=== PATIENT | male | born 1955 | race Hispanic/Latino ===

== ENCOUNTER 2018-06-15 20:01 | Inpatient (IN) | payer MEDICAID, OTHER ==
--- NOTE | 2018-06-15 20:46 | ED PDOC ---
Arrival/HPI - General Chief Complaint: Shortness Of Breath Time Seen by Provider: 06/15/18 20:05 Historian: Family - History of Present Illness Narrative History of Present Illness (Text): 06/15/18 20:20 Mike Mariee is a 62 year old male, whose past medical history includes CVA, tracheostomy, PEG-tube placement, hypertension, and Parkinson's disease, who presents to the ED brought in by family complaining of shortness of breath. Family report patient came to the ED after arriving on a flight from the [place] and began experiencing shortness of breath/difficulty breathing after landing. Family states patient was recently discharged from a hospital in the [place] last week following treatment for a recent CVA last month, during which he had a tracheostomy tube and PEG tube placed. Family also note patient recently had a fever 2 days ago. Patient is alert on arrival, family note patient is aphasic and bed-ridden following the CVA. Patient denies any chest pain, abdominal pain, back pain, neck pain, dizziness, or any other complaints. PMD: Dr. Kasandra Vasquez Symptom Onset: Gradual Symptom Course: Unchanged Activities at Onset: Light Context: Home Past Medical History - Provider Review Nursing Documentation Reviewed: Yes Primary Care Provider: Eitan Vasquez - Infectious Disease Hx of Infectious Diseases: None - Cardiac Hx Cardiac Disorders: Yes Hx Hypertension: Yes - Pulmonary Hx Respiratory Disorders: No - Neurological Hx Neurological Disorder: Yes HX Cerebrovascular Accident: Yes Hx Parkinson's Disease: Yes - HEENT Hx HEENT Disorder: No - Renal Hx Renal Disorder: No - Endocrine/Metabolic Hx Endocrine Disorders: No - Hematological/Oncological Hx Blood Disorders: No - Integumentary Hx Dermatological Disorder: No - Musculoskeletal/Rheumatological Hx Musculoskeletal Disorders: No - Gastrointestinal Other/Comment: + gtube - Genitourinary/Gynecological Hx Genitourinary Disorders: Yes Other/Comment: HX: PHIMOSIS. +suprapubic catheter - Psychiatric Hx Psychophysiologic Disorder: No Hx Substance Use: No - Surgical History Other/Comment: tracheostomy. gt tube. suprapubic catheter - Anesthesia Hx Anesthesia: Yes Hx Anesthesia Reactions: No Hx Malignant Hyperthermia: No Family/Social History - Physician Review Nursing Documentation Reviewed: Yes Family/Social History: Unknown Family HX Smoking Status: Never Smoked Hx Alcohol Use: Yes Hx Substance Use: No Allergies/Home Meds Allergies/Adverse Reactions: Allergies milk Allergy (Intermediate, Verified 06/15/18 20:19) NAUSEA Home Medications: Home Meds Medication Instructions Recorded Confirmed Atorvastatin [Lipitor] 20 mg PO HS 06/17/15 06/17/15 Lisinopril/Hydrochlorothiazide 1 each PO DAILY 12/03/17 12/04/17 [Lisinopril-Hctz 10-12.5 mg Tab] Carbidopa [Lodosyn] 25 mg PO TID 12/04/17 12/04/17 Review of Systems - Physician Review All systems were reviewed & negative as marked: Yes - Review of Systems Constitutional: Fevers Eyes: Normal ENT: Normal Respiratory: SOB Cardiovascular: Normal. absent: Chest Pain Gastrointestinal: Normal. absent: Abdominal Pain, Diarrhea, Nausea, Vomiting Genitourinary Male: Normal. absent: Dysuria, Frequency, Hematuria, Urinary Output Changes Musculoskeletal: Normal. absent: Back Pain, Neck Pain Skin: Normal. absent: Rash Neurological: Normal. absent: Headache, Dizziness Endocrine: Normal Hemo/Lymphatic: Normal Psychiatric: Normal Physical Exam Vital Signs Reviewed: Yes Vital Signs Temp Pulse Resp BP Pulse Ox 06/15/18 20:23 98.8 F 87 20 101/61 100 Temperature: Afebrile Blood Pressure: Normal Pulse: Regular Respiratory Rate: Normal Appearance: Positive for: Well-Appearing, Non-Toxic, Comfortable Pain Distress: None Mental Status: Positive for: Alert and Oriented X 3 - Systems Exam Head: Present: Atraumatic, Normocephalic Pupils: Present: PERRL Extroacular Muscles: Present: EOMI Conjunctiva: Present: Normal Mouth: Present: Moist Mucous Membranes Neck: Present: Normal Range of Motion, Other (Tracheostomy) Respiratory/Chest: Present: Clear to Auscultation, Good Air Exchange. No: Respiratory Distress, Accessory Muscle Use Cardiovascular: Present: Regular Rate and Rhythm, Normal S1, S2. No: Murmurs Abdomen: Present: Feeding Tubes (PEG tube). No: Tenderness, Distention, Peritoneal Signs Genitourinary Male: Present: Other (Suprapubic catheter) Back: Present: Normal Inspection. No: CVA Tenderness, Midline Tenderness, Paraspinal Tenderness Upper Extremity: Present: Normal Inspection. No: Cyanosis, Edema Lower Extremity: Present: Normal Inspection. No: Edema Neurological: Present: GCS=15, CN II-XII Intact. No: Speech Normal (Aphasic (old)) Skin: Present: Warm, Dry, Normal Color. No: Rashes Psychiatric: Present: Alert, Oriented x 3, Normal Insight, Normal Concentration Medical Decision Making ED Course and Treatment: 06/15/18 20:20 Impression: 62 year old male brought in by family for difficulty breath today. Plan: -- EKG -- Chest X-ray -- Labs -- Reassess and disposition Prior Visits: Notes and results from previous visits were reviewed. Progress Notes: Tracheostomy tube suctioned by nurse in Emergency department. Pt notes some relief after suctioning. Yellowish sputum noted. Reviewed EKG, NSR at 81 bpm. Prolonged QT. Non-specific ST/T wave changes. 06/15/18 22:15 Chest X-ray: LUNGS: There is evidence for pulmonary venous congestion compatible with mild CHF. PLEURAL SPACES: No pleural effusion or pneumothorax. MEDIASTINUM: The cardiac silhouette is mildly enlarged. BONES: No aggressive appearing osseous lesion seen. IMPRESSION: 1. The cardiac silhouette is mildly enlarged. 2. Mild CHF Electronically signed on Jun 15, 2018 10:13:41 PM EDT by: Beka Segura M.D., M.B.A., Certified By [employer] Trained MRI and CT Specialist 06/15/18 22:36 Case discussed with medical case manager longwall foreman, who is aware and agrees with plan. 06/15/18 22:[address] Al, who is aware and agrees with plan. Accepts pt in to hospitalist service. Pt will go to [facility] observation for pneumonia. - Lab Interpretations I have reviewed the lab results: Yes - RAD Interpretation Radiology Orders: 06/15/18 20:22 CHEST PORTABLE [RAD] Stat Copper Miner: ED Physician - EKG Interpretation Interpreted by ED Physician: Yes Type: 12 lead EKG - Scribe Statement The provider has reviewed the documentation as recorded by the Gillian Harrell Provider Scribe Attestation: All medical record entries made by the Scribe were at my direction and personally dictated by me. I have reviewed the chart and agree that the record accurately reflects my personal performance of the history, physical exam, medical decision making, and the department course for this patient. I have also personally directed, reviewed, and agree with the discharge instructions and disposition. Disposition/Present on Arrival - Present on Arrival Any Indicators Present on Arrival: No History of DVT/PE: No History of Uncontrolled Diabetes: No Urinary Catheter: Yes History of Decub. Ulcer: No History Surgical Site Infection Following: None - Disposition Have Diagnosis and Disposition been Completed?: Yes Diagnosis: Pneumonia Disposition: HOSPITALIZED Disposition Time: 22:33 Patient Problems: Current Active Problems Problem Status Onset Pneumonia Acute Condition: STABLE Forms: Mobile [employer] (Slovak)
[2018-06-15 20:50] LABS: HEMOGLOBIN 12.9 g/dL (14.0-18.0); MEAN CELL VOLUME 89.2 fl (80.0-105.0); MEAN CORPUSCULAR HEMOGLOBIN 29.7 pg (25.0-35.0); MEAN CORPUSCULAR HGB CONC 33.2 g/dl (31.0-37.0); MEAN PLATELET VOLUME 10.5 fl (7.0-11.0); RBC 4.35 10^6/uL (3.5-6.1); RED CELL DISTRIBUTION WIDTH 13.5 % (11.5-14.5); WHITE BLOOD COUNT 12.4 10^3/uL (4.5-11.0)
[2018-06-15 21:00] LABS: ALB/GLOB RATIO 0.9 (1.1-1.8); ALBUMIN 3.7 g/dL (3.0-4.8); ALT/SGPT 24 U/L (7-56); AST/SGOT 28 U/L (17-59); BLOOD UREA NITROGEN 23 mg/dL (7-21); GFR NON-AFRICAN AMERICAN > 60
[2018-06-15] MEDS ORDERED: Azithromycin 500MG/NS 250ml 500 MG/250 ML BAG IV STA (22:32)
[2018-06-15] MEDS ORDERED: cefTRIAXone 1 gm 1 GM/100 ML BAG IV STA (22:32)
--- NOTE | 2018-06-16 00:24 | CP.PCM.HP ---
<Abhijeet Lucas - Last Filed: 06/16/18 05:10> History of Present Illness - History of Present Illness History of Present Illness: PGY-1 Medicine H&P for Dr. Al CC: Shortness of breath HPI: Patient is a 62 year old male with a past medical history of CVA (1 month ago), tracheostomy, PEG-tube placement, suprapubic catheter placement, hypertension, and Parkinson's disease, who presents to the ED brought in by family complaining of shortness of breath. and daughter was at bedside. History was provided by the daughter as patient is unable to speak due to his tracheostomy. Daughter states that patient is having complaints of shortness of breath that started today. Patient arrived from a flight from [facility] today. Patient's daughter states that patient flew to [facility] 7 weeks ago for vacation. Patient had a stroke on 05/11/2018 and was hospitalized in the [facility]. During his hospital stay, he had a tracheostomy tube, PEG tube, and suprapubic catheter placed. Patient was discharged 3 days ago from the hospital without discharge instructions as per daughter. Patient has been bed- ridden ever since the stroke. Daughter states that the patient had a fever at home today but was unsure of the temperature. She also states that her father had lost weight due to his hospitalization and unsure how much weight he lost. She stae he has no complaints of chills, night sweats, headaches, changes in vision, abdominal pain, nausea, vomiting, diarrhea, or urinary symptoms. 12-point ROS reviewed and negative, except mentioned in HPI. PMHx: CVA, tracheostomy, hypertension, and Parkinson's disease PSHx: Surgery to correct phimosis, tracheostomy, PEG-tube placement, suprapubic catheter placement Allergies: NKDA Social Hx: Denies tobacco, alcohol, or drug use. 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 Family Hx: Mother had diabetes. Brother of a heart attack at age 63. Medications: see MAR PMD: Dr. Kasandra Vasquez Pharmacy: [facility] on in [place]- will call pharmacy in the morning Present on Admission - Present on Admission Any Indicators Present on Admission: Yes History of DVT/PE: No History of Uncontrolled Diabetes: No Urinary Catheter: Yes (Suprapubic catheter) Decubitus Ulcer Present: Yes Decubitus Ulcer Stage: II Past Patient History - Infectious Disease Hx of Infectious Diseases: None - Past Medical History & Family History Past Medical History?: Yes - Past Social History Smoking Status: Never Smoked - CARDIAC Hx Cardiac Disorders: Yes Hx Hypertension: Yes - PULMONARY Hx Respiratory Disorders: No - NEUROLOGICAL Hx Neurological Disorder: Yes HX Cerebrovascular Accident: Yes Hx Parkinson's Disease: Yes - HEENT Hx HEENT Problems: No - RENAL Hx Chronic Kidney Disease: No - ENDOCRINE/METABOLIC Hx Endocrine Disorders: No - HEMATOLOGICAL/ONCOLOGICAL Hx Blood Disorders: No - INTEGUMENTARY Hx Dermatological Problems: No - MUSCULOSKELETAL/RHEUMATOLOGICAL Hx Musculoskeletal Disorders: No - GASTROINTESTINAL Other/Comment: + gtube - GENITOURINARY/GYNECOLOGICAL Hx Genitourinary Disorders: Yes Other/Comment: HX: PHIMOSIS. +suprapubic catheter - PSYCHIATRIC Hx Psychophysiologic Disorder: No Hx Substance Use: No - SURGICAL HISTORY Other/Comment: tracheostomy. gt tube. suprapubic catheter - ANESTHESIA Hx Anesthesia: Yes Hx Anesthesia Reactions: No Hx Malignant Hyperthermia: No Meds Allergies/Adverse Reactions: Allergies Allergy/AdvReac Type Severity Reaction Status Date / Time milk Allergy Intermediate NAUSEA Verified 06/15/18 20:19 Physical Exam - Constitutional Appears: No Acute Distress, Chronically Ill - Head Exam Head Exam: ATRAUMATIC, NORMAL INSPECTION - Eye Exam Eye Exam: EOMI, Normal appearance - ENT Exam ENT Exam: Mucous Membranes Moist - Neck Exam Additional comments: Tracheostomy tube and collar in place. - Respiratory Exam Respiratory Exam: Rhonchi (course rhonchi heard on right lung). absent: Accessory Muscle Use, Rales, Wheezes, Respiratory Distress - Cardiovascular Exam Cardiovascular Exam: REGULAR RHYTHM, +S1, +S2. absent: Bradycardia, Tachycardia, Gallop, Rubs, Systolic Murmur - GI/Abdominal Exam GI & Abdominal Exam: Normal Bowel Sounds, Soft. absent: Distended, Firm, Guarding, Tenderness Additional comments: G-tube in place - Exam Exam: NORMAL INSPECTION Additional comments: No phimosis noted. Suprapubic catheter in place draining clear, yellow urine. - Extremities Exam Extremities exam: Negative for: calf tenderness, pedal edema - Back Exam Back exam: absent: CVA tenderness (L), CVA tenderness (R), paraspinal tenderness, vertebral tenderness - Neurological Exam Neurological exam: Alert, CN II-XII Intact, Oriented x3 - Psychiatric Exam Psychiatric exam: Normal Affect, Normal Mood - Skin Skin Exam: Dry, Normal Color, Warm Additional comments: Stage I decubitus ulcers noted present on sacrum and adjoining area of buttocks. Single 4 x 4cm unstageable ulcer on distal lateral left leg Results - Vital Signs Recent Vital Signs: Last Vital Signs Temp 98.8 F 06/15/18 20:23 Pulse 87 06/15/18 20:23 Resp 20 06/15/18 20:23 BP 101/61 06/15/18 20:23 Pulse Ox 97 06/15/18 20:30 - Labs Result Diagrams: 06/15/18 20:40 06/15/18 20:40 Labs: Laboratory Results - last 24 hr 06/15/18 06/15/18 06/15/18 20:40 20:40 20:45 WBC 12.4 H RBC 4.35 Hgb 12.9 L Hct 38.8 L MCV 89.2 MCH 29.7 MCHC 33.2 RDW 13.5 Plt Count 347 MPV 10.5 Sodium 140 Potassium 3.8 Chloride 99 Carbon Dioxide 26 Anion Gap 18 BUN 23 H Creatinine 0.8 Est GFR ( Amer) > 60 Est GFR (Non-Af Amer) > 60 Random Glucose 105 Calcium 9.0 Phosphorus Total Bilirubin 0.6 AST 28 ALT 24 Alkaline Phosphatase 108 NT-Pro-B Natriuret Pep 78.1 Total Protein 7.8 Albumin 3.7 Globulin 4.1 Albumin/Globulin Ratio 0.9 L 06/15/18 20:45 WBC RBC Hgb Hct MCV MCH MCHC RDW Plt Count MPV Sodium Potassium Chloride Carbon Dioxide Anion Gap BUN Creatinine Est GFR ( Amer) Est GFR (Non-Af Amer) Random Glucose Calcium Phosphorus 4.3 Total Bilirubin AST ALT Alkaline Phosphatase NT-Pro-B Natriuret Pep Total Protein Albumin Globulin Albumin/Globulin Ratio Assessment & Plan - Assessment and Plan (Free Text) Assessment: Patient is a 62 year old male with a past medical history of CVA (1 month ago), tracheostomy, PEG-tube placement, hypertension, and Parkinson's disease, who presents to the ED brought in by family complaining of shortness of breath. Plan: Pneumonia - CXR: pending official read - Start Rocephin 1g PO QD (Started on 06/16) - Start Azithromax 500mg PO QD (Started on 06/16) - CURB-65 score: 1 - ID consulted, Dr. Busby - Follow up Procalcitonin level, blood cultures - Joyoebs PRN for SOB History of stroke, unknown cause - Patient had a CVA while vacationing in [facility], medical records limited - EKG: NSR @ 81 bpm, no ST changes - Start Lipitor 20mg HS, ASA daily - Neurology consulted, Joey Camejo - Follow up HbA1C, Lipid panel, TSH - Follow up Echocardiogram, carotid ultrasound - PT/OT/Speech therapy Hypertension - Continue Lisinopril 10mg PEG QD and HTZ 12.5mg PEG QD with parameters - Continue to monitor Decubitus ulcer - Local wound care, wound care nurse consulted - Turn and reposition Q2H - Air mattress PEG - Patient has a G-tube placed after his CVA and tracheostomy placement - Patient is allergic to milk, consulted sap pi architect for recommendations for tube feeding - Flush Q4 hours after feeds Suprapubic catheter - Placed during hospital stay in [facility] - Patient and family unsure why it was placed - Patient is draining clear, yellow urine Tracheostomy - Placed during hospital stay in [facility] - Suction PRN - Patient was initially intubated Parkinson's disease - Continue home Sinemet Prophylaxis: - DVT: Lovenox 40mg SC Q8 - GI: Protonix 40mg IVF QD Patient seen and case discussed with attending, Dr. Al. Abhijeet Lucas, PGY-1 <Jyoti Al - Last Filed: 06/16/18 05:52> Results - Vital Signs Recent Vital Signs: Last Vital Signs Temp 98.8 F 06/15/18 20:23 Pulse 76 06/15/18 23:41 Resp 18 06/16/18 01:32 BP 108/56 L 06/15/18 23:41 Pulse Ox 95 06/15/18 23:41 - Labs Result Diagrams: 06/15/18 20:40 06/15/18 20:40 Labs: Laboratory Results - last 24 hr 06/15/18 06/15/18 06/15/18 20:40 20:40 20:45 WBC 12.4 H RBC 4.35 Hgb 12.9 L Hct 38.8 L MCV 89.2 MCH 29.7 MCHC 33.2 RDW 13.5 Plt Count 347 MPV 10.5 Sodium 140 Potassium 3.8 Chloride 99 Carbon Dioxide 26 Anion Gap 18 BUN 23 H Creatinine 0.8 Est GFR ( Amer) > 60 Est GFR (Non-Af Amer) > 60 Random Glucose 105 Calcium 9.0 Phosphorus Total Bilirubin 0.6 AST 28 ALT 24 Alkaline Phosphatase 108 NT-Pro-B Natriuret Pep 78.1 Total Protein 7.8 Albumin 3.7 Globulin 4.1 Albumin/Globulin Ratio 0.9 L 06/15/18 20:45 WBC RBC Hgb Hct MCV MCH MCHC RDW Plt Count MPV Sodium Potassium Chloride Carbon Dioxide Anion Gap BUN Creatinine Est GFR ( Amer) Est GFR (Non-Af Amer) Random Glucose Calcium Phosphorus 4.3 Total Bilirubin AST ALT Alkaline Phosphatase NT-Pro-B Natriuret Pep Total Protein Albumin Globulin Albumin/Globulin Ratio Attending/Attestation - Attestation I have personally seen and examined this patient.: Yes I have fully participated in the care of the patient.: Yes I have reviewed all pertinent clinical information: Yes Notes (Text): 06/16/18 05:47 Pt seen with the resident by the bedside. Case discussed in detail. In addition to findings noted on physical exam,pt has a residual weakness of his R side. Agree with rest of documentation,assessment and plan of treatment.
[2018-06-16 08:08] LABS: BASO # 0.03 K/mm3 (0.0-2.0); BASO % 0.3 % (0.0-3.0); EOS # 0.1 (0.0-0.7); HEMOGLOBIN 11.7 g/dL (14.0-18.0); LYMPH # 1.4 (1.2-3.4); LYMPH % 15.8 % (22.0-35.0); MEAN CELL VOLUME 90.5 fl (80.0-105.0); MEAN CORPUSCULAR HEMOGLOBIN 29.3 pg (25.0-35.0); MEAN CORPUSCULAR HGB CONC 32.3 g/dl (31.0-37.0); MEAN PLATELET VOLUME 10.8 fl (7.0-11.0); MONO # 0.4 (0.1-0.6); MONO % 4.5 % (1.0-6.0); RED CELL DISTRIBUTION WIDTH 13.7 % (11.5-14.5); WHITE BLOOD COUNT 9.1 10^3/uL (4.5-11.0)
[2018-06-16 08:17] LABS: ALB/GLOB RATIO 0.9 (1.1-1.8); ALBUMIN 3.3 g/dL (3.0-4.8); ALT/SGPT 20 U/L (7-56); AST/SGOT 27 U/L (17-59); BLOOD UREA NITROGEN 23 mg/dL (7-21); CALCIUM 8.7 mg/dL (8.4-10.5); GFR NON-AFRICAN AMERICAN > 60; HDL CHOLESTEROL 23 mg/dL (29-60)
[2018-06-16 08:24] LABS: LDL CHOLESTEROL 77 mg/dL (0-129)
[2018-06-16] MEDS ORDERED: Azithromycin 500MG/NS 250ml 500 MG/250 ML BAG IVPB SCH (10:00)
[2018-06-16] MEDS ORDERED: Azithromycin 250 MG in Sodium Chloride 0.9% 250 ML IVPB SCH (10:00)
[2018-06-16] MEDS ORDERED: cefTRIAXone 1 gm 1 GM/100 ML BAG IVPB SCH (10:00)
--- NOTE | 2018-06-16 10:14 | RAD ---
Date of service: 06/15/2018 HISTORY: sob COMPARISON: 09/18/2017 TECHNIQUE: 1 view obtained. FINDINGS: LUNGS: No active pulmonary disease. PLEURA: No significant pleural effusion identified, no pneumothorax apparent. CARDIOVASCULAR: No aortic atherosclerotic calcification present. Normal cardiac size. No pulmonary vascular congestion. OSSEOUS STRUCTURES: No significant abnormalities. VISUALIZED UPPER ABDOMEN: Normal. OTHER FINDINGS: None. IMPRESSION: No active disease.
[2018-06-16] MEDS: Enoxaparin 40 mg Syringe SC SCH (10:43)
--- NOTE | 2018-06-16 10:51 | CARD ---
APPROVED REPORT Date of service: 06/15/2018 EKG Measurement Heart [id number] <Conclusion> Normal sinus rhythm Prolonged QT Abnormal ECG
--- NOTE | 2018-06-16 12:18 | US ---
PROCEDURE: Bilateral carotid artery duplex ultrasound HISTORY: Carotid stenosis CVA PHYSICIAN(S): Enrique Ellsworth MD. TECHNIQUE: Duplex sonography and color-flow Doppler were used to evaluate the carotid bifurcations and limited segments of the vertebral arteries bilaterally. FINDINGS: There is mild smooth heterogeneous plaque noted at the carotid bifurcations bilaterally. The peak systolic velocity in the proximal right internal carotid artery is 76 cm/sec. This corresponds to a 20 to 39% proximal right ICA stenosis. Normal systolic velocities are noted in the proximal right external carotid artery. There is antegrade flow in the right vertebral artery. The peak systolic velocity in the proximal left internal carotid artery is 80 cm/sec. This corresponds to a 20 to 39% proximal left ICA stenosis. Normal systolic velocities are noted in the proximal left external carotid artery. There is antegrade flow in the left vertebral artery. IMPRESSION: 1. Bilateral 20-39% proximal ICA stenoses. 2. Antegrade flow in both vertebral arteries.
[2018-06-16] MEDS ORDERED: Iohexol 350 MG/100 ML VIAL ONE (13:32)
[2018-06-16 16:29] LABS: ARTERIAL BLOOD GAS HCO3 24.9 mmol/L (21-28); ARTERIAL BLOOD GAS PCO2 35 mm/Hg (35-45); ARTERIAL BLOOD GAS PH 7.46 (7.35-7.45)
--- NOTE | 2018-06-16 16:36 | CARD ---
APPROVED REPORT Date of service: 06/16/2018 EXAM: Two-dimensional and M-mode echocardiogram with Doppler and color Doppler. INDICATION CVA/TIA 2D DIMENSIONS Left Atrium (2D)3.5 (1.6-4.0cm)IVSd1.4 (0.7-1.1cm) LVDd4.2 (3.9-5.9cm)PWd1.1 (0.7-1.1cm) LVDs2.8 (2.5-4.0cm)FS (%) 32.9 % LVEF (%)61.8 (>50%) M-Mode DIMENSIONS Aortic Root3.10 (2.2-3.7cm)Aortic Cusp Exc.1.50 (1.5-2.0cm) Aortic Valve AoV Peak Pcyjfusl513.0cm/Lisandra Peak GR.12mmHg Mitral Valve MV E Xxbcezci58.1cm/sMV A Buwaugtg02.7cm/sE/A ratio0.8 TDI E/Lateral E'0.0E/Medial E'0.0 LEFT VENTRICLE The left ventricle is normal size. There is mild concentric left ventricular hypertrophy. The left ventricular function is normal. The left ventricular ejection fraction is within the normal range. There is normal LV segmental wall motion. Transmitral Doppler flow pattern is Grade I-abnormal relaxation pattern. RIGHT VENTRICLE The right ventricle is normal size. There is normal right ventricular wall thickness. The right ventricular systolic function is normal. ATRIA The left atrium size is normal. The right atrium size is normal. AORTIC VALVE The aortic valve is bicuspid. There is moderate to severe aortic regurgitation. MITRAL VALVE The mitral valve is normal in structure. There is no mitral valve regurgitation noted. There is no mitral valve stenosis. TRICUSPID VALVE The tricuspid valve is normal in structure. There is trace tricuspid regurgitation. GREAT VESSELS The aortic root is normal in size. The IVC is normal in size and collapses >50% with inspiration. <Conclusion> There is mild concentric left ventricular hypertrophy. The left ventricular function is normal. The left ventricular ejection fraction is within the normal range. There is normal LV segmental wall motion. Transmitral Doppler flow pattern is Grade I-abnormal relaxation pattern. The aortic valve is bicuspid. There is moderate to severe aortic regurgitation.
--- NOTE | 2018-06-16 20:51 | CON ---
DATE: 06/16/2018 The patient is seen earlier today in room 571, bed 1. CHIEF COMPLAINT: Shortness of breath intermittently times one day. HISTORY OF PRESENT ILLNESS: A 62-year-old male, who was visiting [facility] and had a cerebrovascular accident and was hospitalized for over a month, also with hypertension and Parkinson's disease. In the [place], the patient had a tracheostomy and PEG tube placement and suprapubic catheter and was discharged from the hospital. The patient's family flew him back to [facility] and yesterday after arriving in [place], he was brought into [facility]. There has been no fevers, no chills. There is mild shortness of breath. No chest pain. No abdominal pain, diarrhea, or constipation. PAST MEDICAL HISTORY: Significant for Parkinson's and recent cerebrovascular accident with one-sided weakness and hypertension. PAST SURGICAL HISTORY: Significant for circumcision on 12/07/2017. The patient with also recent trach and PEG and suprapubic catheter. ALLERGIES: THE PATIENT IS ALLERGIC TO MILK. MEDICATIONS AT HOME: Include the carbidopa, atorvastatin, lisinopril, hydrochlorothiazide. PHYSICAL EXAMINATION: GENERAL: He is in bed, appearing chronically ill, cachectic, restrained. VITAL SIGNS: Temperature of 98, pulse of 76 and up to 87, respiratory rate of 18, blood pressure is 105/60. HEENT: Unremarkable. NECK: Supple. LUNGS: Have decreased breath sounds. HEART: Normal S1, S2. ABDOMEN: Soft, nontender. LABORATORY EXAMINATION: Reveals a white count of 12,400, hemoglobin of 12, platelets of 347 with the BUN of 23, creatinine of 0.8 and LFTs are noted. The patient had a chest x-ray, official report is not available. ASSESSMENT AND PLAN: A 62-year-old male with: 1. Recent cerebrovascular accident with weakness with leukocytosis, must rule out healthcare-associated pneumonia versus urine as a source and trach, PEG or a suprapubic catheter. We will start the patient on vancomycin and Maxipime pending panculture results of procalcitonin, blood, urine, sputum, and MRSA screen. We will discontinue the azithromycin and ceftriaxone, and use vancomycin and Maxipime Aren Webb MD [facility] # [id number]
[2018-06-16] MEDS: Sodium Chloride 0.9% 1,000 ML IV SCH (21:00)
--- NOTE | 2018-06-16 23:39 | CP.PCM.CON ---
<MeloMoy - Last Filed: 06/17/18 06:50> History of Present Illness - History of Present Illness History of Present Illness: Neuro consult (Dr. Cook): Melo PGY - 2 Consult requested by: Dr. Al Reason for consult: CVA in [facility] 62 M with pertinent medical history of recent CVA and Parkinson's Disease presents s/p recent CVA. Per patient's daughter, he had a stroke on 06/11/2018 and was hospitalized in the [facility]. During his hospital stay, he had a tracheostomy tube, PEG tube, and suprapubic catheter placed. Patient was discharged 3 days ago from the hospital, with discharge instructions in [place]. Patient is currently unable to speak 2/2 his tracheostomy tube, but is able to follow commands and comprehends what we are saying during interview. Review of Systems: 12-point ROS reviewed and negative, except mentioned in HPI. PMHx: CVA, tracheostomy, hypertension, and Parkinson's disease PSHx: Surgery to correct phimosis, tracheostomy, PEG-tube placement, suprapubic catheter placement Allergies: NKDA Social Hx: Denies tobacco, alcohol, or drug use. 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 Family Hx: Mother had diabetes. Brother of a heart attack at age 63. Medications: see MAR Past Patient History - Infectious Disease Hx of Infectious Diseases: None - Past Medical History & Family History Past Medical History?: Yes - Past Social History Smoking Status: Never Smoked - CARDIAC Hx Cardiac Disorders: Yes Hx Hypertension: Yes - PULMONARY Hx Respiratory Disorders: No - NEUROLOGICAL HX Cerebrovascular Accident: Yes (1 month ago) - HEENT Hx HEENT Problems: No - RENAL Hx Chronic Kidney Disease: No - ENDOCRINE/METABOLIC Hx Endocrine Disorders: No - HEMATOLOGICAL/ONCOLOGICAL Hx Blood Disorders: No - INTEGUMENTARY Hx Dermatological Problems: No - MUSCULOSKELETAL/RHEUMATOLOGICAL Hx Musculoskeletal Disorders: No - GASTROINTESTINAL Other/Comment: + gtube - GENITOURINARY/GYNECOLOGICAL Hx Genitourinary Disorders: Yes Other/Comment: HX: PHIMOSIS. +suprapubic catheter - PSYCHIATRIC Hx Psychophysiologic Disorder: No Hx Substance Use: No - SURGICAL HISTORY Other/Comment: tracheostomy. gt tube. suprapubic catheter - ANESTHESIA Hx Anesthesia: Yes Hx Anesthesia Reactions: No Hx Malignant Hyperthermia: No Meds Allergies/Adverse Reactions: Allergies Allergy/AdvReac Type Severity Reaction Status Date / Time milk Allergy Intermediate NAUSEA Verified 06/15/18 20:19 - Medications Medications: Current Medications Albuterol/Ipratropium (Duoneb 3 Mg/0.5 Mg (3 Ml) Ud) 3 ml IH Q2H PRN PRN Reason: Shortness of Breath Aspirin (Aspirin Chewable) 81 mg PEG [facility]ILY [facility] Last Admin: 06/16/18 10:43 Dose: 81 mg Atorvastatin Calcium (Lipitor) 80 mg PEG DIN [facility] Last Admin: 06/16/18 18:00 Dose: 80 mg Carbidopa/Levodopa (Sinemet) 1 tab PEG Q8 [facility] Last Admin: 06/16/18 21:35 Dose: 1 tab Enoxaparin Sodium (Lovenox) 40 mg SC [facility]ILY [facility]; Protocol Last Admin: 06/16/18 10:43 Dose: 40 mg Hydrochlorothiazide (Hydrodiuril) 12.5 mg PEG DAILY [facility] Last Admin: 06/16/18 10:42 Dose: 12.5 mg Sodium Chloride (Sodium Chloride 0.9%) 1,000 mls @ 100 mls/hr IV .Q10H [facility] Lisinopril (Zestril) 10 mg PEG [facility]ILY [facility] Last Admin: 06/16/18 10:46 Dose: 10 mg Pantoprazole Sodium (Protonix Inj) 40 mg IVP [facility]ILY [facility] Last Admin: 06/16/18 10:43 Dose: 40 mg Physical Exam - Constitutional Appears: Non-toxic - Head Exam Head Exam: ATRAUMATIC, NORMAL INSPECTION, NORMOCEPHALIC Additional comments: Tracheostomy tube in place - Eye Exam Eye Exam: EOMI, Normal appearance, PERRL Pupil Exam: NORMAL ACCOMODATION, PERRL - ENT Exam ENT Exam: Mucous Membranes Moist, Normal Exam - Neck Exam Neck exam: Positive for: Normal Inspection - Respiratory Exam Respiratory Exam: Clear to Auscultation Bilateral, NORMAL BREATHING PATTERN - Cardiovascular Exam Cardiovascular Exam: REGULAR RHYTHM - GI/Abdominal Exam GI & Abdominal Exam: Normal Bowel Sounds, Soft. absent: Tenderness - Extremities Exam Extremities exam: Positive for: normal inspection - Back Exam Back exam: NORMAL INSPECTION - Neurological Exam Neurological exam: Alert, CN II-XII Intact, Normal Gait, Oriented x3, Reflexes Normal - Psychiatric Exam Psychiatric exam: Normal Affect, Normal Mood - Skin Skin Exam: Dry, Intact, Normal Color, Warm - Additional Findings Additional findings: Patient is able to move all extremities; no loss of sensation; no cerebellar signs; follows commands; no CN deficits. Cogwheel rigidity, resting tremor, mask facies noted Results - Vital Signs Recent Vital Signs: Last Vital Signs Temp 98.9 F 06/16/18 21:51 Pulse 61 06/16/18 21:51 Resp 18 06/16/18 21:51 BP 101/62 06/16/18 21:51 Pulse Ox 96 06/16/18 21:51 - Labs Result Diagrams: 06/16/18 07:30 06/16/18 07:30 Labs: Laboratory Results - last 24 hr 06/16/18 06/16/18 06/16/18 07:30 07:30 07:30 WBC 9.1 D RBC 4.00 Hgb 11.7 L Hct 36.2 L MCV 90.5 MCH 29.3 MCHC 32.3 RDW 13.7 Plt Count 322 MPV 10.8 Neut % (Auto) 78.4 H Lymph % (Auto) 15.8 L Russell % (Auto) 4.5 Eos % (Auto) 1.0 L Baso % (Auto) 0.3 Lymph # (Auto) 1.4 Russell # (Auto) 0.4 Eos # (Auto) 0.1 Baso # (Auto) 0.03 Absolute Neuts (auto) 7.15 H pCO2 pO2 HCO3 ABG pH ABG Total CO2 ABG O2 Saturation ABG Base Excess ABG Potassium Glucose Lactate FiO2 Sodium 140 Potassium 3.3 L Chloride 103 Carbon Dioxide 28 Anion Gap 13 BUN 23 H Creatinine 0.6 L Est GFR ( Amer) > 60 Est GFR (Non-Af Amer) > 60 Random Glucose 77 Hemoglobin A1c 5.0 Calcium 8.7 Phosphorus 3.4 Magnesium 2.1 Total Bilirubin 0.6 AST 27 ALT 20 Alkaline Phosphatase 97 Total Protein 7.0 Albumin 3.3 Globulin 3.7 Albumin/Globulin Ratio 0.9 L Triglycerides 104 Cholesterol 122 L LDL Cholesterol Direct 77 HDL Cholesterol 23 L Procalcitonin TSH 3rd Generation Arterial Blood Potassium 06/16/18 06/16/18 06/16/18 07:30 07:30 16:19 WBC RBC Hgb Hct MCV MCH MCHC RDW Plt Count MPV Neut % (Auto) Lymph % (Auto) Russell % (Auto) Eos % (Auto) Baso % (Auto) Lymph # (Auto) Russell # (Auto) Eos # (Auto) Baso # (Auto) Absolute Neuts (auto) pCO2 35 pO2 69.0 L HCO3 24.9 ABG pH 7.46 H ABG Total CO2 26.0 ABG O2 Saturation 97.0 ABG Base Excess 1.4 ABG Potassium 3.5 L Glucose 74 L Lactate 0.7 FiO2 28.0 Sodium 140.0 Potassium Chloride 107.0 Carbon Dioxide Anion Gap BUN Creatinine Est GFR ( Amer) Est GFR (Non-Af Amer) Random Glucose Hemoglobin A1c Calcium Phosphorus Magnesium Total Bilirubin AST ALT Alkaline Phosphatase Total Protein Albumin Globulin Albumin/Globulin Ratio Triglycerides Cholesterol LDL Cholesterol Direct HDL Cholesterol Procalcitonin 0.13 L TSH 3rd Generation 1.23 Arterial Blood Potassium 3.5 L Assessment & Plan - Assessment and Plan (Free Text) Assessment: 62 M with pertinent history of alleged CVA presents s/p trach, peg tube placement after being hospitalized in the . Given patient's current physical exam, imaging findings, it is unclear that patient actually had a stroke; he is without sensory, motor, speech, or visual deficits. Many of the symptoms that likely led to his hospitalization in are due to his Parkinson's disease. Plan Generalized Weakness, rule out acute or chronic CVA - MRA, CTA, and CT Head - PT/OT/LUNCH COOK - Nutrition consult to get patient's strength up - Start patient on Amantadine to help with symptoms <Naseem Cook - Last Filed: 06/18/18 12:02> Meds - Medications Medications: Current Medications Albuterol/Ipratropium (Duoneb 3 Mg/0.5 Mg (3 Ml) Ud) 3 ml IH Q2H PRN PRN Reason: Shortness of Breath Albuterol/Ipratropium (Duoneb 3 Mg/0.5 Mg (3 Ml) Ud) 3 ml [facility]H [id number] Last Admin: 06/18/18 07:47 Dose: 3 ml Amantadine HCl (Amantadine 100 Mg Cap) 100 mg PO DAILY [facility] Last Admin: 06/18/18 10:11 Dose: 100 mg Aspirin (Aspirin Chewable) 81 mg PEG [facility]ILY [facility] Last Admin: 06/18/18 10:11 Dose: 81 mg Atorvastatin Calcium (Lipitor) 80 mg PEG [facility]IN [facility] Last Admin: 06/17/18 19:06 Dose: 80 mg Carbidopa/Levodopa (Sinemet) 1 tab PEG 1100,1600 [facility] Last Admin: 06/18/18 10:11 Dose: 1 tab Carbidopa/Levodopa (Sinemet 10/100) 2 tab PO 0700 [facility] Last Admin: 06/18/18 07:30 Dose: Not Given Enoxaparin Sodium (Lovenox) 40 mg SC [facility]ILY [facility]; Protocol Last Admin: 06/18/18 10:10 Dose: 40 mg Hydrochlorothiazide (Hydrodiuril) 12.5 mg PEG [facility]ILY [facility] Last Admin: 06/18/18 10:10 Dose: 12.5 mg Cefepime HCl (Maxipime 2gm) 2 gm in 100 mls @ 100 mls/hr IVPB Q8H [facility]; Protocol Stop: 06/22/18 07:46 Last Admin: 06/18/18 07:00 Dose: 100 mls/hr Lisinopril (Zestril) 10 mg PEG [facility] Last Admin: 06/18/18 10:11 Dose: 10 mg Pantoprazole Sodium (Protonix Inj) 40 mg IVP [facility]ILY [facility] Last Admin: 06/18/18 10:11 Dose: 40 mg Results - Vital Signs Recent Vital Signs: Last Vital Signs Temp 99 F 06/18/18 06:00 Pulse 65 06/18/18 06:00 Resp 18 06/18/18 06:00 BP 120/69 06/18/18 06:00 Pulse Ox 95 06/18/18 06:00 - Labs Result Diagrams: 06/18/18 07:00 06/18/18 07:00 Labs: Laboratory Results - last 24 hr 06/18/18 06/18/18 06/18/18 07:00 07:00 11:47 WBC 5.9 RBC 3.87 Hgb 11.2 L Hct 34.7 L MCV 89.7 MCH 28.9 MCHC 32.3 RDW 13.4 Plt Count 293 MPV 10.6 Neut % (Auto) 74.5 H Lymph % (Auto) 18.4 L Russell % (Auto) 5.9 Eos % (Auto) 1.2 L Baso % (Auto) 0.0 Lymph # (Auto) 1.1 L Russell # (Auto) 0.4 Eos # (Auto) 0.1 Baso # (Auto) 0.00 Absolute Neuts (auto) 4.42 Sodium 141 Potassium 3.7 Chloride 107 Carbon Dioxide 29 Anion Gap 10 BUN 22 H Creatinine 0.6 L Est GFR ( Amer) > 60 Est GFR (Non-Af Amer) > 60 POC Glucose (mg/dL) 158 H Random Glucose 130 H Calcium 8.2 L Total Bilirubin 0.4 AST 24 ALT 19 Alkaline Phosphatase 99 Total Protein 6.6 Albumin 3.0 Globulin 3.6 Albumin/Globulin Ratio 0.8 L Attending/Attestation - Attestation I have personally seen and examined this patient.: Yes I have fully participated in the care of the patient.: Yes I have reviewed all pertinent clinical information: Yes Notes (Text): I agree with the assessment and plan. Will evaluate for and treat Parkinsons and recent ischemic stroke as outlined above.
[2018-06-17 00:42] LABS: URINE BILIRUBIN NEGATIVE (NEGATIVE); URINE BLOOD SMALL (NEGATIVE); URINE GLUCOSE (UA) NEGATIVE (NEGATIVE); URINE LEUKOCYTE ESTERASE MODERATE Leu/uL (NEGATIVE); URINE PROTEIN TRACE mg/dL (<30 mg/dL); URINE UROBILINOGEN 0.2 E.U./dL (<1 E.U./dL)
[2018-06-17 00:45] LABS: URINE APPEARANCE CLOUDY (CLEAR); URINE COLOR YELLOW (YELLOW)
[2018-06-17 01:05] LABS: URINE WBC 20 - 25 /hpf (0-6)
[2018-06-17 01:06] LABS: URINE BACTERIA SMALL /hpf; URINE EPITHELIAL CELLS 0 - 2 /hpf (0-5)
[2018-06-17 07:19] LABS: BASO # 0.03 K/mm3 (0.0-2.0); BASO % 0.4 % (0.0-3.0); EOS # 0.1 (0.0-0.7); HEMOGLOBIN 10.9 g/dL (14.0-18.0); LYMPH # 1.3 (1.2-3.4); LYMPH % 19.1 % (22.0-35.0); MEAN CELL VOLUME 91.1 fl (80.0-105.0); MEAN CORPUSCULAR HEMOGLOBIN 28.6 pg (25.0-35.0); MEAN CORPUSCULAR HGB CONC 31.4 g/dl (31.0-37.0); MEAN PLATELET VOLUME 10.5 fl (7.0-11.0); MONO # 0.4 (0.1-0.6); MONO % 5.5 % (1.0-6.0); RBC 3.81 10^6/uL (3.5-6.1); RED CELL DISTRIBUTION WIDTH 13.5 % (11.5-14.5); WHITE BLOOD COUNT 6.9 10^3/uL (4.5-11.0)
[2018-06-17 07:44] LABS: ALB/GLOB RATIO 0.9 (1.1-1.8); ALT/SGPT 8 U/L (7-56); AST/SGOT 25 U/L (17-59); BLOOD UREA NITROGEN 21 mg/dL (7-21); CALCIUM 8.5 mg/dL (8.4-10.5); GFR NON-AFRICAN AMERICAN > 60
--- NOTE | 2018-06-17 08:47 | CT ---
Date of service: 06/17/2018 PROCEDURE: CT HEAD WITHOUT CONTRAST. HISTORY: stroke COMPARISON: None available. TECHNIQUE: Axial computed tomography images were obtained through the head/brain without intravenous contrast. Radiation dose: Total exam DLP = 968.78 mGy-cm. This CT exam was performed using one or more of the following dose reduction techniques: Automated exposure control, adjustment of the mA and/or kV according to patient size, and/or use of iterative reconstruction technique. FINDINGS: HEMORRHAGE: No intracranial hemorrhage. BRAIN: There are chronic lacunar infarctions in bilateral basal ganglia. There is a chronic infarction in the occipital lobe.. There is no mass, mass effect or abnormal extra-axial fluid collection. There is no territorial infarction. The midline sagittal structures are normal. VENTRICLES: There is mild age-related global parenchymal volume loss and proportionate enlargement of the ventricles and cortical sulci. CALVARIUM: There is no calvarial fracture or extracranial soft tissue swelling. PARANASAL SINUSES: Predominantly clear. MASTOID AIR CELLS: Predominantly clear. OTHER FINDINGS: None. IMPRESSION: No acute intracranial abnormality. Chronic lacunar infarctions in bilateral basal ganglia and chronic infarction in the left occipital.
--- NOTE | 2018-06-17 09:57 | CP.PCM.PN ---
<Jeremy Mackenzie - Last Filed: 06/17/18 15:15> Subjective - Date & Time of Evaluation Date of Evaluation: 06/17/18 Time of Evaluation: 09:30 - Subjective Subjective: Jeremy Mackenzie DO, PGY-2: Neurology Progress Note for Dr. Cook Patient was seen and examined at bedside. Daughter was utilized as vein access technician. Patient reports sleeping well throughout the night and denies any visual hallucinations. Family reported patient was diagnosed with Parkinson's less than a year ago. He denies any further weakness or any neurologic deficits. Objective - Vital Signs/Intake and Output Vital Signs (last 24 hours): Temp Pulse Resp BP Pulse Ox 98.5 F 61 18 113/53 L 96 06/17/18 06:00 06/17/18 06:00 06/17/18 06:00 06/17/18 06:00 06/17/18 06:00 Intake and Output: 06/17/18 06/17/18 06:59 18:59 Intake Total 0 Output Total 300 Balance -300 - Medications Medications: Current Medications Albuterol/Ipratropium (Duoneb 3 Mg/0.5 Mg (3 Ml) Ud) 3 ml IH Q2H PRN PRN Reason: Shortness of Breath Albuterol/Ipratropium (Duoneb 3 Mg/0.5 Mg (3 Ml) Ud) 3 ml IH [id number] Amantadine HCl (Amantadine 100 Mg Cap) 100 mg PO DAILY [facility] Aspirin (Aspirin Chewable) 81 mg PEG DAILY [facility] Last Admin: 06/16/18 10:43 Dose: 81 mg Atorvastatin Calcium (Lipitor) 80 mg PEG [facility]IN [facility] Last Admin: 06/16/18 18:00 Dose: 80 mg Carbidopa/Levodopa (Sinemet) 1 tab PEG Q8 [facility] Last Admin: 06/16/18 21:35 Dose: 1 tab Enoxaparin Sodium (Lovenox) 40 mg SC DAILY [facility]; Protocol Last Admin: 06/16/18 10:43 Dose: 40 mg Hydrochlorothiazide (Hydrodiuril) 12.5 mg PEG DAILY [facility] Last Admin: 06/16/18 10:42 Dose: 12.5 mg Sodium Chloride (Sodium Chloride 0.9%) 1,000 mls @ 100 mls/hr IV .Q10H [facility] Last Admin: 06/16/18 21:00 Dose: 100 mls/hr Cefepime HCl (Maxipime 2gm) 2 gm in 100 mls @ 100 mls/hr IVPB Q8H [facility]; Protocol Stop: 06/22/18 07:46 Vancomycin HCl (Vancomycin 1gm) 1 gm in 250 mls @ 167 mls/hr IVPB DAILY [facility]; Protocol Lisinopril (Zestril) 10 mg PEG DAILY [facility] Last Admin: 06/16/18 10:46 Dose: 10 mg Pantoprazole Sodium (Protonix Inj) 40 mg IVP [facility]ILY [facility] Last Admin: 06/16/18 10:43 Dose: 40 mg - Labs Labs: 06/17/18 07:00 06/17/18 07:00 - Constitutional Appears: Non-toxic, Cachectic - Head Exam Head Exam: ATRAUMATIC, NORMOCEPHALIC - Eye Exam Eye Exam: EOMI, Normal appearance - ENT Exam ENT Exam: Mucous Membranes Moist - Neck Exam Additional comments: trach-collar - Respiratory Exam Respiratory Exam: NORMAL BREATHING PATTERN. absent: Accessory Muscle Use - Cardiovascular Exam Cardiovascular Exam: RRR, +S1, +S2 - GI/Abdominal Exam GI & Abdominal Exam: Soft, Normal Bowel Sounds. absent: Organomegaly - Extremities Exam Extremities Exam: Normal Inspection - Neurological Exam Neurological Exam: Alert, Awake, Oriented x3 Neuro motor strength exam: Left Upper Extremity: 5, Right Upper Extremity: 5, Left Lower Extremity: 5, Right Lower Extremity: 5 Additional comments: right pronator drift evident - Psychiatric Exam Psychiatric exam: Normal Affect, Normal Mood - Skin Skin Exam: Dry, Intact, Normal Color, Warm Assessment and Plan - Assessment and Plan (Free Text) Assessment: 62 M with pertinent history of alleged CVA on May 12-2018 who presents s/p trach, peg tube placement after being hospitalized in the [place] (). 1) Parkinson's disease - Sinemet 25/100 IR 07:00, 11:00, 16:00 - Sinemet Controlled release 25/100 07:00 - Amantadine 100 mg daily 2) Stroke - CT of head reports chronic lacunar infarctions in bilateral basal ganglia and chronic infarction in the left occipital. - MRA of head and MRI of brain to rule out any new infarctions - PT/OT/CORN DETASSELER - Nutrition consulted given patient is cachetic and exhibiting some features of failure to thrive Case was reviewed and discussed with attending physician, Dr. Cook <Naseem Cook - Last Filed: 06/18/18 12:04> Objective - Vital Signs/Intake and Output Vital Signs (last 24 hours): Temp Pulse Resp BP Pulse Ox 99 F 65 18 120/69 95 06/18/18 06:00 06/18/18 06:00 06/18/18 06:00 06/18/18 06:00 06/18/18 06:00 Intake and Output: 06/18/18 06/18/18 06:59 18:59 Intake Total 440 Output Total 750 Balance -310 - Medications Medications: Current Medications Albuterol/Ipratropium (Duoneb 3 Mg/0.5 Mg (3 Ml) Ud) 3 ml IH Q2H PRN PRN Reason: Shortness of Breath Albuterol/Ipratropium (Duoneb 3 Mg/0.5 Mg (3 Ml) Ud) 3 ml IH [id number] Last Admin: 06/18/18 07:47 Dose: 3 ml Amantadine HCl (Amantadine 100 Mg Cap) 100 mg PO DAILY [facility] Last Admin: 06/18/18 10:11 Dose: 100 mg Aspirin (Aspirin Chewable) 81 mg PEG [facility]ILY [facility] Last Admin: 06/18/18 10:11 Dose: 81 mg Atorvastatin Calcium (Lipitor) 80 mg PEG [facility]IN [facility] Last Admin: 06/17/18 19:06 Dose: 80 mg Carbidopa/Levodopa (Sinemet) 1 tab PEG 1100,1600 [facility] Last Admin: 06/18/18 10:11 Dose: 1 tab Carbidopa/Levodopa (Sinemet 10/100) 2 tab PO 0700 [facility] Last Admin: 06/18/18 07:30 Dose: Not Given Enoxaparin Sodium (Lovenox) 40 mg SC DAILY [facility]; Protocol Last Admin: 06/18/18 10:10 Dose: 40 mg Hydrochlorothiazide (Hydrodiuril) 12.5 mg PEG DAILY [facility] Last Admin: 06/18/18 10:10 Dose: 12.5 mg Cefepime HCl (Maxipime 2gm) 2 gm in 100 mls @ 100 mls/hr IVPB Q8H [facility]; Protocol Stop: 06/22/18 07:46 Last Admin: 06/18/18 07:00 Dose: 100 mls/hr Lisinopril (Zestril) 10 mg PEG [facility]ILY [facility] Last Admin: 06/18/18 10:11 Dose: 10 mg Pantoprazole Sodium (Protonix Inj) 40 mg IVP [facility]ILY [facility] Last Admin: 06/18/18 10:11 Dose: 40 mg - Labs Labs: 06/18/18 07:00 06/18/18 07:00 Attending/Attestation - Attestation I have personally seen and examined this patient.: Yes I have fully participated in the care of the patient.: Yes I have reviewed all pertinent clinical information, including history, physical exam and plan: Yes Notes (Text): I agree with the assessment and plan. Will continue current management as outlined above.
[2018-06-17] MEDS ORDERED: Vancomycin 1gm in NS 250ml 1 GM/250 ML BAG IVPB SCH (10:00)
--- NOTE | 2018-06-17 10:04 | CT ---
Date of service: 06/17/2018 PROCEDURE: CT Angiography of the neck with contrast HISTORY: stroke COMPARISON: None. TECHNIQUE: Contiguous axial images of the neck were obtained from the level of the skull-base to the superior mediastinum in the arteriographic phase of enhancement. Coronal and sagittal reformats or also generated. IV contrast dose: 100 cc of Omni 350 Radiation dose: Total exam DLP = 409.82 mGy-cm. This CT exam was performed using one or more of the following dose reduction techniques: Automated exposure control, adjustment of the mA and/or kV according to patient size, and/or use of iterative reconstruction technique. FINDINGS: RIGHT CAROTID ARTERIES: Common Carotid Artery: Normal. Carotid Bifurcation: Normal. Internal Carotid Artery:Normal. External Carotid Artery (proximal branches): Normal. LEFT CAROTID ARTERIES: Common Carotid Artery: Normal. Carotid Bifurcation: Calcified plaque with no significant stenosis. Internal Carotid Artery:Normal. External Carotid Artery (proximal branches): Normal. VERTEBRAL ARTERIES: Right Vertebral Artery: Normal. Left Vertebral Artery: Normal. OTHER FINDINGS: Minimal aortic calcification IMPRESSION: No significant stenosis CT Angiography of the Brain. HISTORY: stroke COMPARISON: None available. TECHNIQUE: CT angiography of the intracranial arteries was performed. Coronal and sagittal maximum intensity projection reformated images were generated. Radiation dose: Total exam DLP = 409.82 mGy-cm. This CT exam was performed using one or more of the following dose reduction techniques: Automated exposure control, adjustment of the mA and/or kV according to patient size, and/or use of iterative reconstruction technique. FINDINGS: INTERNAL CEREBRAL ARTERIES: Unremarkable. The skull base, petrous, cavernous and supraclinoid segments are bilaterally widely patent. ANTERIOR CEREBRAL ARTERIES: Unremarkable. A1 and A2 segments are widely patent. Smaller distal branches unremarkable, as visualized. MIDDLE CEREBRAL ARTERIES: Unremarkable. M1 and M2 segments are widely patent. Perisylvian branches grossly symmetric. POSTERIOR CIRCULATION: Basilar Artery: Unremarkable. Distal Vertebral Arteries: Unremarkable. Posterior Cerebral Arteries: Unremarkable. Posterior Inferior Cerebellar Arteries: Unremarkable. ANEURYSM/ VASCULAR MALFORMATIONS: None. OTHER FINDINGS: None. IMPRESSION: Unremarkable CT Angiography of the Brain.
[2018-06-17] MEDS: Enoxaparin 40 mg Syringe SC SCH (10:40)
[2018-06-17] MEDS: Cefepime IV 2 gm in NS 2 GM/100 ML BAG IVPB SCH ×3 (10:40→22:57)
--- NOTE | 2018-06-17 12:02 | CP.PCM.CON ---
History of Present Illness - History of Present Illness History of Present Illness: Pulmonary Consult: 62 M with recent trach/peg admitted with SOB. Mr Mariee suffered from a CVA on 06/11/2018 (as per EMR) in [place] resulting in tracheostomy, PEG-tube placement, suprapubic catheter placement. Patient has a cuffed shyley #8. He was discharged 3 days prior to admission here and the reason for this admission was SOB, subjective fevers and secretions from trach. Denies chills, night sweats, headaches, changes in vision, abdominal pain, nausea, vomiting, diarrhea, or urinary symptoms. Review of Systems: 12-point ROS reviewed and negative, except mentioned in HPI. PMHx: CVA, tracheostomy, hypertension, and Parkinson's disease PSHx: Surgery to correct phimosis, tracheostomy, PEG-tube placement, s uprapubic catheter placement Allergies: NKDA Social Hx: Denies tobacco, alcohol, or drug use. 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 Family Hx: Mother had diabetes. Brother of a heart attack at age 63. Past Patient History - Infectious Disease Hx of Infectious Diseases: None - Past Medical History & Family History Past Medical History?: Yes - Past Social History Smoking Status: Never Smoked - CARDIAC Hx Cardiac Disorders: Yes Hx Hypertension: Yes - PULMONARY Hx Respiratory Disorders: No - NEUROLOGICAL HX Cerebrovascular Accident: Yes (1 month ago) - HEENT Hx HEENT Problems: No - RENAL Hx Chronic Kidney Disease: No - ENDOCRINE/METABOLIC Hx Endocrine Disorders: No - HEMATOLOGICAL/ONCOLOGICAL Hx Blood Disorders: No - INTEGUMENTARY Hx Dermatological Problems: No - MUSCULOSKELETAL/RHEUMATOLOGICAL Hx Musculoskeletal Disorders: No - GASTROINTESTINAL Other/Comment: + gtube - GENITOURINARY/GYNECOLOGICAL Hx Genitourinary Disorders: Yes Other/Comment: HX: PHIMOSIS. +suprapubic catheter - PSYCHIATRIC Hx Psychophysiologic Disorder: No Hx Substance Use: No - SURGICAL HISTORY Other/Comment: tracheostomy. gt tube. suprapubic catheter - ANESTHESIA Hx Anesthesia: Yes Hx Anesthesia Reactions: No Hx Malignant Hyperthermia: No Meds Allergies/Adverse Reactions: Allergies Allergy/AdvReac Type Severity Reaction Status Date / Time milk Allergy Intermediate NAUSEA Verified 06/15/18 20:19 - Medications Medications: Current Medications Albuterol/Ipratropium (Duoneb 3 Mg/0.5 Mg (3 Ml) Ud) 3 ml IH Q2H PRN PRN Reason: Shortness of Breath Albuterol/Ipratropium (Duoneb 3 Mg/0.5 Mg (3 Ml) Ud) 3 ml IH [id number] [facility] Amantadine HCl (Amantadine 100 Mg Cap) 100 mg PO DAILY [facility] Last Admin: 06/17/18 10:40 Dose: 100 mg Aspirin (Aspirin Chewable) 81 mg PEG DAILY [facility] Last Admin: 06/17/18 10:41 Dose: 81 mg Atorvastatin Calcium (Lipitor) 80 mg PEG DIN [facility] Last Admin: 06/16/18 18:00 Dose: 80 mg Carbidopa/Levodopa (Sinemet) 1 tab PEG Q8 [facility] Last Admin: 06/16/18 21:35 Dose: 1 tab Enoxaparin Sodium (Lovenox) 40 mg SC DAILY [facility]; Protocol Last Admin: 06/17/18 10:40 Dose: 40 mg Hydrochlorothiazide (Hydrodiuril) 12.5 mg PEG DAILY [facility] Last Admin: 06/17/18 10:41 Dose: 12.5 mg Sodium Chloride (Sodium Chloride 0.9%) 1,000 mls @ 100 mls/hr IV .Q10H [facility] Last Admin: 06/16/18 21:00 Dose: 100 mls/hr Cefepime HCl (Maxipime 2gm) 2 gm in 100 mls @ 100 mls/hr IVPB Q8H [facility]; Protocol Stop: 06/22/18 07:46 Last Admin: 06/17/18 10:40 Dose: 100 mls/hr Vancomycin HCl (Vancomycin 1gm) 1 gm in 250 mls @ 167 mls/hr IVPB DAILY [facility]; Protocol Last Admin: 06/17/18 10:40 Dose: 167 mls/hr Lisinopril (Zestril) 10 mg PEG DAILY [facility] Last Admin: 06/17/18 10:41 Dose: 10 mg Pantoprazole Sodium (Protonix Inj) 40 mg IVP DAILY [facility] Last Admin: 06/17/18 10:40 Dose: 40 mg Physical Exam - Constitutional Appears: Well, Non-toxic, No Acute Distress - Head Exam Head Exam: ATRAUMATIC, NORMAL INSPECTION, NORMOCEPHALIC - Respiratory Exam Respiratory Exam: Clear to Auscultation Bilateral, NORMAL BREATHING PATTERN. absent: Accessory Muscle Use, Chest Wall Tenderness, Respiratory Distress - Cardiovascular Exam Cardiovascular Exam: REGULAR RHYTHM - GI/Abdominal Exam GI & Abdominal Exam: Normal Bowel Sounds, Soft. absent: Tenderness Results - Vital Signs Recent Vital Signs: Last Vital Signs Temp 98.5 F 06/17/18 06:00 Pulse 61 06/17/18 06:00 Resp 18 06/17/18 06:00 BP 113/53 L 06/17/18 06:00 Pulse Ox 96 06/17/18 06:00 - Labs Result Diagrams: 06/17/18 07:00 06/17/18 07:00 Labs: Laboratory Results - last 24 hr 06/16/18 06/16/18 06/16/18 07:30 07:30 08:56 WBC RBC Hgb Hct MCV MCH MCHC RDW Plt Count MPV Neut % (Auto) Lymph % (Auto) Smyth % (Auto) Eos % (Auto) Baso % (Auto) Lymph # (Auto) Smyth # (Auto) Eos # (Auto) Baso # (Auto) Absolute Neuts (auto) pCO2 pO2 HCO3 ABG pH ABG Total CO2 ABG O2 Saturation ABG Base Excess ABG Potassium Sodium Chloride Glucose Lactate FiO2 Potassium Carbon Dioxide Anion Gap BUN Creatinine Est GFR ( Amer) Est GFR (Non-Af Amer) Random Glucose Hemoglobin A1c 5.0 Calcium Total Bilirubin AST ALT Alkaline Phosphatase Total Protein Albumin Globulin Albumin/Globulin Ratio Procalcitonin 0.13 L Arterial Blood Potassium Urine Color Urine Appearance Urine pH Ur Specific [place] Urine Protein Urine Glucose (UA) Urine Ketones Urine Blood Urine Nitrate Urine Bilirubin Urine Urobilinogen Ur Leukocyte Esterase Urine RBC Urine WBC Ur Epithelial Cells Urine Bacteria HIV 1&2 Ag/Ab, 4th Gen Nonreactive 06/16/18 06/17/18 06/17/18 16:19 00:18 07:00 WBC 6.9 D RBC 3.81 Hgb 10.9 L Hct 34.7 L MCV 91.1 MCH 28.6 MCHC 31.4 RDW 13.5 Plt Count 273 MPV 10.5 Neut % (Auto) 74.0 H Lymph % (Auto) 19.1 L Smyth % (Auto) 5.5 Eos % (Auto) 1.0 L Baso % (Auto) 0.4 Lymph # (Auto) 1.3 Smyth # (Auto) 0.4 Eos # (Auto) 0.1 Baso # (Auto) 0.03 Absolute Neuts (auto) 5.08 pCO2 35 pO2 69.0 L HCO3 24.9 ABG pH 7.46 H ABG Total CO2 26.0 ABG O2 Saturation 97.0 ABG Base Excess 1.4 ABG Potassium 3.5 L Sodium 140.0 Chloride 107.0 Glucose 74 L Lactate 0.7 FiO2 28.0 Potassium Carbon Dioxide Anion Gap BUN Creatinine Est GFR ( Amer) Est GFR (Non-Af Amer) Random Glucose Hemoglobin A1c Calcium Total Bilirubin AST ALT Alkaline Phosphatase Total Protein Albumin Globulin Albumin/Globulin Ratio Procalcitonin Arterial Blood Potassium 3.5 L Urine Color Yellow Urine Appearance Cloudy Urine pH 6.0 Ur Specific [place] 1.025 Urine Protein Trace H Urine Glucose (UA) Negative Urine Ketones >=80 Urine Blood Small H Urine Nitrate Positive H Urine Bilirubin Negative Urine Urobilinogen 0.2 Ur Leukocyte Esterase Moderate H Urine RBC 1 - 3 H Urine WBC 20 - 25 H Ur Epithelial Cells 0 - 2 Urine Bacteria Small HIV 1&2 Ag/Ab, 4th Gen 06/17/18 07:00 WBC RBC Hgb Hct MCV MCH MCHC RDW Plt Count MPV Neut % (Auto) Lymph % (Auto) Smyth % (Auto) Eos % (Auto) Baso % (Auto) Lymph # (Auto) Smyth # (Auto) Eos # (Auto) Baso # (Auto) Absolute Neuts (auto) pCO2 pO2 HCO3 ABG pH ABG Total CO2 ABG O2 Saturation ABG Base Excess ABG Potassium Sodium 142 Chloride 106 Glucose Lactate FiO2 Potassium 3.6 Carbon Dioxide 26 Anion Gap 13 BUN 21 Creatinine 0.6 L Est GFR ( Amer) > 60 Est GFR (Non-Af Amer) > 60 Random Glucose 63 L Hemoglobin A1c Calcium 8.5 Total Bilirubin 0.5 AST 25 ALT 8 Alkaline Phosphatase 89 Total Protein 6.5 Albumin 3.0 Globulin 3.5 Albumin/Globulin Ratio 0.9 L Procalcitonin Arterial Blood Potassium Urine Color Urine Appearance Urine pH Ur Specific [place] Urine Protein Urine Glucose (UA) Urine Ketones Urine Blood Urine Nitrate Urine Bilirubin Urine Urobilinogen Ur Leukocyte Esterase Urine RBC Urine WBC Ur Epithelial Cells Urine Bacteria HIV 1&2 Ag/Ab, 4th Gen Assessment & Plan - Assessment and Plan (Free Text) Assessment: 62M who suffered from CVA (CT of head reports chronic lacunar infarctions in bilateral basal ganglia and chronic infarction in the left occipital) resulting in trach/peg admitted with sob and secretions. Neurology on board putting together neurovascular history and future care. In regards to his SOB, likely seconday to his new trach. I do not see a PNA on CXR. He has been afebrile, WBC only 12 accompanied by a low procal. If anyt lucio, he could have a tracheitis. Sputum cultures are pending and if negative, would de-escalate abx to complete a 5 day course of levaquin. If positive, treat accordingly. ABG was reviewed, slight hypoxia with PaO2 of 69% on fio2 28%. Cont to wean oxygen as tolerated. No indication for routine serial ABG or CXR Trach care with suctioning and albuterol as needed Eventually, as an outpatient, patient will need follow up for trach and eventually downsizing the trach as well as changing to a cuffless trach. Thank you for the consultation Noel Mora MD Pulmonary Critical Care and Sleep Medicine
[2018-06-17] MEDS: Albuterol-Ipratrop 3 mg / 0.5 (3 ml) UD IH SCH ×2 (13:01→19:59)
--- NOTE | 2018-06-17 14:29 | CP.PCM.PN ---
<Yared Combs - Last Filed: 06/17/18 14:25> Subjective - Date & Time of Evaluation Date of Evaluation: 06/17/18 Time of Evaluation: 08:00 - Subjective Subjective: Yared Combs PGY1 Medicine Progress Note for Dr. Prado Patient seen at bedside this morning. Vital signs are stable. Patient has trach, PEG tube, and suprapubic catheter in place. Family member at bedside. He follows commands very well. He does not endorse any sob, cp, n/v/d at this time. No adverse overnight events. A full 12 point ROS was conducted and unremarkable except as stated above. Objective - Vital Signs/Intake and Output Vital Signs (last 24 hours): Temp Pulse Resp BP Pulse Ox 98.5 F 63 18 113/53 L 96 06/17/18 06:00 06/17/18 13:02 06/17/18 06:00 06/17/18 06:00 06/17/18 06:00 Intake and Output: 06/17/18 06/17/18 06:59 18:59 Intake Total 0 Output Total 300 Balance -300 - Medications Medications: Current Medications Albuterol/Ipratropium (Duoneb 3 Mg/0.5 Mg (3 Ml) Ud) 3 ml IH Q2H PRN PRN Reason: Shortness of Breath Albuterol/Ipratropium (Duoneb 3 Mg/0.5 Mg (3 Ml) Ud) 3 ml IH [id number] [facility] Last Admin: 06/17/18 13:01 Dose: 3 ml Amantadine HCl (Amantadine 100 Mg Cap) 100 mg PO DAILY [facility] Last Admin: 06/17/18 10:40 Dose: 100 mg Aspirin (Aspirin Chewable) 81 mg PEG DAILY [facility] Last Admin: 06/17/18 10:41 Dose: 81 mg Atorvastatin Calcium (Lipitor) 80 mg PEG DIN [facility] Last Admin: 06/16/18 18:00 Dose: 80 mg Carbidopa/Levodopa (Sinemet) 1 tab PEG Q8 [facility] Last Admin: 06/17/18 14:10 Dose: 1 tab Enoxaparin Sodium (Lovenox) 40 mg SC DAILY [facility]; Protocol Last Admin: 06/17/18 10:40 Dose: 40 mg Hydrochlorothiazide (Hydrodiuril) 12.5 mg PEG DAILY [facility] Last Admin: 06/17/18 10:41 Dose: 12.5 mg Cefepime HCl (Maxipime 2gm) 2 gm in 100 mls @ 100 mls/hr IVPB Q8H [facility]; Protocol Stop: 06/22/18 07:46 Last Admin: 06/17/18 10:40 Dose: 100 mls/hr Lisinopril (Zestril) 10 mg PEG DAILY [facility] Last Admin: 06/17/18 10:41 Dose: 10 mg Pantoprazole Sodium (Protonix Inj) 40 mg IVP DAILY [facility] Last Admin: 06/17/18 10:40 Dose: 40 mg - Labs Labs: 06/17/18 07:00 06/17/18 07:00 - Constitutional Appears: Non-toxic - Head Exam Head Exam: ATRAUMATIC, NORMAL INSPECTION, NORMOCEPHALIC Additional comments: Tracheostomy tube in place - Eye Exam Eye Exam: EOMI, Normal appearance, PERRL Pupil Exam: NORMAL ACCOMODATION, PERRL - ENT Exam ENT Exam: Mucous Membranes Moist, Normal Exam - Neck Exam Neck exam: Positive for: Normal Inspection - Respiratory Exam Respiratory Exam: Clear to Auscultation Bilateral, NORMAL BREATHING PATTERN - Cardiovascular Exam Cardiovascular Exam: REGULAR RHYTHM - GI/Abdominal Exam GI & Abdominal Exam: Normal Bowel Sounds, Soft. PEG Tube in place. Supra-pubic catheter in place. absent: Tenderness - Extremities Exam Extremities exam: Positive for: normal inspection. 5/5 motor strength in all extremities. - Back Exam Back exam: NORMAL INSPECTION - Neurological Exam Neurological exam: Awake, Alert, CN II-XII Intact, Reflexes Normal. Moves all extremities without difficulty. Follows commands. No neurological deficits. Resting tremor with masked facies. - Psychiatric Exam Psychiatric exam: Normal Affect, Normal Mood - Skin Skin Exam: Dry, Intact, Normal Color, Warm Assessment and Plan - Assessment and Plan (Free Text) Assessment: 62 M with PMHx HTN, Parkinson's Disease, Recent CVA complicated by tracheostomy tube, PEG tube, Suprapubic catheter (Hospitalized 1 month ago in [facility] [place]) who presented to [facility] for shortness of breath with increased secretions. Patient has no focal neurological deficits. Neurology, Pulmonology, and ID is on consult. Plan: SOB and Secretions likely 2/2 Recent Tracheostomy Tube Placement - c/w empiric coverage with cefepime as per ID recs - f/u pancx - ABG shows very mild hypoxia - c/w tracheostomy care with suctioning and albuterol as needed - CXR: no evidence of PNA - afebrile and no leukocytosis - elevate head of bed - ID on consult. Recs appreciated. - Pulmonology on consult for tracheostomy care. Recs appreciated. Chronic CVA - r/o new infarcts - f/u MRA of head and MRI of brain to rule out any new infarctions - CT of head: chronic lacunar infarctions in bilateral basal ganglia and chronic infarction in the left occipital. - CT Head/Neck: unremarkable - Carotid US: negative - Echo: EF 61%. Mod-severe aortic regurgitation. Bicuspid aortic valve. 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 Pending pancx results. Continue with trach care. PT recs acute rehab. Case was discussed and reviewed with Attending Physician, Dr. Prado <Maryam Prado - Last Filed: 06/19/18 11:48> Objective - Vital Signs/Intake and Output Vital Signs (last 24 hours): Temp Pulse Resp BP Pulse Ox 98.2 F 65 18 104/66 99 06/19/18 06:00 06/19/18 09:09 06/19/18 06:00 06/19/18 09:09 06/19/18 06:00 Intake and Output: 06/19/18 06/19/18 06:59 18:59 Intake Total 0 Output Total 500 Balance -500 - Medications Medications: Current Medications Acetylcysteine (Acetylcysteine 20%) 4 ml IH ONCE ONE Stop: 06/19/18 20:48 Albuterol/Ipratropium (Duoneb 3 Mg/0.5 Mg (3 Ml) Ud) 3 ml IH Q2H PRN PRN Reason: Shortness of Breath Albuterol/Ipratropium (Duoneb 3 Mg/0.5 Mg (3 Ml) Ud) 3 ml IH [id number] [facility] Last Admin: 06/19/18 07:39 Dose: 3 ml Amantadine HCl (Amantadine 100 Mg Cap) 100 mg PO DAILY [facility] Last Admin: 06/19/18 09:09 Dose: 100 mg Aspirin (Aspirin Chewable) 81 mg PEG DAILY [facility] Last Admin: 06/19/18 09:10 Dose: 81 mg Atorvastatin Calcium (Lipitor) 80 mg PEG DIN [facility] Last Admin: 06/18/18 17:52 Dose: 80 mg Carbidopa/Levodopa (Sinemet) 1 tab PEG 1100,1600 [facility] Last Admin: 06/18/18 17:52 Dose: 1 tab Carbidopa/Levodopa (Sinemet 10/100) 2 tab PO 0700 [facility] Last Admin: 06/19/18 09:08 Dose: 2 tab Clopidogrel Bisulfate (Plavix) 75 mg PO DAILY [facility] Last Admin: 06/19/18 09:09 Dose: 75 mg Enoxaparin Sodium (Lovenox) 40 mg SC DAILY [facility]; Protocol Last Admin: 06/19/18 09:10 Dose: 40 mg Hydrochlorothiazide (Hydrodiuril) 12.5 mg PEG DAILY [facility] Last Admin: 06/19/18 09:08 Dose: 12.5 mg Cefepime HCl (Maxipime 2gm) 2 gm in 100 mls @ 100 mls/hr IVPB Q8H [facility]; Protocol Stop: 06/22/18 07:46 Last Admin: 06/19/18 09:10 Dose: 100 mls/hr Lisinopril (Zestril) 10 mg PEG DAILY [facility] Last Admin: 06/19/18 09:09 Dose: 10 mg Pantoprazole Sodium (Protonix Inj) 40 mg IVP DAILY [facility] Last Admin: 06/19/18 09:07 Dose: 40 mg - Labs Labs: 06/19/18 08:30 06/19/18 08:30 Attending/Attestation - Attestation I have personally seen and examined this patient.: Yes I have fully participated in the care of the patient.: Yes I have reviewed all pertinent clinical information, including history, physical exam and plan: Yes Notes (Text): 06/19/18 11:48 Medical record note made by the resident after discussion with my direction and input after the patient was personally seen and examined by me. I have reviewed the chart and agree that the record accurately reflects by personal performance of the history, physical exam, data review, and medical decision-making, in the course for the patient. I have also personally directed the plan of care.
--- NOTE | 2018-06-17 15:05 | PN ---
DATE: 06/17/2018 LOCATION: The patient is seen in room 571, bed 2 today. SUBJECTIVE: No change in his traits and he is comfortable here. No fevers. No chills. PHYSICAL EXAMINATION VITAL SIGNS: Temperature is 98, blood pressure 113/53, respiratory rate of 18, and heart rate of 63. HEENT: Unremarkable. NECK: Supple. LUNGS: Decreased breath sounds. HEART: Normal S1 and S2. ABDOMEN: Soft and nontender. LABORATORY DATA: Reveals the patient's white count is down to 6.9 and hemoglobin of 10. Chemistries are noted. Urine analysis is noted. Urology is reviewed and the patient had a CAT scan of the head and neck, CT angio which was unremarkable and CAT scan of the head, chronic lacunar infracts and blood cultures are negative. ASSESSMENT AND PLAN: This is a 62-year-old male, in [facility] [place] had a cerebrovascular accident there and he has a history of Parkinson and hypertension. He was in the hospital in [facility] for a month. He was trached and percutaneous endoscopic gastrostomy and has a suprapubic catheter, currently on Maxipime waiting huizar culture results. Thus far, the blood cultures are negative after 24 hours. Urine cultures are pending. We will most likely discontinue the antibiotics. We will discontinue Vancomycin today and continue cefepime pending the urine culture results and final blood culture results. The patient's chest x-ray is reported to be negative. Aren Webb MD
[2018-06-17] MEDS: Sodium Chloride 0.9% 1,000 ML IV SCH (22:25)
[2018-06-18] MEDS: Albuterol-Ipratrop 3 mg / 0.5 (3 ml) UD IH SCH ×4 (01:46→20:46)
[2018-06-18] MEDS ORDERED: Carbidopa/Levodopa 25/100 CR PO SCH (07:00)
[2018-06-18] MEDS: Cefepime IV 2 gm in NS 2 GM/100 ML BAG IVPB SCH ×3 (07:00→22:32)
[2018-06-18 07:24] LABS: EOS # 0.1 (0.0-0.7); EOS % 1.2 % (1.5-5.0); HEMOGLOBIN 11.2 g/dL (14.0-18.0); LYMPH # 1.1 (1.2-3.4); LYMPH % 18.4 % (22.0-35.0); MEAN CELL VOLUME 89.7 fl (80.0-105.0); MEAN CORPUSCULAR HEMOGLOBIN 28.9 pg (25.0-35.0); MEAN CORPUSCULAR HGB CONC 32.3 g/dl (31.0-37.0); MEAN PLATELET VOLUME 10.6 fl (7.0-11.0); MONO # 0.4 (0.1-0.6); MONO % 5.9 % (1.0-6.0); RBC 3.87 10^6/uL (3.5-6.1); RED CELL DISTRIBUTION WIDTH 13.4 % (11.5-14.5); WHITE BLOOD COUNT 5.9 10^3/uL (4.5-11.0)
[2018-06-18 07:34] LABS: ALB/GLOB RATIO 0.8 (1.1-1.8); ALT/SGPT 19 U/L (7-56); AST/SGOT 24 U/L (17-59); BLOOD UREA NITROGEN 22 mg/dL (7-21); CALCIUM 8.2 mg/dL (8.4-10.5); GFR NON-AFRICAN AMERICAN > 60
--- NOTE | 2018-06-18 09:07 | CP.PCM.PN ---
<Jeremy Mackenzie - Last Filed: 06/18/18 15:18> Subjective - Date & Time of Evaluation Date of Evaluation: 06/18/18 Time of Evaluation: 08:00 - Subjective Subjective: Jeremy Mackenzie DO, PGY-2: Neurology Progress Note for Dr. Cook Patient was seen and examined at bedside. Daughter at bedside patient was coughing throughout the night and he required multiple suctions. He did not sleep well either. Otherwise, no other complaints elicited. Objective - Vital Signs/Intake and Output Vital Signs (last 24 hours): Temp Pulse Resp BP Pulse Ox 99 F 65 18 120/69 95 06/18/18 06:00 06/18/18 06:00 06/18/18 06:00 06/18/18 06:00 06/18/18 06:00 Intake and Output: 06/18/18 06/18/18 06:59 18:59 Intake Total 440 Output Total 750 Balance -310 - Medications Medications: Current Medications Albuterol/Ipratropium (Duoneb 3 Mg/0.5 Mg (3 Ml) Ud) 3 ml IH Q2H PRN PRN Reason: Shortness of Breath Albuterol/Ipratropium (Duoneb 3 Mg/0.5 Mg (3 Ml) Ud) 3 ml IH [id number] [facility] Last Admin: 06/18/18 07:47 Dose: 3 ml Amantadine HCl (Amantadine 100 Mg Cap) 100 mg PO DAILY [facility] Last Admin: 06/17/18 10:40 Dose: 100 mg Aspirin (Aspirin Chewable) 81 mg PEG DAILY [facility] Last Admin: 06/17/18 10:41 Dose: 81 mg Atorvastatin Calcium (Lipitor) 80 mg PEG DIN [facility] Last Admin: 06/17/18 19:06 Dose: 80 mg Carbidopa/Levodopa (Sinemet) 1 tab PEG 1100,1600 [facility] Last Admin: 06/17/18 22:25 Dose: Not Given Carbidopa/Levodopa (Sinemet 10/100) 2 tab PO 0700 [facility] Enoxaparin Sodium (Lovenox) 40 mg SC DAILY [facility]; Protocol Last Admin: 06/17/18 10:40 Dose: 40 mg Hydrochlorothiazide (Hydrodiuril) 12.5 mg PEG DAILY [facility] Last Admin: 06/17/18 10:41 Dose: 12.5 mg Cefepime HCl (Maxipime 2gm) 2 gm in 100 mls @ 100 mls/hr IVPB Q8H [facility]; Protocol Stop: 06/22/18 07:46 Last Admin: 06/18/18 07:00 Dose: 100 mls/hr Lisinopril (Zestril) 10 mg PEG DAILY [facility] Last Admin: 06/17/18 10:41 Dose: 10 mg Pantoprazole Sodium (Protonix Inj) 40 mg IVP DAILY [facility] Last Admin: 06/17/18 10:40 Dose: 40 mg - Labs Labs: 06/18/18 07:00 06/18/18 07:00 - Constitutional Appears: Non-toxic, Cachectic - Head Exam Head Exam: ATRAUMATIC, NORMOCEPHALIC - Eye Exam Eye Exam: EOMI, Normal appearance, PERRL - ENT Exam ENT Exam: Mucous Membranes Moist - Neck Exam Neck Exam: Normal Inspection - Respiratory Exam Respiratory Exam: NORMAL BREATHING PATTERN. absent: Accessory Muscle Use - Cardiovascular Exam Cardiovascular Exam: RRR, +S1, +S2 - Neurological Exam Additional comments: right pronator drift, no visual field deficits - Psychiatric Exam Psychiatric exam: Normal Affect, Normal Mood - Skin Skin Exam: Dry, Intact, Normal Color, Warm Assessment and Plan - Assessment and Plan (Free Text) Assessment: 62 M with pertinent history of CVA on May 12-2018 who presents s/p trach, peg tube, and suprapubic catheter placement after being hospitalized in the [place] (). 1) Parkinson's disease - Sinemet 25/100 IR at 11:00 and 16:00 - Sinemet IR 10/100 x 2 at 07:00 - Amantadine 100 mg daily 2) Acute Stroke - CT of head reports chronic lacunar infarctions in bilateral basal ganglia and chronic infarction in the left occipital. 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 - MRA of neck ordered stat - loading dose of Plavix given and 81 mg of aspirin - Continue aspirin 81 mg daily - Continue plavix 75 mg daily - MRI of brain reports there is a small 7 mm acute infarct along the anterior surface of the right cerebellar hemisphere.Chronic infarcts are seen in the joya and right side of the medulla. There is also a chronic infarct in the left occipital lobe. 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 Cook <Naseem Cook - Last Filed: 06/28/18 10:28> Objective - Vital Signs/Intake and Output Vital Signs (last 24 hours): Temp Pulse Resp BP Pulse Ox 98.5 F 81 20 115/49 L 95 06/27/18 22:00 06/27/18 22:00 06/27/18 22:00 06/27/18 22:00 06/27/18 22:00 Intake and Output: 06/28/18 06/28/18 06:59 18:59 Intake Total 600 Output Total 300 Balance 300 - Medications Medications: Current Medications Albuterol/Ipratropium (Duoneb 3 Mg/0.5 Mg (3 Ml) Ud) 3 ml IH Q2H PRN PRN Reason: Shortness of Breath Last Admin: 06/28/18 07:57 Dose: 3 ml Albuterol/Ipratropium (Duoneb 3 Mg/0.5 Mg (3 Ml) Ud) 3 ml IH [id number] [facility] Last Admin: 06/28/18 02:10 Dose: 3 ml Aspirin (Aspirin Chewable) 81 mg PEG DAILY [facility] Last Admin: 06/27/18 09:02 Dose: 81 mg Atorvastatin Calcium (Lipitor) 80 mg PEG DIN [facility] Last Admin: 06/27/18 18:16 Dose: 80 mg Carbidopa/Levodopa (Sinemet) 1 tab PEG 1100,1600 [facility] Last Admin: 06/27/18 18:17 Dose: 1 tab Carbidopa/Levodopa (Sinemet 10/100) 2 tab PEG 0700 [facility] Last Admin: 06/28/18 06:42 Dose: 2 tab Clopidogrel Bisulfate (Plavix) 75 mg PEG DAILY [facility] Last Admin: 06/27/18 09:02 Dose: 75 mg Hydrochlorothiazide (Hydrodiuril) 12.5 mg PEG DAILY [facility] Last Admin: 06/23/18 10:15 Dose: 12.5 mg Lisinopril (Zestril) 10 mg PEG DAILY [facility] Last Admin: 06/27/18 09:02 Dose: 10 mg Pantoprazole Sodium (Protonix Inj) 40 mg IVP DAILY [facility] Last Admin: 06/27/18 09:01 Dose: 40 mg - Labs Labs: 06/28/18 07:00 06/28/18 07:00 PT 14.2 SECONDS (9.4-12.5) H 06/26/18 12:20 INR 1.26 06/26/18 12:20 APTT 33.8 Seconds (26.9-38.3) 06/26/18 12:20 Attending/Attestation - Attestation I have personally seen and examined this patient.: Yes I have fully participated in the care of the patient.: Yes I have reviewed all pertinent clinical information, including history, physical exam and plan: Yes Notes (Text): I agree with the assessment and plan. Will continue work-up and management as outlined above.
--- NOTE | 2018-06-18 09:48 | MRI ---
Date of service: 06/18/2018 PROCEDURE: MRI BRAIN WITHOUT CONTRAST HISTORY: r/o acute acute stroke COMPARISON: None available. TECHNIQUE: Multiplanar, multisequence MR images of the brain were obtained without intravenous contrast enhancement. FINDINGS: HEMORRHAGE: None DWI: There is a small 7 mm acute infarct along the anterior surface of the right cerebellar hemisphere. BRAIN PARENCHYMA: No mass effect or edema. Chronic infarcts are seen in the joya and right side of the medulla. There is also a chronic infarct in the left occipital lobe. VENTRICLES: Unremarkable. No hydrocephalus. CRANIUM: Unremarkable. ORBITS: Grossly unremarkable. PARANASAL SINUSES/MASTOIDS: Clear VASCULAR SYSTEM: Skull base flow voids intact. OTHER FINDINGS: None. IMPRESSION: There is a small 7 mm acute infarct along the anterior surface of the right cerebellar hemisphere. Chronic infarcts are seen in the joya and right side of the medulla. There is also a chronic infarct in the left occipital lobe.
--- NOTE | 2018-06-18 10:01 | MRI ---
Date of service: 06/18/2018 PROCEDURE: Magnetic Resonance Angiography Brain HISTORY: evaluate COMPARISON: None available. TECHNIQUE: 3D time of flight MR angiography of the intracranial arteries was performed. Rotating maximum intensity projection images were generated. FINDINGS: INTERNAL CAROTID ARTERIES: Unremarkable. The skull base, petrous, cavernous and supraclinoid segments are bilaterally widely patient. ANTERIOR CEREBRAL ARTERIES: Unremarkable. A1 and A2 segments are widely patent. Smaller distal branches unremarkable, as visualized. MIDDLE CEREBRAL ARTERIES: Unremarkable. M1 and M2 segments are widely patent. Perisylvian branches grossly symmetric. 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 Distal Vertebral Arteries: Unremarkable. Posterior Cerebral Arteries: Unremarkable. Posterior Inferior Cerebellar Arteries: Unremarkable. ANEURYSM/ VASCULAR MALFORMATIONS: None. OTHER FINDINGS: None. 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
[2018-06-18] MEDS: Enoxaparin 40 mg Syringe SC SCH (10:10)
--- NOTE | 2018-06-18 13:49 | CP.PCM.PN ---
<Yared Combs - Last Filed: 06/18/18 13:51> Subjective - Date & Time of Evaluation Date of Evaluation: 06/18/18 Time of Evaluation: 08:00 - Subjective Subjective: Yared Combs PGY1 Medicine Progress Note for Dr. Prado Patient seen at bedside this morning. Vital signs are stable. Patient has trach, PEG tube, and suprapubic catheter in place. Family members at bedside. He follows commands very well. He does not endorse any sob, cp, n/v/d at this time. No adverse overnight events. Patient went for MRA Head/Brain after time of inte rview. A full 12 point ROS was conducted and unremarkable except as stated above. Objective - Vital Signs/Intake and Output Vital Signs (last 24 hours): Temp Pulse Resp BP Pulse Ox 99 F 65 18 120/69 95 06/18/18 06:00 06/18/18 06:00 06/18/18 06:00 06/18/18 06:00 06/18/18 06:00 Intake and Output: 06/18/18 06/18/18 06:59 18:59 Intake Total 440 Output Total 750 300 Balance -310 -300 - Medications Medications: Current Medications Albuterol/Ipratropium (Duoneb 3 Mg/0.5 Mg (3 Ml) Ud) 3 ml IH Q2H PRN PRN Reason: Shortness of Breath Albuterol/Ipratropium (Duoneb 3 Mg/0.5 Mg (3 Ml) Ud) 3 ml IH [id number] [facility] Last Admin: 06/18/18 13:06 Dose: 3 ml Amantadine HCl (Amantadine 100 Mg Cap) 100 mg PO DAILY [facility] Last Admin: 06/18/18 10:11 Dose: 100 mg Aspirin (Aspirin Chewable) 81 mg PEG DAILY [facility] Last Admin: 06/18/18 10:11 Dose: 81 mg Atorvastatin Calcium (Lipitor) 80 mg PEG DIN [facility] Last Admin: 06/17/18 19:06 Dose: 80 mg Carbidopa/Levodopa (Sinemet) 1 tab PEG 1100,1600 [facility] Last Admin: 06/18/18 10:11 Dose: 1 tab Carbidopa/Levodopa (Sinemet 10/100) 2 tab PO 0700 [facility] Last Admin: 06/18/18 07:30 Dose: Not Given Enoxaparin Sodium (Lovenox) 40 mg SC DAILY [facility]; Protocol Last Admin: 06/18/18 10:10 Dose: 40 mg Hydrochlorothiazide (Hydrodiuril) 12.5 mg PEG DAILY [facility] Last Admin: 06/18/18 10:10 Dose: 12.5 mg Cefepime HCl (Maxipime 2gm) 2 gm in 100 mls @ 100 mls/hr IVPB Q8H [facility]; Protocol Stop: 06/22/18 07:46 Last Admin: 06/18/18 07:00 Dose: 100 mls/hr Lisinopril (Zestril) 10 mg PEG DAILY [facility] Last Admin: 06/18/18 10:11 Dose: 10 mg Pantoprazole Sodium (Protonix Inj) 40 mg IVP DAILY [facility] Last Admin: 06/18/18 10:11 Dose: 40 mg - Labs Labs: 06/18/18 07:00 06/18/18 07:00 - Constitutional Appears: Non-toxic - Head Exam Head Exam: ATRAUMATIC, NORMAL INSPECTION, NORMOCEPHALIC Additional comments: Tracheostomy tube in place - Eye Exam Eye Exam: EOMI, Normal appearance, PERRL Pupil Exam: NORMAL ACCOMODATION, PERRL - ENT Exam ENT Exam: Mucous Membranes Moist, Normal Exam - Neck Exam Neck exam: Positive for: Normal Inspection - Respiratory Exam Respiratory Exam: Clear to Auscultation Bilateral, NORMAL BREATHING PATTERN - Cardiovascular Exam Cardiovascular Exam: REGULAR RHYTHM - GI/Abdominal Exam GI & Abdominal Exam: Normal Bowel Sounds, Soft. PEG Tube in place. Suprapubic catheter in place. absent: Tenderness - Extremities Exam Extremities exam: Positive for: normal inspection. 5/5 motor strength in all extremities. - Back Exam Back exam: NORMAL INSPECTION - Neurological Exam Neurological exam: Awake, Alert, CN II-XII Intact, Reflexes Normal. Moves all extremities without difficulty. Follows commands. No neurological deficits. Resting tremor with masked facies. - Psychiatric Exam Psychiatric exam: Normal Affect, Normal Mood - Skin Skin Exam: Dry, Intact, Normal Color, Warm Assessment and Plan - Assessment and Plan (Free Text) Assessment: 62 M with PMHx HTN, Parkinson's Disease, Recent CVA complicated by tracheostomy tube, PEG tube, Suprapubic catheter (Hospitalized 1 month ago in [facility] [place]) who presented to [facility] for mild shortness of breath with increased secretions due to recent tracheostomy tube placement. Patient has no focal neurological deficits. Neurology, Pulmonology, and ID are on consult. Plan: Mild SOB and Secretions 2/2 Recent Tracheostomy Tube Placement - c/w cefepime for empiric coverage as per ID recs - Trach/sputum cultures pending - MRSA negative - BCx: negative x2 (prelim) after 48 hours - UCx contaminated - c/w tracheostomy care with suctioning and albuterol as needed - CXR: no evidence of PNA - afebrile and no leukocytosis - elevate head of bed - ID on consult. Recs appreciated. - Pulmonology on consult for tracheostomy care. Recs appreciated. Chronic CVA with Small Acute Infarct - MRI Brain: small 7mm acute infarct at R-cerebellar hemisphere. Chronic infarcts in joya and R-medulla. Chronic infarct in L-occipital lobe. - MRA Head: chronic occlusions - CT of head: chronic lacunar infarctions in bilateral basal ganglia and chronic infarction in the left occipital. - CT Head/Neck: unremarkable - c/w ASA and statin - Carotid US: negative - Echo: EF 61%. Mod-severe aortic regurgitation. Bicuspid aortic valve. - PT recommends acute rehab. However, patient has no insurance at this time. 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 Further recs from neuro in regards to findings on imaging. Continue with trach care. PT recs acute rehab however patient has no insurance at this time. Family will also need significant education in regards to trach/PEG care for the patient upon discharge. Case was discussed and reviewed with Attending Physician, Dr. Prado <Maryam Prado - Last Filed: 06/19/18 11:47> Objective - Vital Signs/Intake and Output Vital Signs (last 24 hours): Temp Pulse Resp BP Pulse Ox 98.2 F 65 18 104/66 99 06/19/18 06:00 06/19/18 09:09 06/19/18 06:00 06/19/18 09:09 06/19/18 06:00 Intake and Output: 06/19/18 06/19/18 06:59 18:59 Intake Total 0 Output Total 500 Balance -500 - Medications Medications: Current Medications Acetylcysteine (Acetylcysteine 20%) 4 ml IH ONCE ONE Stop: 06/19/18 20:48 Albuterol/Ipratropium (Duoneb 3 Mg/0.5 Mg (3 Ml) Ud) 3 ml IH Q2H PRN PRN Reason: Shortness of Breath Albuterol/Ipratropium (Duoneb 3 Mg/0.5 Mg (3 Ml) Ud) 3 ml IH [id number] [facility] Last Admin: 06/19/18 07:39 Dose: 3 ml Amantadine HCl (Amantadine 100 Mg Cap) 100 mg PO DAILY [facility] Last Admin: 06/19/18 09:09 Dose: 100 mg Aspirin (Aspirin Chewable) 81 mg PEG DAILY [facility] Last Admin: 06/19/18 09:10 Dose: 81 mg Atorvastatin Calcium (Lipitor) 80 mg PEG DIN [facility] Last Admin: 06/18/18 17:52 Dose: 80 mg Carbidopa/Levodopa (Sinemet) 1 tab PEG 1100,1600 [facility] Last Admin: 06/18/18 17:52 Dose: 1 tab Carbidopa/Levodopa (Sinemet 10/100) 2 tab PO 0700 [facility] Last Admin: 06/19/18 09:08 Dose: 2 tab Clopidogrel Bisulfate (Plavix) 75 mg PO DAILY [facility] Last Admin: 06/19/18 09:09 Dose: 75 mg Enoxaparin Sodium (Lovenox) 40 mg SC DAILY [facility]; Protocol Last Admin: 06/19/18 09:10 Dose: 40 mg Hydrochlorothiazide (Hydrodiuril) 12.5 mg PEG DAILY [facility] Last Admin: 06/19/18 09:08 Dose: 12.5 mg Cefepime HCl (Maxipime 2gm) 2 gm in 100 mls @ 100 mls/hr IVPB Q8H [facility]; Protocol Stop: 06/22/18 07:46 Last Admin: 06/19/18 09:10 Dose: 100 mls/hr Lisinopril (Zestril) 10 mg PEG DAILY [facility] Last Admin: 06/19/18 09:09 Dose: 10 mg Pantoprazole Sodium (Protonix Inj) 40 mg IVP DAILY [facility] Last Admin: 06/19/18 09:07 Dose: 40 mg - Labs Labs: 06/19/18 08:30 06/19/18 08:30 Attending/Attestation - Attestation I have personally seen and examined this patient.: Yes I have fully participated in the care of the patient.: Yes I have reviewed all pertinent clinical information, including history, physical exam and plan: Yes Notes (Text): 06/19/18 11:46 Medical record note made by the resident after discussion with my direction and input after the patient was personally seen and examined by me. I have reviewed the chart and agree that the record accurately reflects by personal performance of the history, physical exam, data review, and medical decision-making, in the course for the patient. I have also personally directed the plan of care. 62 M with pertinent medical history of recent CVA and Parkinson's disease presents s/p recent CVA. Per patient's daughter, he had a stroke on 06/11/2018 and was hospitalized in the [facility] [place]. During his hospital stay, he had a tracheostomy tube, PEG tube, and suprapubic catheter placed. Patient was discharged 3 days ago from the hospital, and was admitted here in hospital due to increase secretion. Sputum cultures are growing .Chest X ray is negative for Pneumonia.Sputum cultures are growing K.Pneumonia and serratia Marcescens. CT of head: chronic lacunar infarctions in bilateral basal ganglia and chronic infarction in the left occipital. MRI Brain: small 7mm acute infarct at R-cerebellar hemisphere. Chronic infarcts in joya and R-medulla. Chronic infarct in L-occipital lobe. MRA Head: chronic occlusions CT Head/Neck: unremarkable . Echo: EF 61%. Mod-severe aortic regurgitation. Bicuspid aortic valve. Patient is currently unable to speak 2/2 his tracheostomy tube, but is able to follow commands and comprehends what we are saying during interview. - PT recommends acute rehab. Awaiting placement. Management plan was discussed in detail with patient. And familyEducation was provided.
--- NOTE | 2018-06-18 16:13 | MRI ---
Date of service: 06/18/2018 PROCEDURE: MR Angiography of the neck without contrast HISTORY: acute stroking out COMPARISON: None available. TECHNIQUE: 3D [id number] angiography of the neck was performed. Rotating maximum intensity projection images of the cervical carotid and vertebral arteries were generated. The origins of the common carotid arteries were not visualized, which is a limitation inherent to the non-contrast time of flight technique. FINDINGS: RIGHT CAROTID ARTERIES: Common Carotid Artery: Normal. Carotid Bifurcation: Normal. Internal Carotid Artery:Normal. External Carotid Artery (proximal branches): Normal. LEFT CAROTID ARTERIES: Common Carotid Artery: Normal. Carotid Bifurcation: Normal. Internal Carotid Artery:Normal. External Carotid Artery (proximal branches): Normal. VERTEBRAL ARTERIES: Right Vertebral Artery: Normal. Left Vertebral Artery: Normal. OTHER FINDINGS: None. IMPRESSION: No significant stenosis
--- NOTE | 2018-06-18 23:46 | PN ---
DATE: 06/18/2018 SUBJECTIVE: The patient is in bed in no acute distress, nontoxic. Seen earlier today. PHYSICAL EXAMINATION: VITAL SIGNS: Temperature 99, blood pressure 160/70, and respiratory rate of 18. HEENT: Unremarkable. NECK: Supple. LUNGS: Decreased breath sounds. HEART: Normal S1 and S2. ABDOMEN: Soft and nontender. LABORATORY DATA: Reveals white count of 5.9, hemoglobin 12. Chemistries are noted. Creatinine is 0.6, procalcitonin 0.13. Urinalysis is noted. HIV test is negative. Microbiology is noted with trach ulcer. Nares MRSA screen is negative. Suprapubic catheter, multiple organisms and blood cultures are no growth. The patient had MRI of the head are seen. The patient also had an MRA consistent with chronic occlusion. MEDICATIONS: Review of orders reveals the patient to be on cefepime started by . ASSESSMENT AND PLAN: A 62-year-old male who is in [place], history of Parkinson's Disease, hypertension, the patient had cerebrovascular accident in [place] who is in the hospital for a month and has a suprapubic catheter and now gram-negative cony in the trach on cefepime. He will complete a short course of antibiotics. Aren Webb MD
[2018-06-19] MEDS: Albuterol-Ipratrop 3 mg / 0.5 (3 ml) UD IH SCH ×4 (01:47→20:39)
[2018-06-19 08:47] LABS: MEAN CELL VOLUME 90.5 fl (80.0-105.0); MEAN CORPUSCULAR HEMOGLOBIN 28.4 pg (25.0-35.0); MEAN CORPUSCULAR HGB CONC 31.3 g/dl (31.0-37.0); MEAN PLATELET VOLUME 10.3 fl (7.0-11.0); RBC 3.88 10^6/uL (3.5-6.1); RED CELL DISTRIBUTION WIDTH 13.5 % (11.5-14.5); WHITE BLOOD COUNT 4.7 10^3/uL (4.5-11.0)
[2018-06-19] MEDS: Enoxaparin 40 mg Syringe SC SCH (09:10)
[2018-06-19] MEDS: Cefepime IV 2 gm in NS 2 GM/100 ML BAG IVPB SCH ×3 (09:10→22:55)
[2018-06-19 09:14] LABS: ALB/GLOB RATIO 0.9 (1.1-1.8); ALT/SGPT 16 U/L (7-56); AST/SGOT 29 U/L (17-59); BLOOD UREA NITROGEN 16 mg/dL (7-21); CALCIUM 8.3 mg/dL (8.4-10.5); GFR NON-AFRICAN AMERICAN > 60
--- NOTE | 2018-06-19 13:30 | CP.PCM.PN ---
<Yared Combs - Last Filed: 06/19/18 13:27> Subjective - Date & Time of Evaluation Date of Evaluation: 06/19/18 Time of Evaluation: 08:00 - Subjective Subjective: Yared Combs PGY1 Medicine Progress Note for Dr. Prado Patient seen at bedside this morning. Vital signs are stable. Patient has trach, PEG tube, and suprapubic catheter in place. Family members at bedside. He follows commands very well. He does not endorse any sob, cp, n/v/d at this time. Overnight, patient's family was concerned that his tube feeds were causing his secretions and asked that it be discontinued. Family was educated this morning that patient needs to continue with tube feeds given his condition. Family and patient verbalized understanding. A full 12 point ROS was conducted and unremarkable except as stated above. Objective - Vital Signs/Intake and Output Vital Signs (last 24 hours): Temp Pulse Resp BP Pulse Ox 98.2 F 65 18 104/66 99 06/19/18 06:00 06/19/18 09:09 06/19/18 06:00 06/19/18 09:09 06/19/18 06:00 Intake and Output: 06/19/18 06/19/18 06:59 18:59 Intake Total 0 Output Total 500 Balance -500 - Medications Medications: Current Medications Acetylcysteine (Acetylcysteine 20%) 4 ml IH ONCE ONE Stop: 06/19/18 20:48 Albuterol/Ipratropium (Duoneb 3 Mg/0.5 Mg (3 Ml) Ud) 3 ml IH Q2H PRN PRN Reason: Shortness of Breath Albuterol/Ipratropium (Duoneb 3 Mg/0.5 Mg (3 Ml) Ud) 3 ml IH [id number] [facility] Last Admin: 06/19/18 07:39 Dose: 3 ml Amantadine HCl (Amantadine 100 Mg Cap) 100 mg PO DAILY [facility] Last Admin: 06/19/18 09:09 Dose: 100 mg Aspirin (Aspirin Chewable) 81 mg PEG DAILY [facility] Last Admin: 06/19/18 09:10 Dose: 81 mg Atorvastatin Calcium (Lipitor) 80 mg PEG DIN [facility] Last Admin: 06/18/18 17:52 Dose: 80 mg Carbidopa/Levodopa (Sinemet) 1 tab PEG 1100,1600 [facility] Last Admin: 06/19/18 12:25 Dose: 1 tab Carbidopa/Levodopa (Sinemet 10/100) 2 tab PO 0700 [facility] Last Admin: 06/19/18 09:08 Dose: 2 tab Clopidogrel Bisulfate (Plavix) 75 mg PO DAILY [facility] Last Admin: 06/19/18 09:09 Dose: 75 mg Enoxaparin Sodium (Lovenox) 40 mg SC DAILY [facility]; Protocol Last Admin: 06/19/18 09:10 Dose: 40 mg Hydrochlorothiazide (Hydrodiuril) 12.5 mg PEG DAILY [facility] Last Admin: 06/19/18 09:08 Dose: 12.5 mg Cefepime HCl (Maxipime 2gm) 2 gm in 100 mls @ 100 mls/hr IVPB Q8H [facility]; Protocol Stop: 06/22/18 07:46 Last Admin: 06/19/18 09:10 Dose: 100 mls/hr Lisinopril (Zestril) 10 mg PEG DAILY [facility] Last Admin: 06/19/18 09:09 Dose: 10 mg Pantoprazole Sodium (Protonix Inj) 40 mg IVP DAILY [facility] Last Admin: 06/19/18 09:07 Dose: 40 mg - Labs Labs: 06/19/18 08:30 06/19/18 08:30 - Constitutional Appears: Non-toxic - Head Exam Head Exam: ATRAUMATIC, NORMAL INSPECTION, NORMOCEPHALIC Additional comments: Tracheostomy tube in place - Eye Exam Eye Exam: EOMI, Normal appearance, PERRL Pupil Exam: NORMAL ACCOMODATION, PERRL - ENT Exam ENT Exam: Mucous Membranes Moist, Normal Exam - Neck Exam Neck exam: Positive for: Normal Inspection - Respiratory Exam Respiratory Exam: Clear to Auscultation Bilateral, NORMAL BREATHING PATTERN - Cardiovascular Exam Cardiovascular Exam: REGULAR RHYTHM - GI/Abdominal Exam GI & Abdominal Exam: Normal Bowel Sounds, Soft. PEG Tube in place. Suprapubic catheter in place. absent: Tenderness - Extremities Exam Extremities exam: Positive for: normal inspection. 5/5 motor strength in all extremities. - Back Exam Back exam: NORMAL INSPECTION - Neurological Exam Neurological exam: Awake, Alert, CN II-XII Intact, Reflexes Normal. Moves all extremities without difficulty. Follows commands. No neurological deficits. R esting tremor with masked facies. - Psychiatric Exam Psychiatric exam: Normal Affect, Normal Mood - Skin Skin Exam: Dry, Intact, Normal Color, Warm Assessment and Plan - Assessment and Plan (Free Text) Assessment: 62 M with PMHx HTN, Parkinson's Disease, Recent CVA complicated by tracheostomy tube, PEG tube, Suprapubic catheter (Hospitalized 1 month ago in [facility]) who presented to [facility] for mild shortness of breath with increased secretions due to recent tracheostomy tube placement. Patient has no focal neurological deficits. Neurology, Pulmonology, and ID are on consult. Patient's insurance recently terminated, he is pending placement to acute rehab facility. Plan: Mild SOB and Secretions 2/2 Recent Tracheostomy Tube Placement - c/w cefepime for empiric coverage as per ID recs - Trach/sputum Cx: +Klebsiella, +Serratia Marcescens - MRSA negative - BCx: negative x2 (prelim) after 3 days - UCx contaminated - Chest PT, frequent suctioning, and tracheostomy care - c/w albuterol as needed - CXR: no evidence of PNA - afebrile and no leukocytosis - elevate head of bed - ID on consult. Recs appreciated. - Pulmonology on consult for tracheostomy care. Recs appreciated. Chronic CVA with Small Acute Infarct - MRI Brain: small 7mm acute infarct at R-cerebellar hemisphere. Chronic infarcts in joya and R-medulla. Chronic infarct in L-occipital lobe. - MRA Head: chronic occlusions - CT of head: chronic lacunar infarctions in bilateral basal ganglia and chronic infarction in the left occipital. - CT Head/Neck: unremarkable - c/w ASA and statin - Carotid US: negative - Echo: EF 61%. Mod-severe aortic regurgitation. Bicuspid aortic valve. - PT recommends acute rehab. However, patient has no insurance at this time. 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 Continue educating family in regards to trach care. Recent insurance termination, pending new insurance. Case was discussed and reviewed with Attending Physician, Dr. Prado <Maryam Prado - Last Filed: 06/20/18 12:46> Objective - Vital Signs/Intake and Output Vital Signs (last 24 hours): Temp Pulse Resp BP Pulse Ox 98.5 F 67 24 102/62 93 L 06/20/18 08:36 06/20/18 08:36 06/20/18 08:36 06/20/18 08:36 06/20/18 08:36 - Medications Medications: Current Medications Albuterol/Ipratropium (Duoneb 3 Mg/0.5 Mg (3 Ml) Ud) 3 ml IH Q2H PRN PRN Reason: Shortness of Breath Albuterol/Ipratropium (Duoneb 3 Mg/0.5 Mg (3 Ml) Ud) 3 ml IH [id number] [facility] Last Admin: 06/20/18 08:35 Dose: 3 ml Amantadine HCl (Amantadine 100 Mg Cap) 100 mg PO DAILY [facility] Last Admin: 06/20/18 09:55 Dose: 100 mg Aspirin (Aspirin Chewable) 81 mg PEG DAILY [facility] Last Admin: 06/20/18 09:56 Dose: 81 mg Atorvastatin Calcium (Lipitor) 80 mg PEG DIN [facility] Last Admin: 06/19/18 17:33 Dose: 80 mg Carbidopa/Levodopa (Sinemet) 1 tab PEG 1100,1600 [facility] Last Admin: 06/19/18 16:23 Dose: 1 tab Carbidopa/Levodopa (Sinemet 10/100) 2 tab PO 0700 [facility] Last Admin: 06/20/18 08:24 Dose: 2 tab Clopidogrel Bisulfate (Plavix) 75 mg PO DAILY [facility] Last Admin: 06/20/18 09:56 Dose: 75 mg Enoxaparin Sodium (Lovenox) 40 mg SC DAILY [facility]; Protocol Last Admin: 06/20/18 09:55 Dose: 40 mg Hydrochlorothiazide (Hydrodiuril) 12.5 mg PEG DAILY [facility] Last Admin: 06/20/18 09:56 Dose: 12.5 mg Cefepime HCl (Maxipime 2gm) 2 gm in 100 mls @ 100 mls/hr IVPB Q8 [facility]; Protocol Stop: 06/25/18 14:01 Lisinopril (Zestril) 10 mg PEG DAILY [facility] Last Admin: 06/20/18 09:55 Dose: 10 mg Pantoprazole Sodium (Protonix Inj) 40 mg IVP DAILY [facility] Last Admin: 06/20/18 09:54 Dose: 40 mg - Labs Labs: 06/20/18 06:30 06/20/18 06:30 Attending/Attestation - Attestation I have personally seen and examined this patient.: Yes I have fully participated in the care of the patient.: Yes I have reviewed all pertinent clinical information, including history, physical exam and plan: Yes Notes (Text): 06/20/18 12:43 Patient was seen and examined with medical assistant secretary. 62 years old Male with pertinent medical history ofHTN,Hyperlipidemia recent CVA and Parkinson's disease presents s/p recent CVA. Per patient's daughter, he had a stroke on 06/11/2018 and was hospitalized in the [facility]. During his hospital stay, he had a tracheostomy tube, PEG tube, and suprapubic catheter placed. Patient was brought back to [facility] and was admitted here in hospital due to increase secretion. Sputum cultures are growing .Chest X ray is negative for Pneumonia.Sputum cultures are growing K.Pneumonia and serratia Marcescens. CT of head: chronic lacunar infarctions in bilateral basal ganglia and chronic infarction in the left occipital. MRI Brain: small 7mm acute infarct at R-cerebellar hemisphere. Chronic infarcts in joya and R-medulla. Chronic infarct in L-occipital lobe. MRA Head: chronic occlusions. CT Head/Neck: unremarkable .Echo: EF 61%. Mod-severe aortic regurgitation. Bicuspid aortic valve. - PT recommends acute rehab. Awaiting placement.
[2018-06-19] MEDS ORDERED: Acetylcysteine 20% Inhal Soln (4ml) IH ONE (20:47)
--- NOTE | 2018-06-20 00:06 | PN ---
DATE: 06/19/2018 SUBJECTIVE: The patient is in bed, in no acute distress, nontoxic. PHYSICAL EXAMINATION: VITAL SIGNS: Temperature 98, blood pressure 104/60, and respiratory rate of 18. HEENT: Unremarkable. NECK: Supple. LUNGS: Decreased breath sounds. HEART: Normal S1 and S2. ABDOMEN: Soft. LABORATORY DATA: Reveals white count of 4.7, hemoglobin of 11. BUN of 16, creatinine of 0.5. Urinalysis noted. Serology is noted. Microbiology reveals trace cultures of Klebsiella and Serratia, pansensitive organism both sensitive to cefepime and ceftriaxone. The patient had a neck MRA, no significant stenosis. ASSESSMENT AND PLAN: A 62-year-old male who was visiting [facility], history of Parkinson disease, hypertension, had a cerebrovascular accident in [facility] and was in the hospital there for a month, has a trach, suprapubic catheter, and now with Klebsiella and Serratia, tracheitis. The patient did have chest x-ray which was no active lung disease currently on cefepime day #3 with complete 4 to 7 days may be stable to switch to p.o. as feasible. Aren Webb MD
[2018-06-20] MEDS: Albuterol-Ipratrop 3 mg / 0.5 (3 ml) UD IH SCH ×4 (01:29→19:33)
[2018-06-20] MEDS ORDERED: Acetaminophen 650mg/20.3ml solution UD PO STA (02:29)
[2018-06-20 07:50] LABS: HEMOGLOBIN 11.8 g/dL (14.0-18.0); MEAN CELL VOLUME 90.7 fl (80.0-105.0); MEAN CORPUSCULAR HEMOGLOBIN 28.8 pg (25.0-35.0); MEAN CORPUSCULAR HGB CONC 31.7 g/dl (31.0-37.0); MEAN PLATELET VOLUME 10.7 fl (7.0-11.0); RBC 4.1 10^6/uL (3.5-6.1); RED CELL DISTRIBUTION WIDTH 13.6 % (11.5-14.5)
[2018-06-20 08:20] LABS: ALB/GLOB RATIO 0.9 (1.1-1.8); ALBUMIN 3.3 g/dL (3.0-4.8); ALT/SGPT 20 U/L (7-56); AST/SGOT 42 U/L (17-59); BLOOD UREA NITROGEN 19 mg/dL (7-21); CALCIUM 8.6 mg/dL (8.4-10.5); GFR NON-AFRICAN AMERICAN > 60
[2018-06-20] MEDS: Enoxaparin 40 mg Syringe SC SCH (09:55)
--- NOTE | 2018-06-20 11:57 | RAD ---
Date of service: 06/20/2018 HISTORY: r/o PNA COMPARISON: 06/15/2018. FINDINGS: LUNGS: No focal infiltrates identified. PLEURA: No significant pleural effusion identified, no pneumothorax apparent. CARDIOVASCULAR: No atherosclerotic calcification present Normal. OSSEOUS STRUCTURES: No significant abnormalities. VISUALIZED UPPER ABDOMEN: Normal. OTHER FINDINGS: Stable, satisfactory position of tracheostomy device. IMPRESSION: No active disease. No significant interval change compared to the prior examination(s).
--- NOTE | 2018-06-20 13:18 | CP.PCM.PN ---
<Yared Combs - Last Filed: 06/20/18 13:12> Subjective - Date & Time of Evaluation Date of Evaluation: 06/20/18 Time of Evaluation: 08:00 - Subjective Subjective: Yared Combs PGY1 Medicine Progress Note for Dr. Prado Patient seen at bedside this morning. Patient was febrile overnight with a Tmax 101.4 (rectal). Again, family member was concerned overnight that PEG tube feeding was causing patient to have worsening of secretions. However, family was at bedside this morning and was explained that this is not the case. Patient has trach, PEG tube, and suprapubic catheter in place. He follows commands very well. He does not endorse any sob, cp, n/v/d at this time. A full 12 point ROS was conducted and unremarkable except as stated above. Objective - Vital Signs/Intake and Output Vital Signs (last 24 hours): Temp Pulse Resp BP Pulse Ox 98.5 F 67 24 102/62 93 L 06/20/18 08:36 06/20/18 08:36 06/20/18 08:36 06/20/18 08:36 06/20/18 08:36 - Medications Medications: Current Medications Albuterol/Ipratropium (Duoneb 3 Mg/0.5 Mg (3 Ml) Ud) 3 ml IH Q2H PRN PRN Reason: Shortness of Breath Albuterol/Ipratropium (Duoneb 3 Mg/0.5 Mg (3 Ml) Ud) 3 ml IH [id number] [facility] Last Admin: 06/20/18 08:35 Dose: 3 ml Amantadine HCl (Amantadine 100 Mg Cap) 100 mg PO DAILY [facility] Last Admin: 06/20/18 09:55 Dose: 100 mg Aspirin (Aspirin Chewable) 81 mg PEG DAILY [facility] Last Admin: 06/20/18 09:56 Dose: 81 mg Atorvastatin Calcium (Lipitor) 80 mg PEG DIN [facility] Last Admin: 06/19/18 17:33 Dose: 80 mg Carbidopa/Levodopa (Sinemet) 1 tab PEG 1100,1600 [facility] Last Admin: 06/19/18 16:23 Dose: 1 tab Carbidopa/Levodopa (Sinemet 10/100) 2 tab PO 0700 [facility] Last Admin: 06/20/18 08:24 Dose: 2 tab Clopidogrel Bisulfate (Plavix) 75 mg PO DAILY [facility] Last Admin: 06/20/18 09:56 Dose: 75 mg Enoxaparin Sodium (Lovenox) 40 mg SC DAILY [facility]; Protocol Last Admin: 06/20/18 09:55 Dose: 40 mg Hydrochlorothiazide (Hydrodiuril) 12.5 mg PEG DAILY [facility] Last Admin: 06/20/18 09:56 Dose: 12.5 mg Cefepime HCl (Maxipime 2gm) 2 gm in 100 mls @ 100 mls/hr IVPB Q8 [facility]; Protocol Stop: 06/25/18 14:01 Lisinopril (Zestril) 10 mg PEG DAILY [facility] Last Admin: 06/20/18 09:55 Dose: 10 mg Pantoprazole Sodium (Protonix Inj) 40 mg IVP DAILY [facility] Last Admin: 06/20/18 09:54 Dose: 40 mg - Labs Labs: 06/20/18 06:30 06/20/18 06:30 - Constitutional Appears: Non-toxic - Head Exam Head Exam: ATRAUMATIC, NORMAL INSPECTION, NORMOCEPHALIC Additional comments: Tracheostomy tube in place - Eye Exam Eye Exam: EOMI, Normal appearance, PERRL Pupil Exam: NORMAL ACCOMODATION, PERRL - ENT Exam ENT Exam: Mucous Membranes Moist, Normal Exam - Neck Exam Neck exam: Positive for: Normal Inspection - Respiratory Exam Respiratory Exam: Clear to Auscultation Bilateral, NORMAL BREATHING PATTERN - Cardiovascular Exam Cardiovascular Exam: REGULAR RHYTHM - GI/Abdominal Exam GI & Abdominal Exam: Normal Bowel Sounds, Soft. PEG Tube in place. Suprapubic catheter in place. absent: Tenderness - Extremities Exam Extremities exam: Positive for: normal inspection. 5/5 motor strength in all extremities. - Back Exam Back exam: NORMAL INSPECTION - Neurological Exam Neurological exam: Awake, Alert, CN II-XII Intact, Reflexes Normal. Moves all extremities without difficulty. Follows commands. No neurological deficits. Resting tremor with masked facies. - Psychiatric Exam Psychiatric exam: Normal Affect, Normal Mood - Skin Skin Exam: Dry, Intact, Normal Color, Warm Assessment and Plan - Assessment and Plan (Free Text) Assessment: 62 M with PMHx HTN, Parkinson's Disease, Recent CVA complicated by tracheostomy tube, PEG tube, Suprapubic catheter (Hospitalized 1 month ago in [facility]) who presented to [facility] for mild shortness of breath with increased respiratory secretions due to recent tracheostomy tube placement and +Sputum Cultures. Patient has no focal neurological deficits. Neurology, Pulmonology, and ID are on consult. Patient's insurance recently terminated, he is pending placement to acute rehab facility. Plan: Respiratory Secretions 2/2 Recent Tracheostomy Tube Placement with +Sputum Cultures - Febrile overnight; monitor for fevers - c/w Chest PT, frequent suctioning, and tracheostomy care - c/w albuterol as needed and scheduled - c/w cefepime as per ID recs (Day 4). As per ID, complete 4-7 days total. - Trach/sputum Cx: +Klebsiella, +Serratia Marcescens - BCx: negative x2 (prelim) after 4 days - UCx contaminated - CXR: no evidence of PNA - elevate head of bed - aspiration precautions - ID on consult. Recs appreciated. - Pulmonology on consult for tracheostomy care. Recs appreciated. Chronic CVA with Small Acute Infarct - MRI Brain: small 7mm acute infarct at R-cerebellar hemisphere. Chronic infarcts in joya and R-medulla. Chronic infarct in L-occipital lobe. - MRA Head: chronic occlusions - CT of head: chronic lacunar infarctions in bilateral basal ganglia and chronic infarction in the left occipital. - CT Head/Neck: unremarkable - c/w ASA and statin - Carotid US: negative - Echo: EF 61%. Mod-severe aortic regurgitation. Bicuspid aortic valve. - PT recommends acute rehab. However, patient has no insurance at this time. - c/w PT/OT/[employer] Parkinson's disease - c/w Carbidopa-Levodopa - c/w Amantadine HTN - c/w HCTZ 12.5mg daily - c/w Lisinopril 10mg daily HLD - c/w Lipitor 80mg daily Hx PEG Tube - c/w bolus feeds via PEG - Family explained the importance of maintaining nutrition. Also explained that feeding is not the cause of his secretions. Hx Suprapubic Cath - maintain for now ppx: - Lovenox 40 SC daily - PTX IVP daily Dispo: continue to monitor patient on med/surg at this time. Continue educating family in regards to trach care. Recent insurance termination, pending new insurance. Case was discussed and reviewed with Attending Physician, Dr. Prado <Maryam Prado - Last Filed: 06/20/18 15:01> Objective - Vital Signs/Intake and Output Vital Signs (last 24 hours): Temp Pulse Resp BP Pulse Ox 98.7 F 76 22 113/64 95 06/20/18 14:00 06/20/18 14:00 06/20/18 14:00 06/20/18 14:00 06/20/18 14:00 Intake and Output: 06/20/18 06/20/18 06:59 18:59 Intake Total 0 Output Total 200 Balance -200 - Medications Medications: Current Medications Albuterol/Ipratropium (Duoneb 3 Mg/0.5 Mg (3 Ml) Ud) 3 ml IH Q2H PRN PRN Reason: Shortness of Breath Albuterol/Ipratropium (Duoneb 3 Mg/0.5 Mg (3 Ml) Ud) 3 ml IH [id number] [facility] Last Admin: 06/20/18 13:47 Dose: 3 ml Amantadine HCl (Amantadine 100 Mg Cap) 100 mg PO DAILY [facility] Last Admin: 06/20/18 09:55 Dose: 100 mg Aspirin (Aspirin Chewable) 81 mg PEG DAILY [facility] Last Admin: 06/20/18 09:56 Dose: 81 mg Atorvastatin Calcium (Lipitor) 80 mg PEG DIN [facility] Last Admin: 06/19/18 17:33 Dose: 80 mg Carbidopa/Levodopa (Sinemet) 1 tab PEG 1100,1600 [facility] Last Admin: 06/20/18 13:34 Dose: 1 tab Carbidopa/Levodopa (Sinemet 10/100) 2 tab PO 0700 [facility] Last Admin: 06/20/18 08:24 Dose: 2 tab Clopidogrel Bisulfate (Plavix) 75 mg PO DAILY [facility] Last Admin: 06/20/18 09:56 Dose: 75 mg Enoxaparin Sodium (Lovenox) 40 mg SC DAILY [facility]; Protocol Last Admin: 06/20/18 09:55 Dose: 40 mg Hydrochlorothiazide (Hydrodiuril) 12.5 mg PEG DAILY [facility] Last Admin: 06/20/18 09:56 Dose: 12.5 mg Cefepime HCl (Maxipime 2gm) 2 gm in 100 mls @ 100 mls/hr IVPB Q8 [facility]; Protocol Stop: 06/25/18 14:01 Last Admin: 06/20/18 13:53 Dose: 100 mls/hr Lisinopril (Zestril) 10 mg PEG DAILY [facility] Last Admin: 06/20/18 09:55 Dose: 10 mg Pantoprazole Sodium (Protonix Inj) 40 mg IVP DAILY [facility] Last Admin: 06/20/18 09:54 Dose: 40 mg - Labs Labs: 06/20/18 06:30 06/20/18 06:30 Attending/Attestation - Attestation I have personally seen and examined this patient.: Yes I have fully participated in the care of the patient.: Yes I have reviewed all pertinent clinical information, including history, physical exam and plan: Yes Notes (Text): 06/20/18 14:53 Medical record note made by the resident after discussion with my direction and input after the patient was personally seen and examined by me. I have reviewed the chart and agree that the record accurately reflects by personal performance of the history, physical exam, data review, and medical decision-making, in the course for the patient. I have also personally directed the plan of care. 62 years old Male with PMH hofHTN,Hyperlipidemia recent CVA and Parkinson's disease.. Patient had a stroke on 06/11/2018 and was hospitalized in the [facility] [place]. During his hospital stay, he had a tracheostomy tube, PEG tube, and suprapubic catheter was placed for urinary retension?. Patient was brought back to [facility] and was admitted here in hospital due to increase secretion. Chest X ray is negative for Pneumonia.Sputum cultures are growing K.Pneumonia and serratia Marcescens. Patient had fever spike one time last time since admission but otherwise afebrile.He is on IV cefepime as per ID. Pulmonary evaluation is appreciated.The issue of enteral feeding and tracheostomy was discussed in detail with family. CT of head: chronic lacunar infarctions in bilateral basal ganglia and chronic infarction in the left occipital. MRI Brain: small 7mm acute infarct at R-cerebellar hemisphere. Chronic infarcts in joya and R-medulla. Chronic infarct in L-occipital lobe. MRA Head: chronic occlusions. CT Head/Neck: unremarkable . Echo:EF 61%. Mod-severe aortic regurgitation. Bicuspid aortic valve. Continue ASA/Lipitor /Lisinopril. PT recommends acute rehab. Awaiting placement. Management plan was discussed in detail with patient and family. Education was provided.
[2018-06-20] MEDS: Cefepime IV 2 gm in NS 2 GM/100 ML BAG IVPB SCH ×3 (13:52→21:55)
--- NOTE | 2018-06-20 20:11 | PN ---
DATE: 06/20/2018 SUBJECTIVE: The patient is in bed, in no acute distress, nontoxic. PHYSICAL EXAMINATION VITAL SIGNS: Temperature is 98, T-max is 101.4, respiratory rate of 18, was up to 22, and heart rate of 76. HEENT: Unremarkable. NECK: Supple. LUNGS: Decreased breath sounds. HEART: Normal S1 and S2. ABDOMEN: Soft. LABORATORY DATA: Reveals a white count 8,000, hemoglobin of 11. BUN 19 and creatinine of 0.5. Urinalysis is noted. HIV is negative. Microbiology reveals Klebsiella pneumonia and Serratia, both are relatively sensitive organisms. Klebsiella is only resistant to ampicillin. The Serratia is sensitive to first generation cephalosporin and cefazolin and it is sensitive to ceftriaxone. The patient had a chest x-ray. No focal infiltrates. REVIEW OF ORDERS: Reveals the patient to be on Cefepime. ASSESSMENT AND PLAN: A 62-year-old male who was visiting the [facility] with a history of Parkinson's disease, hypertension, cerebrovascular accident in the [place] when he was there for one month and had a tracheostomy and suprapubic catheter, now with Klebsiella and Serratia, trachelitis. Today is day #4 of Cefepime, would complete 4 to 7 days. The patient did have low-grade fevers. We will follow with you. Aren Webb MD
[2018-06-20] MEDS: Albuterol-Ipratrop 3 mg / 0.5 (3 ml) UD IH PRN (22:09)
[2018-06-21] MEDS: Albuterol-Ipratrop 3 mg / 0.5 (3 ml) UD IH SCH ×4 (01:01→20:19)
[2018-06-21 02:58] LABS: URINE BILIRUBIN SMALL (NEGATIVE); URINE BLOOD LARGE (NEGATIVE); URINE GLUCOSE (UA) NEGATIVE (NEGATIVE); URINE LEUKOCYTE ESTERASE TRACE Leu/uL (NEGATIVE); URINE PROTEIN 100 mg/dL (<30 mg/dL)
[2018-06-21 03:03] LABS: URINE APPEARANCE CLOUDY (CLEAR); URINE COLOR DARK YELLOW (YELLOW)
[2018-06-21 03:17] LABS: URINE BACTERIA FEW /hpf; URINE EPITHELIAL CELLS 0 - 2 /hpf (0-5); URINE RBC TNTC /hpf (0-2)
[2018-06-21] MEDS: Cefepime IV 2 gm in NS 2 GM/100 ML BAG IVPB SCH ×3 (05:12→21:26)
[2018-06-21 07:00] LABS: MEAN CELL VOLUME 91.5 fl (80.0-105.0); MEAN CORPUSCULAR HEMOGLOBIN 29.2 pg (25.0-35.0); MEAN CORPUSCULAR HGB CONC 31.9 g/dl (31.0-37.0); MEAN PLATELET VOLUME 10.5 fl (7.0-11.0); RBC 3.77 10^6/uL (3.5-6.1); RED CELL DISTRIBUTION WIDTH 13.4 % (11.5-14.5); WHITE BLOOD COUNT 5.7 10^3/uL (4.5-11.0)
[2018-06-21 07:31] LABS: ALB/GLOB RATIO 0.8 (1.1-1.8); ALBUMIN 3.1 g/dL (3.0-4.8); ALT/SGPT 15 U/L (7-56); AST/SGOT 28 U/L (17-59); BLOOD UREA NITROGEN 18 mg/dL (7-21); CALCIUM 8.3 mg/dL (8.4-10.5); GFR NON-AFRICAN AMERICAN > 60
[2018-06-21] MEDS: Enoxaparin 40 mg Syringe SC SCH (10:29)
--- NOTE | 2018-06-21 13:42 | CP.PCM.PN ---
<Babak Fofana - Last Filed: 06/21/18 13:31> Subjective - Date & Time of Evaluation Date of Evaluation: 06/21/18 Time of Evaluation: 10:30 - Subjective Subjective: Babak Fofana PGY1 [facility] Medicine Progress Note Patient seen and examined at bedside this morning. No acute events reported overnight. Patient has been afebrile over the last 24 hours. Patient denies CP, SOB, nausea, vomiting and fevers at this time. He is AO x3 and follows commands. Working with case management and PT for discharge home. Objective - Vital Signs/Intake and Output Vital Signs (last 24 hours): Temp Pulse Resp BP Pulse Ox 97.6 F 66 20 105/59 L 95 06/21/18 06:00 06/21/18 06:00 06/21/18 06:00 06/21/18 06:00 06/21/18 06:00 - Medications Medications: Current Medications Albuterol/Ipratropium (Duoneb 3 Mg/0.5 Mg (3 Ml) Ud) 3 ml IH Q2H PRN PRN Reason: Shortness of Breath Last Admin: 06/20/18 22:09 Dose: 3 ml Albuterol/Ipratropium (Duoneb 3 Mg/0.5 Mg (3 Ml) Ud) 3 ml IH [id number] [facility] Last Admin: 06/21/18 13:14 Dose: 3 ml Amantadine HCl (Amantadine 100 Mg Cap) 100 mg PO DAILY [facility] Last Admin: 06/21/18 10:28 Dose: 100 mg Aspirin (Aspirin Chewable) 81 mg PEG DAILY [facility] Last Admin: 06/21/18 10:28 Dose: 81 mg Atorvastatin Calcium (Lipitor) 80 mg PEG DIN [facility] Last Admin: 06/20/18 18:38 Dose: 80 mg Carbidopa/Levodopa (Sinemet) 1 tab PEG 1100,1600 [facility] Last Admin: 06/21/18 12:31 Dose: 1 tab Carbidopa/Levodopa (Sinemet 10/100) 2 tab PO 0700 [facility] Last Admin: 06/21/18 10:27 Dose: 2 tab Clopidogrel Bisulfate (Plavix) 75 mg PO DAILY [facility] Last Admin: 06/21/18 10:27 Dose: 75 mg Enoxaparin Sodium (Lovenox) 40 mg SC DAILY [facility]; Protocol Last Admin: 06/21/18 10:29 Dose: 40 mg Hydrochlorothiazide (Hydrodiuril) 12.5 mg PEG DAILY [facility] Last Admin: 06/21/18 10:28 Dose: 12.5 mg Cefepime HCl (Maxipime 2gm) 2 gm in 100 mls @ 100 mls/hr IVPB Q8 [facility]; Protocol Stop: 06/25/18 14:01 Last Admin: 06/21/18 05:12 Dose: 100 mls/hr Lisinopril (Zestril) 10 mg PEG DAILY [facility] Last Admin: 06/21/18 10:28 Dose: 10 mg Pantoprazole Sodium (Protonix Inj) 40 mg IVP DAILY [facility] Last Admin: 06/21/18 10:28 Dose: 40 mg - Labs Labs: 06/21/18 06:45 06/21/18 06:45 - Constitutional Appears: Non-toxic - Head Exam Head Exam: ATRAUMATIC, NORMAL INSPECTION, NORMOCEPHALIC Additional comments: Tracheostomy tube in place, clean and non draining/bleeding - Eye Exam Eye Exam: EOMI, Normal appearance, PERRL Pupil Exam: NORMAL ACCOMODATION, PERRL - ENT Exam ENT Exam: Mucous Membranes Moist, Normal Exam - Neck Exam Neck exam: Positive for: Normal Inspection - Respiratory Exam Respiratory Exam: Clear to Auscultation Bilateral, NORMAL BREATHING PATTERN, no respiratory distress - Cardiovascular Exam Cardiovascular Exam: REGULAR RHYTHM, no tachycardia - GI/Abdominal Exam GI & Abdominal Exam: Normal Bowel Sounds, Soft. PEG Tube in place, site is c/d/i. Suprapubic catheter in place site is c/d/i. absent: Tenderness, rebound, guarding - Extremities Exam Extremities exam: Positive for: normal inspection. 5/5 muscle strength in upper and lower extremities B/L - Neurological Exam Neurological exam: Awake, Alert, CN II-XII Intact, Moves all extremities without difficulty. No focal motor/sensory deficits noted. Resting tremor with masked facies present . - Psychiatric Exam Psychiatric exam: Normal Affect, Normal Mood - Skin Skin Exam: Dry, Intact, Normal Color, Warm Assessment and Plan - Assessment and Plan (Free Text) Assessment: 62 M with PMHx HTN, Parkinson's Disease, Recent CVA complicated by tracheostomy tube, PEG tube, Suprapubic catheter (Hospitalized 1 month ago in [facility]) who presented to [facility] for mild shortness of breath with increased respiratory secretions due to recent tracheostomy tube placement and +Sputum Cultures. Patient has no focal neurological deficits. Neurology, Pulmonology, and ID are on consult. Patient's insurance recently terminated, and as per case management rn will be discharged home without services. Working with PT and social human services assistants for family education on trach care. Plan: Respiratory Secretions -2/2 Recent Tracheostomy Tube Placement -afebrile over the last 24 hours -sputum cx positive for klebsiella, serratia marcescens -cepepime day 4, will need 4-7 days as per ID -continue chest PT, trach care -repeat blood cultures negative for 24 hours -CXR 06/20 shows no active disease, no significant interval change compared to prior examination -aspiration precautions, HOB elevated -elevate head of bed -aspiration precautions -ID and pulmonology on consult Chronic CVA with Small Acute Infarct -06/18 MRI Brain: small 7mm acute infarct at R-cerebellar hemisphere. Chronic infarcts in joya and R-medulla. Chronic infarct in L-occipital lobe. -06/18 MRA Head: chronic occlusions -06/16 CT head: chronic lacunar infarctions in bilateral basal ganglia and chronic infarction in the left occipital. -06/16 CT Head/Neck: unremarkable -Carotid US: negative -Echo: EF 61%. Mod-severe aortic regurgitation. Bicuspid aortic valve. -PT to evaluate discharge home -continue aspirin, lipitor Hx of HTN -continue HCTZ 12.5mg daily, Lisinopril 10mg daily Hx of HLD -continue Lipitor 80mg daily Hx of Parkinson's disease -continue Carbidopa-Levodopa, amantadine Hx PEG Tube -director long term care ordered -continue bolus feeds Hx Suprapubic Cath -monitor ppx: -Lovenox 40 SC daily -Protonix IVP daily Patient seen and case discussed with attending, Dr. Beard <Anh Beard - Last Filed: 06/21/18 14:05> Objective - Vital Signs/Intake and Output Vital Signs (last 24 hours): Temp Pulse Resp BP Pulse Ox 97.6 F 66 20 105/59 L 95 06/21/18 06:00 06/21/18 06:00 06/21/18 06:00 06/21/18 06:00 06/21/18 06:00 - Medications Medications: Current Medications Albuterol/Ipratropium (Duoneb 3 Mg/0.5 Mg (3 Ml) Ud) 3 ml IH Q2H PRN PRN Reason: Shortness of Breath Last Admin: 06/20/18 22:09 Dose: 3 ml Albuterol/Ipratropium (Duoneb 3 Mg/0.5 Mg (3 Ml) Ud) 3 ml IH [id number] [facility] Last Admin: 06/21/18 13:14 Dose: 3 ml Amantadine HCl (Amantadine 100 Mg Cap) 100 mg PO DAILY [facility] Last Admin: 06/21/18 10:28 Dose: 100 mg Aspirin (Aspirin Chewable) 81 mg PEG DAILY [facility] Last Admin: 06/21/18 10:28 Dose: 81 mg Atorvastatin Calcium (Lipitor) 80 mg PEG DIN [facility] Last Admin: 06/20/18 18:38 Dose: 80 mg Carbidopa/Levodopa (Sinemet) 1 tab PEG 1100,1600 [facility] Last Admin: 06/21/18 12:31 Dose: 1 tab Carbidopa/Levodopa (Sinemet 10/100) 2 tab PO 0700 [facility] Last Admin: 06/21/18 10:27 Dose: 2 tab Clopidogrel Bisulfate (Plavix) 75 mg PO DAILY [facility] Last Admin: 06/21/18 10:27 Dose: 75 mg Enoxaparin Sodium (Lovenox) 40 mg SC DAILY [facility]; Protocol Last Admin: 06/21/18 10:29 Dose: 40 mg Hydrochlorothiazide (Hydrodiuril) 12.5 mg PEG DAILY [facility] Last Admin: 06/21/18 10:28 Dose: 12.5 mg Cefepime HCl (Maxipime 2gm) 2 gm in 100 mls @ 100 mls/hr IVPB Q8 [facility]; Protocol Stop: 06/25/18 14:01 Last Admin: 06/21/18 05:12 Dose: 100 mls/hr Lisinopril (Zestril) 10 mg PEG DAILY [facility] Last Admin: 06/21/18 10:28 Dose: 10 mg Pantoprazole Sodium (Protonix Inj) 40 mg IVP DAILY [facility] Last Admin: 06/21/18 10:28 Dose: 40 mg - Labs Labs: 06/21/18 06:45 06/21/18 06:45 Attending/Attestation - Attestation I have personally seen and examined this patient.: Yes I have fully participated in the care of the patient.: Yes I have reviewed all pertinent clinical information, including history, physical exam and plan: Yes Notes (Text): 06/21/18 13:55 62 year old male with past medical history of hypertension, dyslipidemia, Parkinson's disease and recent CVA s/p trach s/p PEG and s/p suprapubic catheter who presented with increased secretions from trach. Tracheal cultures is growing Klebsiella Pneumonia and Serratia Marcescens. CXR is negative. Last fever was yesterday morning. Continue with iv antibiotics as per ID. CT head, MRI brain, MRA head, and CT head/necks studies reviewed as above. Patient is on aspirin, lisinopril and statin. PT is following and recommending acute rehab. However patient has no insurance. PT follow up requested, ?home with family support. Anh Beard MD Hospitalist.
--- NOTE | 2018-06-22 00:25 | PN ---
DATE: 06/21/2018 SUBJECTIVE: The patient is seen in bed, in no acute distress, and nontoxic. OBJECTIVE: VITAL SIGNS: Temperature is 99, blood pressure is 115/50, respiratory rate of 18, and heart rate of 66. HEENT: Unremarkable. NECK: Supple. LUNGS: Have decreased breath sounds. HEART: Normal S1 and S2. ABDOMEN: Soft. LABORATORY EXAMINATION: Reveals a white count of 5.7, hemoglobin of 11, and creatinine of 0.4. The patient's procalcitonin is 0.13. Urinalysis is noted and serology is noted and microbiology is reviewed, there is Klebsiella and Serratia. ASSESSMENT AND PLAN: This is a 62-year-old male visiting [facility] with history of Parkinson's disease, hypertension, and cerebrovascular accident. The patient was in the hospital at [facility] for over one month and had tracheostomy, suprapubic catheter with Klebsiella and Serratia tracheitis, today is day #5 of cefepime and we will discontinue the antibiotic within the next 24 hours. The patient is afebrile. White count is normal. Aren Webb MD
[2018-06-22] MEDS: Albuterol-Ipratrop 3 mg / 0.5 (3 ml) UD IH SCH ×4 (01:37→20:26)
[2018-06-22] MEDS: Cefepime IV 2 gm in NS 2 GM/100 ML BAG IVPB SCH ×3 (05:06→21:11)
[2018-06-22 07:06] LABS: HEMOGLOBIN 10.8 g/dL (14.0-18.0); MEAN CELL VOLUME 91.7 fl (80.0-105.0); MEAN CORPUSCULAR HGB CONC 31.7 g/dl (31.0-37.0); MEAN PLATELET VOLUME 10.5 fl (7.0-11.0); RBC 3.72 10^6/uL (3.5-6.1); RED CELL DISTRIBUTION WIDTH 13.5 % (11.5-14.5); WHITE BLOOD COUNT 5.9 10^3/uL (4.5-11.0)
[2018-06-22 07:34] LABS: ALB/GLOB RATIO 0.8 (1.1-1.8); ALT/SGPT 10 U/L (7-56); AST/SGOT 27 U/L (17-59); BLOOD UREA NITROGEN 22 mg/dL (7-21); CALCIUM 8.3 mg/dL (8.4-10.5); GFR NON-AFRICAN AMERICAN > 60
[2018-06-22] MEDS: Enoxaparin 40 mg Syringe SC SCH (11:13)
--- NOTE | 2018-06-22 15:54 | CP.PCM.PN ---
<Babak Fofana - Last Filed: 06/22/18 15:50> Subjective - Date & Time of Evaluation Date of Evaluation: 06/22/18 Time of Evaluation: 10:45 - Subjective Subjective: Babak Fofana PGY1 [facility] Medicine Progress Note Patient seen and examined at bedside this morning. No acute events reported overnight. Patient resting comfortably in bed and denies any complaints at his time. Patient denies CP, SOB, nausea, vomiting and fevers at this time. Objective - Vital Signs/Intake and Output Vital Signs (last 24 hours): Temp Pulse Resp BP Pulse Ox 97.9 F 81 20 91/52 L 97 06/22/18 14:00 06/22/18 14:00 06/22/18 14:00 06/22/18 14:00 06/22/18 14:00 Intake and Output: 06/22/18 06/22/18 06:59 18:59 Output Total 300 Balance -300 - Medications Medications: Current Medications Albuterol/Ipratropium (Duoneb 3 Mg/0.5 Mg (3 Ml) Ud) 3 ml IH Q2H PRN PRN Reason: Shortness of Breath Last Admin: 06/20/18 22:09 Dose: 3 ml Albuterol/Ipratropium (Duoneb 3 Mg/0.5 Mg (3 Ml) Ud) 3 ml IH [id number] [facility] Last Admin: 06/22/18 13:04 Dose: 3 ml Aspirin (Aspirin Chewable) 81 mg PEG DAILY [facility] Last Admin: 06/22/18 11:13 Dose: 81 mg Atorvastatin Calcium (Lipitor) 80 mg PEG DIN [facility] Last Admin: 06/21/18 18:15 Dose: 80 mg Carbidopa/Levodopa (Sinemet) 1 tab PEG 1100,1600 [facility] Last Admin: 06/22/18 11:15 Dose: 1 tab Carbidopa/Levodopa (Sinemet 10/100) 2 tab PO 0700 [facility] Last Admin: 06/22/18 11:15 Dose: 2 tab Clopidogrel Bisulfate (Plavix) 75 mg PO DAILY [facility] Last Admin: 06/22/18 11:13 Dose: 75 mg Enoxaparin Sodium (Lovenox) 40 mg SC DAILY [facility]; Protocol Last Admin: 06/22/18 11:13 Dose: 40 mg Hydrochlorothiazide (Hydrodiuril) 12.5 mg PEG DAILY [facility] Last Admin: 06/22/18 11:04 Dose: Not Given Cefepime HCl (Maxipime 2gm) 2 gm in 100 mls @ 100 mls/hr IVPB Q8 [facility]; Protocol Stop: 06/25/18 14:01 Last Admin: 06/22/18 13:50 Dose: 100 mls/hr Lisinopril (Zestril) 10 mg PEG DAILY [facility] Last Admin: 06/22/18 11:04 Dose: Not Given Pantoprazole Sodium (Protonix Inj) 40 mg IVP DAILY [facility] Last Admin: 06/22/18 11:13 Dose: 40 mg - Labs Labs: 06/22/18 06:40 06/22/18 06:40 - Constitutional Appears: Non-toxic - Head Exam Head Exam: ATRAUMATIC, NORMAL INSPECTION, NORMOCEPHALIC Additional comments: Tracheostomy tube in place, clean and non bleeding/draining - Eye Exam Eye Exam: EOMI, Normal appearance, PERRL Pupil Exam: NORMAL ACCOMODATION, PERRL - ENT Exam ENT Exam: Mucous Membranes Moist, Normal Exam - Neck Exam Additional comments: Tracheostomy tube in place, clean and non bleeding/draining - Respiratory Exam Respiratory Exam: Clear to Auscultation Bilateral, NORMAL BREATHING PATTERN, no respiratory distress - Cardiovascular Exam Cardiovascular Exam: REGULAR RHYTHM, no tachycardia - GI/Abdominal Exam GI & Abdominal Exam: Normal Bowel Sounds, Soft. PEG Tube in place, site is c/d/i. Suprapubic catheter in place site is c/d/i. absent: Tenderness, rebound, guarding - Extremities Exam Extremities exam: Positive for: normal inspection. 5/5 muscle strength in upper and lower extremities B/L - Neurological Exam Neurological exam: Awake, Alert, CN II-XII Intact, Moves all extremities without difficulty. No focal motor/sensory deficits noted. Resting tremor with masked facies present . - Psychiatric Exam Psychiatric exam: Normal Affect, Normal Mood - Skin Skin Exam: Dry, Intact, Normal Color, Warm Assessment and Plan - Assessment and Plan (Free Text) Assessment: 62 M with PMHx HTN, Parkinson's Disease, Recent CVA complicated by tracheostomy tube, PEG tube, Suprapubic catheter (Hospitalized 1 month ago in [facility]) who presented to [facility] for mild shortness of breath with increased respiratory secretions due to recent tracheostomy tube placement and +Sputum Cultures. Patient has no focal neurological deficits. Neurology, Pulmonology, and ID are on consult. Patient's insurance recently terminated and PT recommending acute rehab. Will continue inpatient PT at this time. Plan: Respiratory Secretions -2/2 Recent Tracheostomy Tube Placement -patient has been afebrile -sputum cx positive for klebsiella, serratia marcescens -cepepime day 5, will need 4-7 days as per ID -repeat blood cultures negative for 2 days -urine culture growing yeast -continue chest PT, trach care -CXR 06/20 shows no active disease, no significant interval change compared to prior examination -aspiration precautions, HOB elevated -elevate head of bed -aspiration precautions -ID and pulmonology on consult Chronic CVA with Small Acute Infarct -06/18 MRI Brain: small 7mm acute infarct at R-cerebellar hemisphere. Chronic infarcts in joya and R-medulla. Chronic infarct in L-occipital lobe. -06/18 MRA Head: chronic occlusions -06/16 CT head: chronic lacunar infarctions in bilateral basal ganglia and chronic infarction in the left occipital. -06/16 CT Head/Neck: unremarkable -Carotid US: negative -Echo: EF 61%. Mod-severe aortic regurgitation. Bicuspid aortic valve. -PT recommending acute rehab, however patient's insurance does qualify -continue aspirin, lipitor Hx of HTN -continue HCTZ 12.5mg daily, Lisinopril 10mg daily Hx of HLD -continue Lipitor 80mg daily Hx of Parkinson's disease -continue Carbidopa-Levodopa, amantadine Hx PEG Tube -continue bolus feeds Hx Suprapubic Cath -monitor ppx: -Lovenox 40 SC daily -Protonix IVP daily Patient seen and case discussed with attending, Dr. Beard <Anh Beard - Last Filed: 06/22/18 16:35> Objective - Vital Signs/Intake and Output Vital Signs (last 24 hours): Temp Pulse Resp BP Pulse Ox 97.9 F 81 20 91/52 L 97 06/22/18 14:00 06/22/18 14:00 06/22/18 14:00 06/22/18 14:00 06/22/18 14:00 Intake and Output: 06/22/18 06/22/18 06:59 18:59 Output Total 300 Balance -300 - Medications Medications: Current Medications Albuterol/Ipratropium (Duoneb 3 Mg/0.5 Mg (3 Ml) Ud) 3 ml IH Q2H PRN PRN Reason: Shortness of Breath Last Admin: 06/20/18 22:09 Dose: 3 ml Albuterol/Ipratropium (Duoneb 3 Mg/0.5 Mg (3 Ml) Ud) 3 ml IH [id number] [facility] Last Admin: 06/22/18 13:04 Dose: 3 ml Aspirin (Aspirin Chewable) 81 mg PEG DAILY [facility] Last Admin: 06/22/18 11:13 Dose: 81 mg Atorvastatin Calcium (Lipitor) 80 mg PEG DIN [facility] Last Admin: 06/21/18 18:15 Dose: 80 mg Carbidopa/Levodopa (Sinemet) 1 tab PEG 1100,1600 [facility] Last Admin: 06/22/18 11:15 Dose: 1 tab Carbidopa/Levodopa (Sinemet 10/100) 2 tab PO 0700 [facility] Last Admin: 06/22/18 11:15 Dose: 2 tab Clopidogrel Bisulfate (Plavix) 75 mg PO DAILY [facility] Last Admin: 06/22/18 11:13 Dose: 75 mg Enoxaparin Sodium (Lovenox) 40 mg SC DAILY [facility]; Protocol Last Admin: 06/22/18 11:13 Dose: 40 mg Hydrochlorothiazide (Hydrodiuril) 12.5 mg PEG DAILY [facility] Last Admin: 06/22/18 11:04 Dose: Not Given Cefepime HCl (Maxipime 2gm) 2 gm in 100 mls @ 100 mls/hr IVPB Q8 [facility]; Protocol Stop: 06/25/18 14:01 Last Admin: 06/22/18 13:50 Dose: 100 mls/hr Lisinopril (Zestril) 10 mg PEG DAILY [facility] Last Admin: 06/22/18 11:04 Dose: Not Given Pantoprazole Sodium (Protonix Inj) 40 mg IVP DAILY [facility] Last Admin: 06/22/18 11:13 Dose: 40 mg - Labs Labs: 06/22/18 06:40 06/22/18 06:40 Attending/Attestation - Attestation I have personally seen and examined this patient.: Yes I have fully participated in the care of the patient.: Yes I have reviewed all pertinent clinical information, including history, physical exam and plan: Yes Notes (Text): 06/22/18 16:33 62 year old male with past medical history of hypertension, dyslipidemia, Park inson's disease and recent CVA s/p trach s/p PEG and s/p suprapubic catheter who presented with increased secretions from trach. Tracheal cultures is growing Klebsiella Pneumonia and Serratia Marcescens. CXR is negative. Continue with iv antibiotics as per ID. Patient has been afebrile x [address] head, MRI brain, MRA head, and CT head/necks studies reviewed as above. Patient is on aspirin, lisinopril and statin. PT is following and recommending acute rehab. Will discuss with CMx/Sw regarding PT recommendations if patient qualifies for acute rehab; if not continue with PT until patient is cleared to go home with family support. Anh Beard MD Hospitalist.
[2018-06-23] MEDS: Albuterol-Ipratrop 3 mg / 0.5 (3 ml) UD IH SCH ×4 (02:03→19:25)
--- NOTE | 2018-06-23 03:18 | PN ---
DATE: 06/22/2018 SUBJECTIVE: The patient is seen in bed, in no acute distress, was seen earlier today in room 571. OBJECTIVE: VITAL SIGNS: Temperature is 98, blood pressure is 100/50, and respiratory rate of 16. HEENT: Unremarkable. NECK: Supple. LUNGS: Have decreased breath sounds. HEART: Normal S1 and S2. ABDOMEN: Soft and nontender. LABORATORY EXAMINATION: Reveals the patient's white count is 5.9 and hemoglobin of 10. Chemistries are noted and the patient's procalcitonin 0.13 and urinalysis is reviewed. HIV is negative. Microbiology reveals yeast in the urine. There is Klebsiella and Serratia from the trach. REVIEW OF ORDERS: Reveal the patient to be on cefepime. ASSESSMENT AND PLAN: This is a 62-year-old male visiting [facility] and has a history of Parkinson's disease, hypertension, cerebrovascular accident and tracheostomy, suprapubic catheter with Klebsiella and Serratia tracheitis day, #6 of cefepime and doing well. We will discontinue the cefepime. The patient with chronic cerebrovascular accident, small acute infarct. We will discontinue the cefepime after today's last dose. The patient has been afebrile with a normal white count. Aren Webb MD
[2018-06-23] MEDS: Cefepime IV 2 gm in NS 2 GM/100 ML BAG IVPB SCH ×2 (05:38→17:40)
[2018-06-23 09:37] LABS: BASO # 0.02 K/mm3 (0.0-2.0); BASO % 0.3 % (0.0-3.0); EOS % 0.6 % (1.5-5.0); HEMOGLOBIN 10.9 g/dL (14.0-18.0); LYMPH # 1.1 (1.2-3.4); LYMPH % 16.3 % (22.0-35.0); MEAN CELL VOLUME 90.4 fl (80.0-105.0); MEAN CORPUSCULAR HGB CONC 32.1 g/dl (31.0-37.0); MEAN PLATELET VOLUME 10.4 fl (7.0-11.0); MONO # 0.2 (0.1-0.6); MONO % 3.5 % (1.0-6.0); RBC 3.76 10^6/uL (3.5-6.1); RED CELL DISTRIBUTION WIDTH 13.2 % (11.5-14.5); WHITE BLOOD COUNT 6.8 10^3/uL (4.5-11.0)
[2018-06-23 09:53] LABS: ALB/GLOB RATIO 0.9 (1.1-1.8); ALBUMIN 3.1 g/dL (3.0-4.8); ALT/SGPT 15 U/L (7-56); AST/SGOT 21 U/L (17-59); BLOOD UREA NITROGEN 19 mg/dL (7-21); CALCIUM 8.5 mg/dL (8.4-10.5); GFR NON-AFRICAN AMERICAN > 60
[2018-06-23] MEDS: Enoxaparin 40 mg Syringe SC SCH (10:14)
--- NOTE | 2018-06-23 14:10 | CP.PCM.PN ---
<Babak Fofana - Last Filed: 06/23/18 14:06> Subjective - Date & Time of Evaluation Date of Evaluation: 06/23/18 Time of Evaluation: 10:45 - Subjective Subjective: Babak Fofana PGY1 [facility] Medicine Progress Note Patient seen and examined at bedside this morning. No acute events reported overnight. Patient denies any complaints at his time and is resting comfortably in bed. Discharge planning for home. Working with PT for ambulation/stairs exercise training. PT limited due to patient dizziness when standing. Objective - Vital Signs/Intake and Output Vital Signs (last 24 hours): Temp Pulse Resp BP Pulse Ox 98.5 F 99 H 18 147/63 95 06/23/18 06:00 06/23/18 06:00 06/23/18 06:00 06/23/18 06:00 06/23/18 06:00 Intake and Output: 06/23/18 06/23/18 06:59 18:59 Output Total 550 Balance -550 - Medications Medications: Current Medications Albuterol/Ipratropium (Duoneb 3 Mg/0.5 Mg (3 Ml) Ud) 3 ml IH Q2H PRN PRN Reason: Shortness of Breath Last Admin: 06/20/18 22:09 Dose: 3 ml Albuterol/Ipratropium (Duoneb 3 Mg/0.5 Mg (3 Ml) Ud) 3 ml IH [id number] [facility] Last Admin: 06/23/18 07:40 Dose: 3 ml Aspirin (Aspirin Chewable) 81 mg PEG DAILY [facility] Last Admin: 06/23/18 10:16 Dose: 81 mg Atorvastatin Calcium (Lipitor) 80 mg PEG DIN [facility] Last Admin: 06/22/18 18:36 Dose: 80 mg Carbidopa/Levodopa (Sinemet) 1 tab PEG 1100,1600 [facility] Last Admin: 06/22/18 18:36 Dose: 1 tab Carbidopa/Levodopa (Sinemet 10/100) 2 tab PO 0700 [facility] Last Admin: 06/23/18 10:15 Dose: 2 tab Clopidogrel Bisulfate (Plavix) 75 mg PO DAILY [facility] Last Admin: 06/23/18 10:15 Dose: 75 mg Enoxaparin Sodium (Lovenox) 40 mg SC DAILY [facility]; Protocol Last Admin: 06/23/18 10:14 Dose: 40 mg Hydrochlorothiazide (Hydrodiuril) 12.5 mg PEG DAILY [facility] Last Admin: 06/23/18 10:15 Dose: 12.5 mg Cefepime HCl (Maxipime 2gm) 2 gm in 100 mls @ 100 mls/hr IVPB Q8 [facility]; Protocol Stop: 06/25/18 14:01 Last Admin: 06/23/18 05:38 Dose: 100 mls/hr Lisinopril (Zestril) 10 mg PEG DAILY [facility] Last Admin: 06/23/18 10:15 Dose: 10 mg Pantoprazole Sodium (Protonix Inj) 40 mg IVP DAILY [facility] Last Admin: 06/23/18 10:14 Dose: 40 mg - Labs Labs: 06/23/18 09:20 06/23/18 09:20 - Constitutional Appears: Non-toxic - Head Exam Head Exam: ATRAUMATIC, NORMAL INSPECTION, NORMOCEPHALIC Additional comments: Tracheostomy tube in place, clean and non bleeding/draining - Eye Exam Eye Exam: EOMI, Normal appearance, PERRL Pupil Exam: NORMAL ACCOMODATION, PERRL - ENT Exam ENT Exam: Mucous Membranes Moist, Normal Exam - Neck Exam Additional comments: Tracheostomy tube in place, clean and non bleeding/draining - Respiratory Exam Respiratory Exam: Clear to Auscultation Bilateral, NORMAL BREATHING PATTERN, no respiratory distress - Cardiovascular Exam Cardiovascular Exam: REGULAR RHYTHM, no tachycardia - GI/Abdominal Exam GI & Abdominal Exam: Normal Bowel Sounds, Soft. PEG Tube in place, site is c/d/i. Suprapubic catheter in place site is c/d/i. absent: Tenderness, rebound, guarding - Extremities Exam Extremities exam: Positive for: normal inspection. 5/5 muscle strength in upper and lower extremities B/L - Neurological Exam Neurological exam: Awake, Alert, CN II-XII Intact, Moves all extremities without difficulty. No focal motor/sensory deficits noted. Resting tremor with masked facies present . - Psychiatric Exam Psychiatric exam: Normal Affect, Normal Mood - Skin Skin Exam: Dry, Intact, Normal Color, Warm Assessment and Plan - Assessment and Plan (Free Text) Assessment: 62 M with PMHx HTN, Parkinson's Disease, Recent CVA complicated by tracheostomy tube, PEG tube, Suprapubic catheter (Hospitalized 1 month ago in [facility] [place]) who presented to [facility] for mild shortness of breath with increased respiratory secretions due to recent tracheostomy tube placement and +Sputum Cultures. Patient has no focal neurological deficits. Neurology, Pulmonology, and ID are on consult. Patient's insurance recently terminated, will not qualify for home PT/nurse aid/services/rehab. Working with PT for stair/ambulation exercises. Discharge planning for home. Plan: Chronic CVA with Small Acute Infarct -PT recommending acute rehab/ HWS, however patient's insurance does qualify. Working with PT for discharge home with stair/ambulation exercises -06/18 MRI Brain: small 7mm acute infarct at R-cerebellar hemisphere. Chronic infarcts in joya and R-medulla. Chronic infarct in L-occipital lobe. -06/18 MRA Head: chronic occlusions -06/16 CT head: chronic lacunar infarctions in bilateral basal ganglia and chronic infarction in the left occipital. -06/16 CT Head/Neck: unremarkable -Carotid US: negative -Echo: EF 61%. Mod-severe aortic regurgitation. Bicuspid aortic valve. -continue aspirin, lipitor Respiratory Secretions - improved -2/ Recent Tracheostomy Tube Placement -patient has been afebrile -continue trach suctioning as needed -sputum cx positive for klebsiella, serratia marcescens -cepepime day 6, will need 4-7 days as per ID -repeat blood cultures negative for 3 days -urine culture growing yeast -continue chest PT, trach care -CXR 06/20 shows no active disease, no significant interval change compared to prior examination -aspiration precautions, HOB elevated -elevate head of bed -aspiration precautions -ID and pulmonology on consult Hx of HTN -continue HCTZ 12.5mg daily, Lisinopril 10mg daily Hx of HLD -continue Lipitor 80mg daily Hx of Parkinson's disease -continue Carbidopa-Levodopa, amantadine Hx PEG Tube -continue bolus feeds Hx Suprapubic Cath -monitor ppx: -Lovenox 40 SC daily -Protonix IVP daily Patient seen and case discussed with attending, Dr. Beard <Anh Beard - Last Filed: 06/23/18 14:54> Objective - Vital Signs/Intake and Output Vital Signs (last 24 hours): Temp Pulse Resp BP Pulse Ox 98.5 F 99 H 18 147/63 95 06/23/18 06:00 06/23/18 06:00 06/23/18 06:00 06/23/18 06:00 06/23/18 06:00 Intake and Output: 06/23/18 06/23/18 06:59 18:59 Output Total 550 Balance -550 - Medications Medications: Current Medications Albuterol/Ipratropium (Duoneb 3 Mg/0.5 Mg (3 Ml) Ud) 3 ml IH Q2H PRN PRN Reason: Shortness of Breath Last Admin: 06/20/18 22:09 Dose: 3 ml Albuterol/Ipratropium (Duoneb 3 Mg/0.5 Mg (3 Ml) Ud) 3 ml IH [id number] [facility] Last Admin: 06/23/18 14:30 Dose: 3 ml Aspirin (Aspirin Chewable) 81 mg PEG DAILY [facility] Last Admin: 06/23/18 10:16 Dose: 81 mg Atorvastatin Calcium (Lipitor) 80 mg PEG DIN [facility] Last Admin: 06/22/18 18:36 Dose: 80 mg Carbidopa/Levodopa (Sinemet) 1 tab PEG 1100,1600 [facility] Last Admin: 06/22/18 18:36 Dose: 1 tab Carbidopa/Levodopa (Sinemet 10/100) 2 tab PO 0700 [facility] Last Admin: 06/23/18 10:15 Dose: 2 tab Clopidogrel Bisulfate (Plavix) 75 mg PO DAILY [facility] Last Admin: 06/23/18 10:15 Dose: 75 mg Enoxaparin Sodium (Lovenox) 40 mg SC DAILY [facility]; Protocol Last Admin: 06/23/18 10:14 Dose: 40 mg Hydrochlorothiazide (Hydrodiuril) 12.5 mg PEG DAILY [facility] Last Admin: 06/23/18 10:15 Dose: 12.5 mg Cefepime HCl (Maxipime 2gm) 2 gm in 100 mls @ 100 mls/hr IVPB Q8 [facility]; Protocol Stop: 06/25/18 14:01 Last Admin: 06/23/18 05:38 Dose: 100 mls/hr Lisinopril (Zestril) 10 mg PEG DAILY [facility] Last Admin: 06/23/18 10:15 Dose: 10 mg Pantoprazole Sodium (Protonix Inj) 40 mg IVP DAILY [facility] Last Admin: 06/23/18 10:14 Dose: 40 mg - Labs Labs: 06/23/18 09:20 06/23/18 09:20 Attending/Attestation - Attestation I have personally seen and examined this patient.: Yes I have fully participated in the care of the patient.: Yes I have reviewed all pertinent clinical information, including history, physical exam and plan: Yes Notes (Text): 06/23/18 14:48 62 year old male with past medical history of hypertension, dyslipidemia, Parkinson's disease and recent CVA s/p trach s/p PEG and s/p suprapubic catheter who presented with increased secretions from trach. Tracheal cultures is g rowing Klebsiella Pneumonia and Serratia Marcescens. CXR is negative. Continue with iv antibiotics as per ID. CT head, MRI brain, MRA head, and CT head/necks studies reviewed as above. Patient is on aspirin, lisinopril and statin. PT is following and recommending acute rehab. However patient's insurance does not qualify for acute rehab. Continue with family education for trach/PEG care. Continue with physical therapy. D/c planning home with family support once cleared by PT. Anh Beard MD Hospitalist.
[2018-06-23] MEDS ORDERED: guaiFENesin 600 mg ER Tab PO STA (22:20)
[2018-06-23] MEDS ORDERED: Acetylcysteine 20% Inhal Soln (4ml) IH STA (22:32)
[2018-06-23] MEDS: Albuterol-Ipratrop 3 mg / 0.5 (3 ml) UD IH PRN (23:19)
--- NOTE | 2018-06-24 00:36 | PN ---
DATE: 06/23/2018 SUBJECTIVE: The patient is in bed, in no acute distress, nontoxic. OBJECTIVE: VITAL SIGNS: Temperature is 98, blood pressure is 110/50, respiratory rate is 18. HEENT: Unremarkable. NECK: Supple. LUNGS: Have decreased breath sounds. HEART: Normal S1 and S2. ABDOMEN: Soft and nontender. LABORATORY EXAMINATION: Reveals white count of 6.8, hemoglobin of 10, BUN of 19, creatinine of 0.5. Urinalysis is noted. HIV is negative. Microbiology reveals yeast. REVIEW OF ORDERS: Reveals the patient to be on cefepime. ASSESSMENT AND PLAN: This is a 62-year-old male who is living in [facility] [place], had cerebrovascular accident. The patient with history of Parkinson's disease. The patient has tracheostomy and suprapubic catheter that had Serratia tracheitis, day #7. We will discontinue the cefepime, today is day #7, no further antibiotics. Aren Webb MD
[2018-06-24 07:08] LABS: BASO # 0.02 K/mm3 (0.0-2.0); BASO % 0.3 % (0.0-3.0); EOS # 0.1 (0.0-0.7); EOS % 1.7 % (1.5-5.0); HEMOGLOBIN 10.7 g/dL (14.0-18.0); LYMPH # 1.2 (1.2-3.4); MEAN CELL VOLUME 89.6 fl (80.0-105.0); MEAN CORPUSCULAR HEMOGLOBIN 28.6 pg (25.0-35.0); MEAN CORPUSCULAR HGB CONC 31.9 g/dl (31.0-37.0); MEAN PLATELET VOLUME 10.2 fl (7.0-11.0); MONO # 0.4 (0.1-0.6); MONO % 5.1 % (1.0-6.0); RBC 3.74 10^6/uL (3.5-6.1); RED CELL DISTRIBUTION WIDTH 13.4 % (11.5-14.5); WHITE BLOOD COUNT 7.2 10^3/uL (4.5-11.0)
[2018-06-24 07:52] LABS: ALB/GLOB RATIO 0.9 (1.1-1.8); ALBUMIN 3.2 g/dL (3.0-4.8); ALT/SGPT 16 U/L (7-56); AST/SGOT 29 U/L (17-59); BLOOD UREA NITROGEN 19 mg/dL (7-21); CALCIUM 8.4 mg/dL (8.4-10.5); GFR NON-AFRICAN AMERICAN > 60
[2018-06-24] MEDS: Albuterol-Ipratrop 3 mg / 0.5 (3 ml) UD IH SCH ×3 (08:04→20:48)
[2018-06-24] MEDS: Enoxaparin 40 mg Syringe SC SCH (10:52)
--- NOTE | 2018-06-24 13:03 | CP.PCM.PN ---
<Babak Fofana - Last Filed: 06/24/18 12:53> Subjective - Date & Time of Evaluation Date of Evaluation: 06/24/18 Time of Evaluation: 09:55 - Subjective Subjective: Babak Fofana PGY1 [facility] Medicine Progress Note Patient seen and examined at bedside this morning. No acute events reported overnight. Patient is resting comfortably in bed and denies any complaints at this time. Patient able to walk down the hallway with PT yesterday. Will continue with PT for ambulation/stairs strengthening. Objective - Vital Signs/Intake and Output Vital Signs (last 24 hours): Temp Pulse Resp BP Pulse Ox 98.2 F 64 20 118/60 94 L 06/24/18 06:00 06/24/18 06:00 06/24/18 06:00 06/24/18 06:00 06/24/18 06:00 Intake and Output: 06/24/18 06/24/18 06:59 18:59 Output Total 600 Balance -600 - Medications Medications: Current Medications Albuterol/Ipratropium (Duoneb 3 Mg/0.5 Mg (3 Ml) Ud) 3 ml IH Q2H PRN PRN Reason: Shortness of Breath Last Admin: 06/23/18 23:19 Dose: 3 ml Albuterol/Ipratropium (Duoneb 3 Mg/0.5 Mg (3 Ml) Ud) 3 ml IH [id number] [facility] Last Admin: 06/24/18 08:04 Dose: 3 ml Aspirin (Aspirin Chewable) 81 mg PEG DAILY [facility] Last Admin: 06/24/18 10:51 Dose: 81 mg Atorvastatin Calcium (Lipitor) 80 mg PEG DIN [facility] Last Admin: 06/23/18 17:39 Dose: 80 mg Carbidopa/Levodopa (Sinemet) 1 tab PEG 1100,1600 [facility] Last Admin: 06/24/18 10:51 Dose: 1 tab Carbidopa/Levodopa (Sinemet 10/100) 2 tab PO 0700 [facility] Last Admin: 06/24/18 08:35 Dose: 2 tab Clopidogrel Bisulfate (Plavix) 75 mg PO DAILY [facility] Last Admin: 06/24/18 10:51 Dose: 75 mg Hydrochlorothiazide (Hydrodiuril) 12.5 mg PEG DAILY [facility] Last Admin: 06/23/18 10:15 Dose: 12.5 mg Lisinopril (Zestril) 10 mg PEG DAILY [facility] Last Admin: 06/24/18 10:50 Dose: 10 mg Pantoprazole Sodium (Protonix Inj) 40 mg IVP DAILY [facility] Last Admin: 06/24/18 10:50 Dose: 40 mg - Labs Labs: 06/24/18 06:45 06/24/18 06:45 - Constitutional Appears: Non-toxic - Head Exam Head Exam: ATRAUMATIC, NORMAL INSPECTION, NORMOCEPHALIC Additional comments: Tracheostomy tube in place, clean and non bleeding/draining - Eye Exam Eye Exam: EOMI, Normal appearance, PERRL Pupil Exam: NORMAL ACCOMODATION, PERRL - ENT Exam ENT Exam: Mucous Membranes Moist, Normal Exam - Neck Exam Additional comments: Tracheostomy tube in place, clean and non bleeding/draining - Respiratory Exam Respiratory Exam: Clear to Auscultation Bilateral, NORMAL BREATHING PATTERN, no respiratory distress - Cardiovascular Exam Cardiovascular Exam: REGULAR RHYTHM, no tachycardia - GI/Abdominal Exam GI & Abdominal Exam: Normal Bowel Sounds, Soft. PEG Tube in place, site is c/d/i. Suprapubic catheter in place site is c/d/i. absent: Tenderness, rebound, guarding - Extremities Exam Extremities exam: Positive for: normal inspection. 5/5 muscle strength in upper and lower extremities B/L - Neurological Exam Neurological exam: Awake, Alert, CN II-XII Intact, Moves all extremities without difficulty. No focal motor/sensory deficits noted. Resting tremor with masked facies present . - Psychiatric Exam Psychiatric exam: Normal Affect, Normal Mood - Skin Skin Exam: Dry, Intact, Normal Color, Warm Assessment and Plan - Assessment and Plan (Free Text) Assessment: 62 M with PMHx HTN, Parkinson's Disease, Recent CVA complicated by tracheostomy tube, PEG tube, Suprapubic catheter (Hospitalized 1 month ago in [facility] [place]) who presented to [facility] for mild shortness of breath with increased respiratory secretions due to recent tracheostomy tube placement and +Sputum Cultures. Patient has no focal neurological deficits. Neurology, Pulmonology, and ID are on consult. Patient's insurance recently terminated, will not qualify for home PT/nurse aid/services/rehab. Working with PT for stair/ambulation exercises. Will discharge home once patient is ready by PT. Plan: Chronic CVA with Small Acute Infarct -PT recommending acute rehab/ [facility], however patient's insurance does qualify. Working with PT for stair/ambulation exercises -will discharge home once patient comfortable with PT exercises -06/18 MRI Brain: small 7mm acute infarct at R-cerebellar hemisphere. Chronic infarcts in joya and R-medulla. Chronic infarct in L-occipital lobe. -06/18 MRA Head: chronic occlusions -06/16 CT head: chronic lacunar infarctions in bilateral basal ganglia and chronic infarction in the left occipital. -06/16 CT Head/Neck: unremarkable -Carotid US: negative -Echo: EF 61%. Mod-severe aortic regurgitation. Bicuspid aortic valve. -continue aspirin, lipitor Respiratory Secretions - improved -/ Recent Tracheostomy Tube Placement -patient has been afebrile -continue trach suctioning as needed -sputum cx positive for klebsiella, serratia marcescens -cepepime day 7, will need 4-7 days as per ID -repeat blood cultures negative for 4 days -urine culture growing yeast -continue chest PT, trach care -CXR 06/20 shows no active disease, no significant interval change compared to prior examination -aspiration precautions, HOB elevated -elevate head of bed -aspiration precautions -ID and pulmonology on consult Hx of HTN -continue HCTZ 12.5mg daily, Lisinopril 10mg daily -will consider decreasing lisinopril if BP low Hx of HLD -continue Lipitor 80mg daily Hx of Parkinson's disease -continue Carbidopa-Levodopa, amantadine Hx PEG Tube -continue bolus feeds Hx Suprapubic Cath -monitor ppx: -Lovenox 40 SC daily -Protonix IVP daily Patient seen and case discussed with attending, Dr. Beard <Anh Beard - Last Filed: 06/24/18 13:49> Objective - Vital Signs/Intake and Output Vital Signs (last 24 hours): Temp Pulse Resp BP Pulse Ox 98.2 F 64 20 118/60 94 L 06/24/18 06:00 06/24/18 06:00 06/24/18 06:00 06/24/18 06:00 06/24/18 06:00 Intake and Output: 06/24/18 06/24/18 06:59 18:59 Output Total 600 Balance -600 - Medications Medications: Current Medications Albuterol/Ipratropium (Duoneb 3 Mg/0.5 Mg (3 Ml) Ud) 3 ml IH Q2H PRN PRN Reason: Shortness of Breath Last Admin: 06/23/18 23:19 Dose: 3 ml Albuterol/Ipratropium (Duoneb 3 Mg/0.5 Mg (3 Ml) Ud) 3 ml IH [id number] [facility] Last Admin: 06/24/18 08:04 Dose: 3 ml Aspirin (Aspirin Chewable) 81 mg PEG DAILY [facility] Last Admin: 06/24/18 10:51 Dose: 81 mg Atorvastatin Calcium (Lipitor) 80 mg PEG DIN [facility] Last Admin: 06/23/18 17:39 Dose: 80 mg Carbidopa/Levodopa (Sinemet) 1 tab PEG 1100,1600 [facility] Last Admin: 06/24/18 10:51 Dose: 1 tab Carbidopa/Levodopa (Sinemet 10/100) 2 tab PO 0700 [facility] Last Admin: 06/24/18 08:35 Dose: 2 tab Clopidogrel Bisulfate (Plavix) 75 mg PO DAILY [facility] Last Admin: 06/24/18 10:51 Dose: 75 mg Hydrochlorothiazide (Hydrodiuril) 12.5 mg PEG DAILY [facility] Last Admin: 06/23/18 10:15 Dose: 12.5 mg Lisinopril (Zestril) 10 mg PEG DAILY [facility] Last Admin: 06/24/18 10:50 Dose: 10 mg Pantoprazole Sodium (Protonix Inj) 40 mg IVP DAILY [facility] Last Admin: 06/24/18 10:50 Dose: 40 mg - Labs Labs: 06/24/18 06:45 06/24/18 06:45 Attending/Attestation - Attestation I have personally seen and examined this patient.: Yes I have fully participated in the care of the patient.: Yes I have reviewed all pertinent clinical information, including history, physical exam and plan: Yes Notes (Text): 06/24/18 13:46 62 year old male with past medical history of hypertension, dyslipidemia, Parkinson's disease and recent CVA s/p trach s/p PEG and s/p suprapubic catheter who presented with increased secretions from trach. Tracheal cultures is grow ing Klebsiella Pneumonia and Serratia Marcescens. CXR is negative. Patient is s/p antibiotics. CT head, MRI brain, MRA head, and CT head/necks studies reviewed as above. Patient is on aspirin, lisinopril and statin. HCTZ was discontinued yesterday secondary to low normal blood pressure. PT is following and recommending acute rehab. However patient's insurance does not qualify for acute rehab. Continue with family education for trach/PEG care. Continue with physical therapy. D/c planning home with family support once cleared by PT. Anh Beard MD Hospitalist.
--- NOTE | 2018-06-24 22:24 | PN ---
DATE: 06/24/2018 SUBJECTIVE: The patient is in bed in no acute distress, nontoxic. The patient was seen early this morning in room 571, bed 1, family members sleep on the chair. PHYSICAL EXAMINATION: VITAL SIGNS: Temperature 98, blood pressure is 117/60, respiratory rate of 18. HEENT: Unremarkable. NECK: Supple. LUNGS: Have decreased breath sounds. HEART: Normal S1, S2. ABDOMEN: Soft. LABORATORY EXAMINATION: Reveals a white count of 7.2, hemoglobin of 10, BUN of 19, creatinine 0.5. Urinalysis is noted. Serology is reviewed. Microbiology reveals yeast in the urine. The blood cultures are negative. MEDICATIONS: Currently, the patient is off of antibiotics. ASSESSMENT AND PLAN: This is a 62-year-old male who was in [place], had cerebrovascular accident and had Parkinson's disease and had a tracheostomy, suprapubic catheter and percutaneous endoscopic gastrostomy tube placement, completed antibiotics with cefepime for tracheitis, currently off of antibiotics, afebrile. Normal white count and the patient is at risk for developing nosocomial infections and the patient does have Parkinson's disease, the recent cerebrovascular accident complicated by tracheostomy tube and percutaneous endoscopic gastrostomy tube placement, suprapubic catheter. The patient was in [place] for 1 month. Aren Webb MD
[2018-06-25] MEDS: Albuterol-Ipratrop 3 mg / 0.5 (3 ml) UD IH SCH ×4 (02:13→19:10)
[2018-06-25 07:13] LABS: BASO # 0.01 K/mm3 (0.0-2.0); BASO % 0.2 % (0.0-3.0); EOS # 0.1 (0.0-0.7); EOS % 1.1 % (1.5-5.0); HEMOGLOBIN 10.1 g/dL (14.0-18.0); LYMPH # 1.5 (1.2-3.4); LYMPH % 23.8 % (22.0-35.0); MEAN CELL VOLUME 89.9 fl (80.0-105.0); MEAN CORPUSCULAR HEMOGLOBIN 28.5 pg (25.0-35.0); MEAN CORPUSCULAR HGB CONC 31.7 g/dl (31.0-37.0); MEAN PLATELET VOLUME 10.3 fl (7.0-11.0); MONO # 0.4 (0.1-0.6); MONO % 5.7 % (1.0-6.0); RBC 3.55 10^6/uL (3.5-6.1); RED CELL DISTRIBUTION WIDTH 13.6 % (11.5-14.5); WHITE BLOOD COUNT 6.3 10^3/uL (4.5-11.0)
[2018-06-25 07:26] LABS: ALB/GLOB RATIO 0.8 (1.1-1.8); ALT/SGPT 11 U/L (7-56); AST/SGOT 26 U/L (17-59); BLOOD UREA NITROGEN 22 mg/dL (7-21); CALCIUM 8.1 mg/dL (8.4-10.5); GFR NON-AFRICAN AMERICAN > 60
[2018-06-25] MEDS ORDERED: Potassium Chloride 40 mEq/30 ml LIQ UD PO ONE (08:28)
--- NOTE | 2018-06-25 16:12 | CP.PCM.PN ---
<Babak Fofana - Last Filed: 06/25/18 16:08> Subjective - Date & Time of Evaluation Date of Evaluation: 06/25/18 Time of Evaluation: 10:30 - Subjective Subjective: Babak Fofana PGY1 [facility] Medicine Progress Note Patient seen and examined at bedside this morning. No acute events reported overnight. Patient denies any complaints at this time. Patient had limited ambulation with PT today. and daughter of patient were educated about tracheostomy and PEG tube care by staff. Will continue with PT until functionally able to be discharged home. Objective - Vital Signs/Intake and Output Vital Signs (last 24 hours): Temp Pulse Resp BP Pulse Ox 98.7 F 87 18 100/49 L 95 06/25/18 14:00 06/25/18 14:00 06/25/18 14:00 06/25/18 14:00 06/25/18 14:00 Intake and Output: 06/25/18 06/25/18 06:59 18:59 Output Total 400 Balance -400 - Medications Medications: Current Medications Albuterol/Ipratropium (Duoneb 3 Mg/0.5 Mg (3 Ml) Ud) 3 ml IH Q2H PRN PRN Reason: Shortness of Breath Last Admin: 06/23/18 23:19 Dose: 3 ml Albuterol/Ipratropium (Duoneb 3 Mg/0.5 Mg (3 Ml) Ud) 3 ml IH [id number] [facility] Last Admin: 06/25/18 13:20 Dose: 3 ml Aspirin (Aspirin Chewable) 81 mg PEG DAILY [facility] Last Admin: 06/25/18 09:57 Dose: 81 mg Atorvastatin Calcium (Lipitor) 80 mg PEG DIN [facility] Last Admin: 06/24/18 17:05 Dose: 80 mg Carbidopa/Levodopa (Sinemet) 1 tab PEG 1100,1600 [facility] Last Admin: 06/25/18 12:22 Dose: 1 tab Carbidopa/Levodopa (Sinemet 10/100) 2 tab PO 0700 [facility] Last Admin: 06/25/18 09:57 Dose: 2 tab Clopidogrel Bisulfate (Plavix) 75 mg PO DAILY [facility] Last Admin: 06/25/18 09:57 Dose: 75 mg Hydrochlorothiazide (Hydrodiuril) 12.5 mg PEG DAILY [facility] Last Admin: 06/23/18 10:15 Dose: 12.5 mg Lisinopril (Zestril) 10 mg PEG DAILY [facility] Last Admin: 06/25/18 09:57 Dose: 10 mg Pantoprazole Sodium (Protonix Inj) 40 mg IVP DAILY [facility] Last Admin: 06/25/18 09:57 Dose: 40 mg - Labs Labs: 06/25/18 07:00 06/25/18 07:00 - Constitutional Appears: Non-toxic - Head Exam Head Exam: ATRAUMATIC, NORMAL INSPECTION, NORMOCEPHALIC Additional comments: Tracheostomy tube in place, clean and non bleeding/draining - Eye Exam Eye Exam: EOMI, Normal appearance, PERRL Pupil Exam: NORMAL ACCOMODATION, PERRL - ENT Exam ENT Exam: Mucous Membranes Moist, Normal Exam - Neck Exam Additional comments: Tracheostomy tube in place, clean and non bleeding/draining - Respiratory Exam Respiratory Exam: Clear to Auscultation Bilateral, NORMAL BREATHING PATTERN, no respiratory distress - Cardiovascular Exam Cardiovascular Exam: REGULAR RHYTHM, no tachycardia - GI/Abdominal Exam GI & Abdominal Exam: Normal Bowel Sounds, Soft. PEG Tube in place, site is c/d/i. Suprapubic catheter in place site is c/d/i. absent: Tenderness, rebound, guarding - Extremities Exam Extremities exam: Positive for: normal inspection. 5/5 muscle strength in upper and lower extremities B/L - Neurological Exam Neurological exam: Awake, Alert, CN II-XII Intact, Moves all extremities without difficulty. No focal motor/sensory deficits noted. Resting tremor with masked facies present . - Psychiatric Exam Psychiatric exam: Normal Affect, Normal Mood - Skin Skin Exam: Dry, Intact, Normal Color, Warm Assessment and Plan - Assessment and Plan (Free Text) Assessment: 62 M with PMHx HTN, Parkinson's Disease, Recent CVA complicated by tracheostomy tube, PEG tube, Suprapubic catheter (Hospitalized 1 month ago in [facility] [place]) [place] [facility] [place] with increased respiratory secretions due to recent tracheostomy tube placement and +Sputum Cultures. Patient has no focal neurological deficits. Neurology, Pulmonology, and ID are on consult. Patient's insurance recently terminated, will not qualify for home PT/nurse aid/services/rehab. Patient to have physical therapy until functionally clear to go home. Family educated on trach and PEG tube care. Plan: Chronic CVA with Small Acute Infarct -PT recommending acute rehab/ [facility], however patient's insurance does qualify at this time -Continue to work with PT for improvement in functional status including ambulation and walking stairs -will discharge home once functionally ready -06/18 MRI Brain: small 7mm acute infarct at R-cerebellar hemisphere. Chronic infarcts in joya and R-medulla. Chronic infarct in L-occipital lobe. -06/18 MRA Head: chronic occlusions -06/16 CT head: chronic lacunar infarctions in bilateral basal ganglia and chronic infarction in the left occipital. -06/16 CT Head/Neck: unremarkable -Carotid US: negative -Echo: EF 61%. Mod-severe aortic regurgitation. Bicuspid aortic valve. -continue aspirin, lipitor Respiratory Secretions - improved -2/ Recent Tracheostomy Tube Placement -family educated on trach care -patient has been afebrile -continue trach suctioning as needed -sputum cx positive for klebsiella, serratia marcescens -now off antibiotics -repeat blood cultures negative for 5 days -urine culture growing yeast -continue chest PT, trach care -CXR 06/20 shows no active disease, no significant interval change compared to prior examination -aspiration precautions, HOB elevated -elevate head of bed -ID and pulmonology on consult Hx of HTN -continue HCTZ 12.5mg daily, Lisinopril 10mg daily -will consider decreasing lisinopril if BP low - continue to monitor Hx of HLD -continue Lipitor 80mg daily Hx of Parkinson's disease -continue Carbidopa-Levodopa, amantadine Hx PEG Tube -continue bolus feeds -family educated on PEG tube care Hx Suprapubic Cath -monitor -f/u outpatient urology upon discharge ppx: -protonix Patient seen and case discussed with attending, Dr. Beard <Anh Beard - Last Filed: 06/25/18 16:45> Objective - Vital Signs/Intake and Output Vital Signs (last 24 hours): Temp Pulse Resp BP Pulse Ox 98.7 F 87 18 100/49 L 95 06/25/18 14:00 06/25/18 14:00 06/25/18 14:00 06/25/18 14:00 06/25/18 14:00 Intake and Output: 06/25/18 06/25/18 06:59 18:59 Output Total 400 Balance -400 - Medications Medications: Current Medications Albuterol/Ipratropium (Duoneb 3 Mg/0.5 Mg (3 Ml) Ud) 3 ml IH Q2H PRN PRN Reason: Shortness of Breath Last Admin: 06/23/18 23:19 Dose: 3 ml Albuterol/Ipratropium (Duoneb 3 Mg/0.5 Mg (3 Ml) Ud) 3 ml IH [id number] [facility] Last Admin: 06/25/18 13:20 Dose: 3 ml Aspirin (Aspirin Chewable) 81 mg PEG DAILY [facility] Last Admin: 06/25/18 09:57 Dose: 81 mg Atorvastatin Calcium (Lipitor) 80 mg PEG DIN [facility] Last Admin: 06/24/18 17:05 Dose: 80 mg Carbidopa/Levodopa (Sinemet) 1 tab PEG 1100,1600 [facility] Last Admin: 06/25/18 12:22 Dose: 1 tab Carbidopa/Levodopa (Sinemet 10/100) 2 tab PO 0700 [facility] Last Admin: 06/25/18 09:57 Dose: 2 tab Clopidogrel Bisulfate (Plavix) 75 mg PO DAILY [facility] Last Admin: 06/25/18 09:57 Dose: 75 mg Hydrochlorothiazide (Hydrodiuril) 12.5 mg PEG DAILY [facility] Last Admin: 06/23/18 10:15 Dose: 12.5 mg Lisinopril (Zestril) 10 mg PEG DAILY [facility] Last Admin: 06/25/18 09:57 Dose: 10 mg Pantoprazole Sodium (Protonix Inj) 40 mg IVP DAILY [facility] Last Admin: 06/25/18 09:57 Dose: 40 mg - Labs Labs: 06/25/18 07:00 06/25/18 07:00 Attending/Attestation - Attestation I have personally seen and examined this patient.: Yes I have fully participated in the care of the patient.: Yes I have reviewed all pertinent clinical information, including history, physical exam and plan: Yes Notes (Text): 06/25/18 16:44 62 year old male with past medical history of hypertension, dyslipidemia, Parkinson's disease and recent CVA s/p trach s/p PEG and s/p suprapubic catheter who presented with increased secretions from trach. Tracheal cultures was growing Klebsiella Pneumonia and Serratia Marcescens. CXR is negative. Patient is s/p antibiotics. CT head, MRI brain, MRA head, and CT head/necks studies reviewed as above. Patient is on aspirin, lisinopril and statin. HCTZ was discontinued secondary to low normal blood pressure. PT is following and recommending acute rehab. However patient's insurance does not qualify for acute rehab. Continue with family education for trach/PEG care. Continue with physical therapy with stairs training. D/c planning home with family support once cleared by PT. Will replete and repeat potassium. Family is at bedside and questions were answered. Anh Beard MD Hospitalist.
--- NOTE | 2018-06-25 20:17 | PN ---
DATE: 06/25/2018 SUBJECTIVE: The patient is in bed in no acute distress and nontoxic. PHYSICAL EXAMINATION VITAL SIGNS: On exam temperature is 98, blood pressure is 100/40, respiratory of 18 and heart rate of 87. HEENT: Unremarkable. NECK: Supple. LUNGS: Have decreased breath sounds. HEART: Normal S1 and S2. ABDOMEN: Soft. The patient was seen early this morning in 571, bed 1. The patient's family is asleep in the chair next to the bed. Microbiology is noted. Review of orders reveals the patient to be off of antibiotics. ASSESSMENT AND PLAN: This is a 62-year-old male who is a [place] had cerebrovascular accident [place] with trache suprapubic catheter, percutaneous endoscopic gastrostomy tube placed in a patient with Parkinson's, currently now off of antibiotics, afebrile and the patient is at risk for developing nosocomial pneumonia. Aren Webb MD
[2018-06-26] MEDS: Albuterol-Ipratrop 3 mg / 0.5 (3 ml) UD IH SCH ×4 (01:18→21:15)
[2018-06-26 07:52] LABS: BASO # 0.02 K/mm3 (0.0-2.0); BASO % 0.2 % (0.0-3.0); EOS # 0.1 (0.0-0.7); EOS % 1.2 % (1.5-5.0); HEMOGLOBIN 10.7 g/dL (14.0-18.0); LYMPH # 1.5 (1.2-3.4); MEAN CELL VOLUME 91.5 fl (80.0-105.0); MEAN CORPUSCULAR HEMOGLOBIN 28.4 pg (25.0-35.0); MEAN PLATELET VOLUME 10.6 fl (7.0-11.0); MONO # 0.4 (0.1-0.6); RBC 3.77 10^6/uL (3.5-6.1); RED CELL DISTRIBUTION WIDTH 14.1 % (11.5-14.5); WHITE BLOOD COUNT 8.1 10^3/uL (4.5-11.0)
[2018-06-26 08:06] LABS: ALB/GLOB RATIO 0.9 (1.1-1.8); ALBUMIN 3.1 g/dL (3.0-4.8); ALT/SGPT 10 U/L (7-56); AST/SGOT 31 U/L (17-59); BLOOD UREA NITROGEN 20 mg/dL (7-21); CALCIUM 8.5 mg/dL (8.4-10.5); GFR NON-AFRICAN AMERICAN > 60
--- NOTE | 2018-06-26 09:35 | PN ---
DATE: 06/26/2018 SUBJECTIVE: The patient is in bed in no acute distress, nontoxic. PHYSICAL EXAMINATION: VITAL SIGNS: Temperature is 98, blood pressure is 120/70, respiratory rate of 16. HEENT: Unremarkable. NECK: Supple. LUNGS: Have decreased breath sounds. HEART: Normal S1, S2. ABDOMEN: Soft, nontender. LABORATORY EXAMINATION: Reveals a white count of 6.3. Chemistries are noted. Urinalysis is noted. Serology is reviewed. ASSESSMENT AND PLAN: This is a 62-year-old male who is [place] and [place] the patient had a cerebrovascular accident and had trach and suprapubic catheter. Percutaneous endoscopic gastrostomy tube placement. The patient with history of Parkinson's disease and was admitted. This morning the patient was seen. The patient's family members sleep in the chair. Currently off of antibiotics, afebrile. The patient is at risk for developing nosocomial infections. Aren Webb MD
--- NOTE | 2018-06-26 11:21 | RAD ---
Date of service: 06/26/2018 HISTORY: r/o infiltrate COMPARISON: 06/20/2018 FINDINGS: LUNGS: The lungs are well inflated. There is haziness in the right lower lobe. There is linear atelectasis in the right upper lobe and left lung base. PLEURA: Interval development of moderate right pleural effusion. No pneumothorax. CARDIOVASCULAR: The heart is normal in size. No aortic atherosclerotic calcifications present. OSSEOUS STRUCTURES: Within normal limits for the patient's age. VISUALIZED UPPER ABDOMEN: Normal. OTHER FINDINGS: None. IMPRESSION: Interval development of moderate right pleural effusion with presumable compressive atelectasis in the right lower lobe.
--- NOTE | 2018-06-26 12:12 | CP.PCM.PN ---
<Lee Cote - Last Filed: 06/26/18 12:08> Subjective - Date & Time of Evaluation Date of Evaluation: 06/26/18 Time of Evaluation: 12:08 - Subjective Subjective: Lee Cote, PGY-1, Internal Medicine Progress Note for Dr. Beard Patient seen and evaluated at bedside. Patient desaturated to 87% with ambulation and had diffuse secretions from tracheostomy. 12-point ROS was unattainable due to patient's tracheostomy status. Objective - Vital Signs/Intake and Output Vital Signs (last 24 hours): Temp Pulse Resp BP Pulse Ox 98.1 F 69 17 105/53 L 96 06/26/18 06:00 06/26/18 10:58 06/26/18 06:00 06/26/18 10:58 06/26/18 06:00 Intake and Output: 06/26/18 06/26/18 06:59 18:59 Intake Total 0 Output Total 825 Balance -825 - Medications Medications: Current Medications Albuterol/Ipratropium (Duoneb 3 Mg/0.5 Mg (3 Ml) Ud) 3 ml IH Q2H PRN PRN Reason: Shortness of Breath Last Admin: 06/23/18 23:19 Dose: 3 ml Albuterol/Ipratropium (Duoneb 3 Mg/0.5 Mg (3 Ml) Ud) 3 ml IH [id number] [facility] Last Admin: 06/26/18 08:15 Dose: 3 ml Aspirin (Aspirin Chewable) 81 mg PEG DAILY [facility] Last Admin: 06/26/18 10:59 Dose: 81 mg Atorvastatin Calcium (Lipitor) 80 mg PEG DIN [facility] Last Admin: 06/25/18 16:55 Dose: 80 mg Carbidopa/Levodopa (Sinemet) 1 tab PEG 1100,1600 [facility] Last Admin: 06/26/18 11:00 Dose: 1 tab Carbidopa/Levodopa (Sinemet 10/100) 2 tab PEG 0700 [facility] Last Admin: 06/26/18 08:22 Dose: 2 tab Clopidogrel Bisulfate (Plavix) 75 mg PEG DAILY [facility] Last Admin: 06/26/18 10:58 Dose: 75 mg Hydrochlorothiazide (Hydrodiuril) 12.5 mg PEG DAILY [facility] Last Admin: 06/23/18 10:15 Dose: 12.5 mg Lisinopril (Zestril) 10 mg PEG DAILY [facility] Last Admin: 06/26/18 10:58 Dose: 10 mg Pantoprazole Sodium (Protonix Inj) 40 mg IVP DAILY [facility] Last Admin: 06/26/18 10:57 Dose: 40 mg - Labs Labs: 06/26/18 07:01 06/26/18 07:01 - Constitutional Appears: Non-toxic - Head Exam Head Exam: ATRAUMATIC, NORMAL INSPECTION, NORMOCEPHALIC Additional comments: Tracheostomy tube in place, clean and non bleeding/draining extensively - Eye Exam Eye Exam: EOMI, Normal appearance, PERRL Pupil Exam: NORMAL ACCOMODATION, PERRL - ENT Exam ENT Exam: Mucous Membranes Moist, Normal Exam - Neck Exam Additional comments: Tracheostomy tube in place, clean and non bleeding/draining - Respiratory Exam Respiratory Exam: Clear to Auscultation Bilateral, NORMAL BREATHING PATTERN, no respiratory distress - Cardiovascular Exam Cardiovascular Exam: REGULAR RHYTHM, no tachycardia - GI/Abdominal Exam GI & Abdominal Exam: Normal Bowel Sounds, Soft. PEG Tube in place, site is c/d/i. Suprapubic catheter in place site is c/d/i. absent: Tenderness, rebound, guarding - Extremities Exam Extremities exam: Positive for: normal inspection. 5/5 muscle strength in upper and lower extremities B/L - Neurological Exam Neurological exam: Awake, Alert, CN II-XII Intact, Moves all extremities without difficulty. No focal motor/sensory deficits noted. Resting tremor with masked facies present . - Psychiatric Exam Psychiatric exam: Normal Affect, Normal Mood - Skin Skin Exam: Dry, Intact, Normal Color, Warm Assessment and Plan - Assessment and Plan (Free Text) Assessment: 62 male with past medical history of hypertension, Parkinson's Disease, Recent CVA complicated by tracheostomy tube, PEG tube, Suprapubic catheter (Hospitalized 1 month ago in [place]) presented to [facility] [place] for mild shortness of breath with increased respiratory secretions due to recent tracheostomy tube placement and positive sputum Cultures. Patient has no focal neurological deficits. Neurology, Pulmonology, and ID are on consult. Patient's insurance recently terminated, will not qualify for home PT/nurse aid/services/rehab. Patient is to have physical therapy until functionally clear to go home. Family educated on tracheostomy and PEG tube care. Plan: Chronic CVA with small acute infarct -Physical therapy is recommending acute rehabilitation/Home with Services, but patient's insurance does not qualify -Patient will continue to work with PT for improvement in functional status including ambulation -06/18 MRI Brain: small acute infarct at right cerebellar hemisphere. Chronic infarcts in joya and right medulla. Chronic infarct in left occipital lobe -06/18 MRA Head: chronic occlusions -06/16: CT Head: chronic lacunar infarctions in bilateral basal ganglia and chronic infarction in the left occipital -06/16 CT Head and Neck: unremarkable -Carotid ultrasound: negative -HgbA1c: 5 -Lipid panel unremarkable -TSH unremarkable -Echocardiogram: EF 61%, moderate severe aortic regurgitation, bicuspid aortic valve -Continue aspirin, plavix, and lipitor Right pleural effusion -CXR 06/26: moderate right pleural effusion with presumable compressive atelectasis in right lower lobe -Pulmonary contacted and will follow recommendations as this is a new finding Respiratory secretions -03/20 to recent tracheostomy tube placement due to CVA leading to dysphagia increasing risk of aspiration -Sputum culture on 06/17: Klebsiella Pneumonia and Serratia Marcescens. Resistant to ampicillin, bactrim, and cefazolin -Blood culture from 06/15 and 06/20 negative -Urine culture 06/20: yeast species. UA shows unlikely UTI -CXR 06/20 shows no active disease, no change compared to prior exam -Now off antibiotics -Continue with chest PT, tracheostomy care -Aspiration precautions, HOB elevated -Duonebs scheduled and PRN -ID and Pulmonology on consult Hypertension -Continue with lisinopril -Stopped HCTZ Hyperlipidemia -Continue with lipitor 80 mg daily History of Parkinson's disease -Continue with levodopa/carbidopa, amantidine PEG tube placement 03/20 to dysphagia from CVA -Continue bolus feeds -Family educated on PEG tube care Suprapubic catheterization -Follow up outpatient on discharge with urology GI prophylaxis: protonix Patient plan discussed with Dr. Beard. <Anh Beard - Last Filed: 06/26/18 12:55> Objective - Vital Signs/Intake and Output Vital Signs (last 24 hours): Temp Pulse Resp BP Pulse Ox 98.1 F 69 17 105/53 L 96 06/26/18 06:00 06/26/18 10:58 06/26/18 06:00 06/26/18 10:58 06/26/18 06:00 Intake and Output: 06/26/18 06/26/18 06:59 18:59 Intake Total 0 Output Total 825 Balance -825 - Medications Medications: Current Medications Albuterol/Ipratropium (Duoneb 3 Mg/0.5 Mg (3 Ml) Ud) 3 ml IH Q2H PRN PRN Reason: Shortness of Breath Last Admin: 06/23/18 23:19 Dose: 3 ml Albuterol/Ipratropium (Duoneb 3 Mg/0.5 Mg (3 Ml) Ud) 3 ml IH [id number] [facility] Last Admin: 06/26/18 08:15 Dose: 3 ml Aspirin (Aspirin Chewable) 81 mg PEG DAILY [facility] Last Admin: 06/26/18 10:59 Dose: 81 mg Atorvastatin Calcium (Lipitor) 80 mg PEG DIN [facility] Last Admin: 06/25/18 16:55 Dose: 80 mg Carbidopa/Levodopa (Sinemet) 1 tab PEG 1100,1600 [facility] Last Admin: 06/26/18 11:00 Dose: 1 tab Carbidopa/Levodopa (Sinemet 10/100) 2 tab PEG 0700 [facility] Last Admin: 06/26/18 08:22 Dose: 2 tab Clopidogrel Bisulfate (Plavix) 75 mg PEG DAILY [facility] Last Admin: 06/26/18 10:58 Dose: 75 mg Hydrochlorothiazide (Hydrodiuril) 12.5 mg PEG DAILY [facility] Last Admin: 06/23/18 10:15 Dose: 12.5 mg Lisinopril (Zestril) 10 mg PEG DAILY [facility] Last Admin: 06/26/18 10:58 Dose: 10 mg Pantoprazole Sodium (Protonix Inj) 40 mg IVP DAILY [facility] Last Admin: 06/26/18 10:57 Dose: 40 mg - Labs Labs: 06/26/18 07:01 06/26/18 07:01 Attending/Attestation - Attestation I have personally seen and examined this patient.: Yes I have fully participated in the care of the patient.: Yes I have reviewed all pertinent clinical information, including history, physical exam and plan: Yes Notes (Text): 06/26/18 12:51 62 year old male with past medical history of hypertension, dyslipidemia, Parkinson's disease and recent CVA s/p trach s/p PEG and s/p suprapubic catheter who presented with increased secretions from trach. Tracheal cultures was g rowing Klebsiella Pneumonia and Serratia Marcescens. CXR is negative. Patient is s/p antibiotics. During ambulation yesterday he desaturated to 87%. Repeat chest xray today shows interval development of moderate right pleural effusion. Pulmonary and ID follow up requested. CT head, MRI brain, MRA head, and CT head/necks studies reviewed as above. Patient is on aspirin, plavix, lisinopril and statin. HCTZ was discontinued secondary to low normal blood pressure. PT is following and recommending acute rehab. However patient's insurance does not qualify for acute rehab. Continue with physical therapy with stairs training with d/c planning home with family support once cleared by PT. Continue with family education for trach/PEG care. Family is at bedside and questions were answered. Anh Beard MD Hospitalist.
[2018-06-26 13:06] LABS: INR 1.26; PARTIAL THROMBOPLASTIN TIME 33.8 Seconds (26.9-38.3); PROTHROMBIN TIME 14.2 SECONDS (9.4-12.5)
--- NOTE | 2018-06-26 22:23 | CON ---
DATE OF CONSULTATION: 06/26/2018 HISTORY OF PRESENT ILLNESS: The patient is seen and examined at bedside. He is comfortable. He has a trach intact. He is nonverbally communicating. He is not in respiratory or otherwise distress. MEDICATIONS: DuoNeb, Lipitor, carbidopa/levodopa, Plavix, lisinopril, Protonix. PHYSICAL EXAMINATION: VITAL SIGNS: Temperature 98.1, blood pressure 105/53, heart rate 69, respiratory rate 17, oxygen saturation 96% on room air. ENT: Head and neck atraumatic. LUNGS: Decreased breath sounds on the right side. HEART: Regular rate and rhythm. S1 and S2 normal. ABDOMEN: Soft, nontender, nondistended. MUSCULOSKELETAL: No C/C/E. NEURO: The patient moves all extremities spontaneously. SKIN: Moist. PSYCH: The patient is alert, awake and oriented x3. LABORATORY DATA: WBC 8.1, hemoglobin 10.7, platelet count 262,000. Sodium 143, potassium 3.6, chloride 105, carbon dioxide 32, BUN 20, creatinine 0.4, glucose 116. Chest x-ray showed moderate right pleural effusion with presumable compression of atelectasis in the right lower lobe. ASSESSMENT AND PLAN: This is a 62-year-old gentleman who is recovering from sepsis secondary to gram negative tracheobronchitis. He is afebrile and white cell count is within normal limits. He is comfortable. His chest x-ray up until now has been without acute pulmonary disease. The patient completed course of cefepime and vancomycin. There is interval development of a moderate right pleural effusion. We will proceed with thoracentesis and we will send fluid for micro and chemical analysis. We will proceed with CAT scan of the chest with IV contrast after the procedure. The further plan of action will be adjusted based on pleural effusion analysis. Raheem Malik MD [facility]
[2018-06-27] MEDS: Albuterol-Ipratrop 3 mg / 0.5 (3 ml) UD IH SCH ×4 (02:30→20:33)
[2018-06-27 07:34] LABS: BASO # 0.02 K/mm3 (0.0-2.0); BASO % 0.2 % (0.0-3.0); EOS % 0.3 % (1.5-5.0); HEMOGLOBIN 11.3 g/dL (14.0-18.0); LYMPH # 1.8 (1.2-3.4); LYMPH % 18.1 % (22.0-35.0); MEAN CELL VOLUME 92.1 fl (80.0-105.0); MEAN CORPUSCULAR HEMOGLOBIN 29.9 pg (25.0-35.0); MEAN CORPUSCULAR HGB CONC 32.5 g/dl (31.0-37.0); MEAN PLATELET VOLUME 10.5 fl (7.0-11.0); MONO # 0.5 (0.1-0.6); MONO % 4.7 % (1.0-6.0); RBC 3.78 10^6/uL (3.5-6.1); RED CELL DISTRIBUTION WIDTH 14.2 % (11.5-14.5); WHITE BLOOD COUNT 9.8 10^3/uL (4.5-11.0)
[2018-06-27 08:02] LABS: ALB/GLOB RATIO 0.8 (1.1-1.8); ALBUMIN 3.2 g/dL (3.0-4.8); ALT/SGPT 9 U/L (7-56); AST/SGOT 32 U/L (17-59); BLOOD UREA NITROGEN 28 mg/dL (7-21); CALCIUM 8.6 mg/dL (8.4-10.5); GFR NON-AFRICAN AMERICAN > 60
--- NOTE | 2018-06-27 12:05 | CP.PCM.PN ---
<Lee Cote - Last Filed: 06/27/18 11:47> Subjective - Date & Time of Evaluation Date of Evaluation: 06/27/18 Time of Evaluation: 11:47 - Subjective Subjective: Lee Cote, PGY-1, Internal Medicine Progress Note for Dr. Beard Patient seen and evaluated at bedside. Patient had no acute overnight events. Patient continues to have diffuse secretions from tracheostomy. 12-point ROS was unattainable due to patient's tracheostomy status. Objective - Vital Signs/Intake and Output Vital Signs (last 24 hours): Temp Pulse Resp BP Pulse Ox 98.1 F 83 17 111/71 94 L 06/27/18 06:00 06/27/18 09:02 06/27/18 06:00 06/27/18 09:02 06/27/18 06:00 Intake and Output: 06/27/18 06/27/18 06:59 18:59 Intake Total 810 Output Total 300 Balance 510 - Medications Medications: Current Medications Albuterol/Ipratropium (Duoneb 3 Mg/0.5 Mg (3 Ml) Ud) 3 ml IH Q2H PRN PRN Reason: Shortness of Breath Last Admin: 06/23/18 23:19 Dose: 3 ml Albuterol/Ipratropium (Duoneb 3 Mg/0.5 Mg (3 Ml) Ud) 3 ml IH [id number] [facility] Last Admin: 06/27/18 07:16 Dose: 3 ml Aspirin (Aspirin Chewable) 81 mg PEG DAILY [facility] Last Admin: 06/27/18 09:02 Dose: 81 mg Atorvastatin Calcium (Lipitor) 80 mg PEG DIN [facility] Last Admin: 06/26/18 16:41 Dose: 80 mg Carbidopa/Levodopa (Sinemet) 1 tab PEG 1100,1600 [facility] Last Admin: 06/26/18 16:41 Dose: 1 tab Carbidopa/Levodopa (Sinemet 10/100) 2 tab PEG 0700 [facility] Last Admin: 06/27/18 09:00 Dose: 2 tab Clopidogrel Bisulfate (Plavix) 75 mg PEG DAILY [facility] Last Admin: 06/27/18 09:02 Dose: 75 mg Hydrochlorothiazide (Hydrodiuril) 12.5 mg PEG DAILY [facility] Last Admin: 06/23/18 10:15 Dose: 12.5 mg Lisinopril (Zestril) 10 mg PEG DAILY [facility] Last Admin: 06/27/18 09:02 Dose: 10 mg Pantoprazole Sodium (Protonix Inj) 40 mg IVP DAILY [facility] Last Admin: 06/27/18 09:01 Dose: 40 mg - Labs Labs: 06/27/18 07:00 06/27/18 07:00 PT 14.2 SECONDS (9.4-12.5) H 06/26/18 12:20 INR 1.26 06/26/18 12:20 APTT 33.8 Seconds (26.9-38.3) 06/26/18 12:20 - Constitutional Appears: Non-toxic - Head Exam Head Exam: ATRAUMATIC, NORMAL INSPECTION, NORMOCEPHALIC Additional comments: Tracheostomy tube in place, clean and non bleeding/draining extensively - Eye Exam Eye Exam: EOMI, Normal appearance, PERRL Pupil Exam: NORMAL ACCOMODATION, PERRL - ENT Exam ENT Exam: Mucous Membranes Moist, Normal Exam - Neck Exam Additional comments: Tracheostomy tube in place, clean and non bleeding/draining - Respiratory Exam Respiratory Exam: Clear to Auscultation Bilateral, NORMAL BREATHING PATTERN, no respiratory distress - Cardiovascular Exam Cardiovascular Exam: REGULAR RHYTHM, no tachycardia - GI/Abdominal Exam GI & Abdominal Exam: Normal Bowel Sounds, Soft. PEG Tube in place, site is c/d/i. Suprapubic catheter in place site is c/d/i. absent: Tenderness, rebound, guarding - Extremities Exam Extremities exam: Positive for: normal inspection. 5/5 muscle strength in upper and lower extremities B/L - Neurological Exam Neurological exam: Awake, Alert, CN II-XII Intact, Moves all extremities without difficulty. No focal motor/sensory deficits noted. Resting tremor with masked facies present . - Psychiatric Exam Psychiatric exam: Normal Affect, Normal Mood - Skin Skin Exam: Dry, Intact, Normal Color, Warm Assessment and Plan - Assessment and Plan (Free Text) Assessment: 62 male with past medical history of hypertension, Parkinson's Disease, Recent CVA complicated by tracheostomy tube, PEG tube, Suprapubic catheter (Hospitalized 1 month ago in [facility] [place]) presented to [facility] for mild shortness of breath with increased respiratory secretions due to recent tracheostomy tube placement and positive sputum Cultures. Patient has no focal neurological deficits. Neurology, Pulmonology, and ID are on consult. Patient's insurance recently terminated, will not qualify for home PT/nurse aid/servic es/rehab. Patient is to have physical therapy until functionally clear to go home. Family educated on tracheostomy and PEG tube care. Plan: Chronic CVA with small acute infarct -Physical therapy is recommending acute rehabilitation/Home with Services, but patient's insurance does not qualify -Patient will continue to work with PT for improvement in functional status including ambulation -06/18 MRI Brain: small acute infarct at right cerebellar hemisphere. Chronic infarcts in joya and right medulla. Chronic infarct in left occipital lobe -06/18 MRA Head: chronic occlusions -06/16: CT Head: chronic lacunar infarctions in bilateral basal ganglia and chronic infarction in the left occipital -06/16 CT Head and Neck: unremarkable -Carotid ultrasound: negative -HgbA1c: 5 -Lipid panel unremarkable -TSH unremarkable -Echocardiogram: EF 61%, moderate severe aortic regurgitation, bicuspid aortic valve -Continue aspirin, plavix, and lipitor Right pleural effusion -CXR 06/26: moderate right pleural effusion with presumable compressive atelectasis in right lower lobe -Will plan for thoracentesis this week -Will obtain cell count, glucose, LDH, protein, triglycerides, amylase, culture -Will need CT scan with IV contrast post procedure Respiratory secretions -03/20 to recent tracheostomy tube placement due to CVA leading to dysphagia increasing risk of aspiration -Sputum culture on 06/17: Klebsiella Pneumonia and Serratia Marcescens. Resistant to ampicillin, bactrim, and cefazolin -Blood culture from 06/15 and 06/20 negative -Urine culture 06/20: yeast species. UA shows unlikely UTI -CXR 06/20 shows no active disease, no change compared to prior exam -CXR 06/26 shows interval development of moderate right pleural effusion with presumable compression atelectasis in the RLL -Now off antibiotics -Continue with chest PT, tracheostomy care -Aspiration precautions, HOB elevated -Duonebs scheduled and PRN -ID and Pulmonology on consult Hypertension -Continue with lisinopril Hyperlipidemia -Continue with lipitor 80 mg daily History of Parkinson's disease -Continue with levodopa/carbidopa PEG tube placement 2/2 to dysphagia from CVA -Changed to bolus feeds 5 times a day and prostat 30 mL TID -Family educated on PEG tube care Suprapubic catheterization -Follow up outpatient on discharge with urology GI prophylaxis: protonix Patient plan discussed with Dr. Beard. <Anh Beard - Last Filed: 06/27/18 12:14> Objective - Vital Signs/Intake and Output Vital Signs (last 24 hours): Temp Pulse Resp BP Pulse Ox 98.1 F 83 17 111/71 94 L 06/27/18 06:00 06/27/18 09:02 06/27/18 06:00 06/27/18 09:02 06/27/18 06:00 Intake and Output: 06/27/18 06/27/18 06:59 18:59 Intake Total 810 Output Total 300 Balance 510 - Medications Medications: Current Medications Albuterol/Ipratropium (Duoneb 3 Mg/0.5 Mg (3 Ml) Ud) 3 ml IH Q2H PRN PRN Reason: Shortness of Breath Last Admin: 06/23/18 23:19 Dose: 3 ml Albuterol/Ipratropium (Duoneb 3 Mg/0.5 Mg (3 Ml) Ud) 3 ml IH [id number] [facility] Last Admin: 06/27/18 07:16 Dose: 3 ml Aspirin (Aspirin Chewable) 81 mg PEG DAILY [facility] Last Admin: 06/27/18 09:02 Dose: 81 mg Atorvastatin Calcium (Lipitor) 80 mg PEG DIN [facility] Last Admin: 06/26/18 16:41 Dose: 80 mg Carbidopa/Levodopa (Sinemet) 1 tab PEG 1100,1600 [facility] Last Admin: 06/26/18 16:41 Dose: 1 tab Carbidopa/Levodopa (Sinemet 10/100) 2 tab PEG 0700 [facility] Last Admin: 06/27/18 09:00 Dose: 2 tab Clopidogrel Bisulfate (Plavix) 75 mg PEG DAILY [facility] Last Admin: 06/27/18 09:02 Dose: 75 mg Hydrochlorothiazide (Hydrodiuril) 12.5 mg PEG DAILY [facility] Last Admin: 06/23/18 10:15 Dose: 12.5 mg Lisinopril (Zestril) 10 mg PEG DAILY [facility] Last Admin: 06/27/18 09:02 Dose: 10 mg Pantoprazole Sodium (Protonix Inj) 40 mg IVP DAILY [facility] Last Admin: 06/27/18 09:01 Dose: 40 mg - Labs Labs: 06/27/18 07:00 06/27/18 07:00 PT 14.2 SECONDS (9.4-12.5) H 06/26/18 12:20 INR 1.26 06/26/18 12:20 APTT 33.8 Seconds (26.9-38.3) 06/26/18 12:20 Attending/Attestation - Attestation I have personally seen and examined this patient.: Yes I have fully participated in the care of the patient.: Yes I have reviewed all pertinent clinical information, including history, physical exam and plan: Yes Notes (Text): 06/27/18 12:12 62 year old male with past medical history of hypertension, dyslipidemia, Parkinson's disease and recent CVA s/p trach s/p PEG and s/p suprapubic catheter who presented with increased secretions from trach. Tracheal cultures was growing Klebsiella Pneumonia and Serratia Marcescens. CXR is negative. Patient is s/p antibiotics. During ambulation on Thursday he desaturated to 87%. Repeat chest xray showed interval development of moderate right pleural effusion. Pulmonary follow up was appreciated who recommends thoracocentesis. Will request for IR evaluation tomorrow. CT head, MRI brain, MRA head, and CT head/necks studies reviewed as above. Patient is on aspirin, plavix, lisinopril and statin. HCTZ was discontinued secondary to low normal blood pressure. PT is following and recommending acute rehab. However patient's insurance does not qualify for acute rehab. Continue with physical therapy with stairs training with d/c planning home with family support once cleared by PT. Continue with family education for trach/PEG care. Family is at bedside and questions were answered. Anh Beard MD Hospitalist.
--- NOTE | 2018-06-27 15:11 | PN ---
DATE: 06/27/2018 SUBJECTIVE: The patient is in bed, in no acute distress, nontoxic. PHYSICAL EXAMINATION: VITAL SIGNS: Temperature is 98, blood pressure is 111/70, respiratory rate of 12. HEENT: Unremarkable. NECK: Supple. LUNGS: Have decreased breath sounds. HEART: Normal S1, S2. ABDOMEN: Soft. LABORATORY DATA: Laboratory examination noted. Chemistries are reviewed. Urinalysis is noted and serology is noted. Microbiology is reviewed. Review of orders reveals the patient to be off of antibiotics. The patient's chest x-ray is noted. ASSESSMENT AND PLAN: This is a 62-year-old male, who is Jared, who was admitted to [facility] in the hospital and had cerebrovascular accident, was trach and has suprapubic catheter and PEG and history of Parkinson's disease, was admitted here, was given antibiotics and currently now off of antibiotics, afebrile. The patient was treated for healthcare-associated pneumonia. The radiological findings will be present for sometime. No reason to treat the chest x-ray finding from the recent x-ray. The patient is at risk for nosocomial infections. Aren Webb MD
[2018-06-27 16:27] LABS: URINE BILIRUBIN SMALL (NEGATIVE); URINE BLOOD LARGE (NEGATIVE); URINE GLUCOSE (UA) NEGATIVE (NEGATIVE); URINE LEUKOCYTE ESTERASE MODERATE Leu/uL (NEGATIVE); URINE PROTEIN 100 mg/dL (<30 mg/dL)
[2018-06-27 16:28] LABS: URINE APPEARANCE SLIGHT-CLOUDY (CLEAR); URINE COLOR YELLOW (YELLOW)
[2018-06-27 16:41] LABS: URINE RBC 25 - 30 /hpf (0-2)
[2018-06-27 16:42] LABS: URINE BACTERIA SMALL /hpf; URINE CALCIUM OXALATE CRYSTALS SMALL /hpf
[2018-06-28] MEDS: Albuterol-Ipratrop 3 mg / 0.5 (3 ml) UD IH SCH ×4 (02:10→20:55)
[2018-06-28 07:18] LABS: BASO # 0.01 K/mm3 (0.0-2.0); BASO % 0.1 % (0.0-3.0); EOS # 0.1 (0.0-0.7); EOS % 1.6 % (1.5-5.0); HEMOGLOBIN 10.1 g/dL (14.0-18.0); LYMPH # 1.7 (1.2-3.4); LYMPH % 19.5 % (22.0-35.0); MEAN CORPUSCULAR HEMOGLOBIN 29.4 pg (25.0-35.0); MEAN CORPUSCULAR HGB CONC 31.6 g/dl (31.0-37.0); MEAN PLATELET VOLUME 10.2 fl (7.0-11.0); MONO # 0.4 (0.1-0.6); MONO % 4.6 % (1.0-6.0); RBC 3.44 10^6/uL (3.5-6.1); RED CELL DISTRIBUTION WIDTH 14.5 % (11.5-14.5); WHITE BLOOD COUNT 8.7 10^3/uL (4.5-11.0)
[2018-06-28] MEDS: Albuterol-Ipratrop 3 mg / 0.5 (3 ml) UD IH PRN (07:57)
[2018-06-28 07:58] LABS: ALB/GLOB RATIO 0.8 (1.1-1.8); ALT/SGPT 16 U/L (7-56); AST/SGOT 40 U/L (17-59); BLOOD UREA NITROGEN 24 mg/dL (7-21); CALCIUM 8.3 mg/dL (8.4-10.5); GFR NON-AFRICAN AMERICAN > 60
--- NOTE | 2018-06-28 14:22 | CP.PCM.PN ---
<Babak Fofana - Last Filed: 06/28/18 14:14> Subjective - Date & Time of Evaluation Date of Evaluation: 06/28/18 Time of Evaluation: 11:15 - Subjective Subjective: Babak Fofana PGY1 [facility] Medicine Progress Note Patient seen and examined at bedside this morning. No acute events reported overnight. Patient admits to respiratory secretions and denies any other complaints at this time. Patient to have thoracentesis today. Patient to continue undergoing physical therapy. Objective - Vital Signs/Intake and Output Vital Signs (last 24 hours): Temp Pulse Resp BP Pulse Ox 98.5 F 70 20 122/75 95 06/27/18 22:00 06/28/18 11:23 06/27/18 22:00 06/28/18 11:23 06/27/18 22:00 Intake and Output: 06/28/18 06/28/18 06:59 18:59 Intake Total 600 Output Total 300 Balance 300 - Medications Medications: Current Medications Albuterol/Ipratropium (Duoneb 3 Mg/0.5 Mg (3 Ml) Ud) 3 ml IH Q2H PRN PRN Reason: Shortness of Breath Last Admin: 06/28/18 07:57 Dose: 3 ml Albuterol/Ipratropium (Duoneb 3 Mg/0.5 Mg (3 Ml) Ud) 3 ml IH [id number] [facility] Last Admin: 06/28/18 13:42 Dose: 3 ml Aspirin (Aspirin Chewable) 81 mg PEG DAILY [facility] Last Admin: 06/28/18 11:23 Dose: 81 mg Atorvastatin Calcium (Lipitor) 80 mg PEG DIN [facility] Last Admin: 06/27/18 18:16 Dose: 80 mg Carbidopa/Levodopa (Sinemet) 1 tab PEG 1100,1600 [facility] Last Admin: 06/28/18 11:24 Dose: 1 tab Carbidopa/Levodopa (Sinemet 10/100) 2 tab PEG 0700 [facility] Last Admin: 06/28/18 06:42 Dose: 2 tab Clopidogrel Bisulfate (Plavix) 75 mg PEG DAILY [facility] Last Admin: 06/28/18 11:24 Dose: 75 mg Hydrochlorothiazide (Hydrodiuril) 12.5 mg PEG DAILY [facility] Last Admin: 06/23/18 10:15 Dose: 12.5 mg Lisinopril (Zestril) 10 mg PEG DAILY [facility] Last Admin: 06/28/18 11:23 Dose: 10 mg Pantoprazole Sodium (Protonix Inj) 40 mg IVP DAILY [facility] Last Admin: 06/28/18 11:22 Dose: 40 mg - Labs Labs: 06/28/18 07:00 06/28/18 07:00 PT 14.2 SECONDS (9.4-12.5) H 06/26/18 12:20 INR 1.26 06/26/18 12:20 APTT 33.8 Seconds (26.9-38.3) 06/26/18 12:20 - Constitutional Appears: Non-toxic - Head Exam Head Exam: ATRAUMATIC, NORMAL INSPECTION, NORMOCEPHALIC Additional comments: Tracheostomy tube in place, clean and non bleeding/draining - Eye Exam Eye Exam: EOMI, Normal appearance, PERRL Pupil Exam: NORMAL ACCOMODATION, PERRL - ENT Exam ENT Exam: Mucous Membranes Moist, Normal Exam - Neck Exam Additional comments: Tracheostomy tube in place, clean and non bleeding/draining - Respiratory Exam Respiratory Exam: Clear to Auscultation Bilateral, NORMAL BREATHING PATTERN, no respiratory distress - Cardiovascular Exam Cardiovascular Exam: REGULAR RHYTHM, no tachycardia - GI/Abdominal Exam GI & Abdominal Exam: Normal Bowel Sounds, Soft. PEG Tube in place, site is c/d/i. Suprapubic catheter in place site is c/d/i. absent: Tenderness, rebound, guarding - Extremities Exam Extremities exam: Positive for: normal inspection. 5/5 muscle strength in upper and lower extremities B/L - Neurological Exam Neurological exam: Awake, Alert, CN II-XII Intact, Moves all extremities without difficulty. No focal motor/sensory deficits noted. Resting tremor with masked facies present . - Psychiatric Exam Psychiatric exam: Normal Affect, Normal Mood - Skin Skin Exam: Dry, Intact, Normal Color, Warm Assessment and Plan - Assessment and Plan (Free Text) Assessment: 62 M with PMHx HTN, Parkinson's Disease, Recent CVA complicated by tracheostomy tube, PEG tube, Suprapubic catheter (Hospitalized 1 month ago in [facility] [place]) who presented to [facility] for mild shortness of breath with increased respiratory secretions due to recent tracheostomy tube placement and +Sputum Cultures. Patient has no focal neurological deficits. Neurology, Pulmonology, and ID are on consult. Patient's insurance recently terminated, will not qualify for home PT/nurse aid/services/rehab. Patient to have physical therapy until functionally clear to go home. Family educated on trach and PEG tube care. Plan for thoracentesis today. Plan: Right pleural effusion -plan for thoracentesis today -CXR 06/26: interval development of moderate right pleural effusion with presumable compressive atelectasis in right lower lobe -Will obtain cell count, glucose, LDH, protein, triglycerides, amylase, culture -may need CT scan with IV contrast post procedure Chronic CVA with Small Acute Infarct -PT recommending acute rehab/ [facility], however patient's insurance does qualify at this time -Continue to work with PT for improvement in functional status including ambulation and walking stairs -will discharge home once cleared by PT -06/18 MRI Brain: small 7mm acute infarct at R-cerebellar hemisphere. Chronic infarcts in joya and R-medulla. Chronic infarct in L-occipital lobe. -06/18 MRA Head: chronic occlusions -06/16 CT head: chronic lacunar infarctions in bilateral basal ganglia and chronic infarction in the left occipital. -06/16 CT Head/Neck: unremarkable -Carotid US: negative -Echo: EF 61%. Mod-severe aortic regurgitation. Bicuspid aortic valve. -continue aspirin, lipitor Respiratory Secretions - improved -2/2 Recent Tracheostomy Tube Placement -family educated on trach care -patient has been afebrile -continue trach suctioning as needed -sputum cx previously positive for klebsiella, serratia marcescens -now off antibiotics -repeat blood cultures negative for 5 days -urine culture growing yeast -continue chest PT, trach care -aspiration precautions, HOB elevated -elevate head of bed -ID and pulmonology on consult Hx of HTN - HCTZ 12.5mg on hold, Lisinopril 10mg daily -will consider decreasing lisinopril if BP low - continue to monitor Hx of HLD -continue Lipitor 80mg daily Hx of Parkinson's disease -continue Carbidopa-Levodopa, amantadine Hx PEG Tube -continue bolus feeds -family educated on PEG tube care Hx Suprapubic Cath -monitor -f/u outpatient urology upon discharge ppx: -protonix Patient seen and case discussed with attending, Dr. Prado <Maryam Prado - Last Filed: 07/03/18 14:25> Objective - Vital Signs/Intake and Output Vital Signs (last 24 hours): Temp Pulse Resp BP Pulse Ox 99.3 F 71 18 104/61 95 07/03/18 14:00 07/03/18 14:00 07/03/18 14:00 07/03/18 14:00 07/03/18 14:00 Intake and Output: 07/03/18 07/03/18 06:59 18:59 Intake Total 1700 Output Total 400 Balance 1300 - Medications Medications: Current Medications Carbidopa/Levodopa (Sinemet ) 2 tab PEG 0700 [facility] Last Admin: 07/03/18 10:35 Dose: 2 tab Clopidogrel Bisulfate (Plavix) 75 mg PEG DAILY [facility] Last Admin: 07/03/18 10:35 Dose: 75 mg Hydrochlorothiazide (Hydrodiuril) 12.5 mg PEG DAILY [facility] Last Admin: 06/23/18 10:15 Dose: 12.5 mg Pantoprazole Sodium (Protonix Susp) 40 mg PEG DAILY [facility] Last Admin: 07/03/18 10:35 Dose: 40 mg - Labs Labs: 07/03/18 07:00 07/03/18 07:00 PT 14.2 SECONDS (9.4-12.5) H 06/26/18 12:20 INR 1.26 06/26/18 12:20 APTT 33.8 Seconds (26.9-38.3) 06/26/18 12:20 Attending/Attestation - Attestation I have personally seen and examined this patient.: Yes I have fully participated in the care of the patient.: Yes I have reviewed all pertinent clinical information, including history, physical exam and plan: Yes Notes (Text): 07/03/18 14:24 Medical record note made by the resident after discussion with my direction and input after the patient was personally seen and examined by me. I have reviewed the chart and agree that the record accurately reflects by personal performance of the history, physical exam, data review, and medical decision-making, in the course for the patient. I have also personally directed the plan of care.
--- NOTE | 2018-06-28 14:45 | CP.PCM.PN ---
Subjective - Date & Time of Evaluation Date of Evaluation: 06/28/18 Time of Evaluation: 14:00 - Subjective Subjective: Pt seen and examined, lying in bed comfortably in NAD, family at bedsid. Pt is non verbal Objective - Vital Signs/Intake and Output Vital Signs (last 24 hours): Temp Pulse Resp BP Pulse Ox 98.5 F 70 20 122/75 95 06/27/18 22:00 06/28/18 11:23 06/27/18 22:00 06/28/18 11:23 06/27/18 22:00 Intake and Output: 06/28/18 06/28/18 06:59 18:59 Intake Total 600 Output Total 300 Balance 300 - Medications Medications: Current Medications Albuterol/Ipratropium (Duoneb 3 Mg/0.5 Mg (3 Ml) Ud) 3 ml IH Q2H PRN PRN Reason: Shortness of Breath Last Admin: 06/28/18 07:57 Dose: 3 ml Albuterol/Ipratropium (Duoneb 3 Mg/0.5 Mg (3 Ml) Ud) 3 ml IH [id number] [facility] Last Admin: 06/28/18 13:42 Dose: 3 ml Aspirin (Aspirin Chewable) 81 mg PEG DAILY [facility] Last Admin: 06/28/18 11:23 Dose: 81 mg Atorvastatin Calcium (Lipitor) 80 mg PEG DIN [facility] Last Admin: 06/27/18 18:16 Dose: 80 mg Carbidopa/Levodopa (Sinemet) 1 tab PEG 1100,1600 [facility] Last Admin: 06/28/18 11:24 Dose: 1 tab Carbidopa/Levodopa (Sinemet 10/100) 2 tab PEG 0700 [facility] Last Admin: 06/28/18 06:42 Dose: 2 tab Clopidogrel Bisulfate (Plavix) 75 mg PEG DAILY [facility] Last Admin: 06/28/18 11:24 Dose: 75 mg Hydrochlorothiazide (Hydrodiuril) 12.5 mg PEG DAILY [facility] Last Admin: 06/23/18 10:15 Dose: 12.5 mg Lisinopril (Zestril) 10 mg PEG DAILY [facility] Last Admin: 06/28/18 11:23 Dose: 10 mg Pantoprazole Sodium (Protonix Inj) 40 mg IVP DAILY [facility] Last Admin: 06/28/18 11:22 Dose: 40 mg - Labs Labs: 06/28/18 07:00 06/28/18 07:00 PT 14.2 SECONDS (9.4-12.5) H 06/26/18 12:20 INR 1.26 06/26/18 12:20 APTT 33.8 Seconds (26.9-38.3) 06/26/18 12:20 - Constitutional Appears: Non-toxic, Older Than Stated Age, Chronically Ill - Head Exam Head Exam: NORMAL INSPECTION - ENT Exam ENT Exam: Mucous Membranes Moist - Neck Exam Additional comments: +trach - Respiratory Exam Respiratory Exam: Decreased Breath Sounds, NORMAL BREATHING PATTERN - Cardiovascular Exam Cardiovascular Exam: REGULAR RHYTHM, +S1, +S2 - GI/Abdominal Exam GI & Abdominal Exam: Soft, Normal Bowel Sounds Assessment and Plan - Assessment and Plan (Free Text) Assessment: 62yo male with tracheobronchitis, sepsis, abx treatment now with new developed R pleural effusion - IR thoracentesis - Will need CT chest with IV contrast after Thoracentesis - please send off pleural studies: LDH, Protein, cytology, glucose, cell count - DVT ppx
[2018-06-28 15:28] LABS: BODY FLUID TYPE PLEURAL
[2018-06-28 16:37] LABS: BF GROSS APPEARANCE CLOUDY (CLEAR); BODY FLUID TOTAL COUNT 100 (0-0)
--- NOTE | 2018-06-28 18:44 | US ---
PROCEDURE: Ultrasound guided right thoracentesis. CLINICAL HISTORY: Recent pneumonia. New right pleural effusion. Evaluate for empyema. PHYSICIAN(S): Enrique Ellsworth MD. TECHNIQUE: The relative risks and indications of the procedure were explained to the patient and his family and consent obtained. The patient was placed in a sitting position on the stretcher and sonography of the right chest performed. This revealed small bilateral pleural effusions. Greater on the right than the left. A right posterior lateral approach was selected the area prepped and draped usual sterile fashion. 1 percent xylocaine was used anesthetize the skin and soft tissues. A 7 Faroese thoracentesis catheter was trocar in the right pleural cavity and 125 cc of reeves fluid aspirated. The appropriate labs were sent. IMPRESSION: 1. Ultrasound guided right thoracentesis. 125 cc of reeves fluid was aspirated. The appropriate labs were sent
--- NOTE | 2018-06-29 01:16 | PN ---
DATE: 06/28/2018 SUBJECTIVE: The patient is in bed, in no acute distress. PHYSICAL EXAMINATION: VITAL SIGNS: Temperature of 98, blood pressure is 111/40, respiratory rate of 18. HEENT: Unremarkable. NECK: Supple. LUNGS: Have decreased breath sounds. HEART: Normal S1, S2. ABDOMEN: Soft. LABORATORY DATA: Reveals a white count of 8.7, hemoglobin of 10, BUN of 24, creatinine 0.5. Urinalysis is noted and serology is noted. Review of orders reveals the patient to be off of antibiotics. ASSESSMENT AND PLAN: A 62-year-old male who was seen earlier today in room 571. When he was in [facility], had a cerebrovascular accident resulting a suprapubic catheter, a percutaneous endoscopic gastrostomy tube and a trach. The patient with a history of Parkinson's disease and he was given the antibiotics. He has completed antibiotic therapy currently. The patient had an ultrasound, thoracentesis, with a new right pleural effusion. We will check on the cultures and results, currently off of antibiotics. Aren Webb MD
[2018-06-29] MEDS: Albuterol-Ipratrop 3 mg / 0.5 (3 ml) UD IH SCH ×4 (02:45→19:47)
[2018-06-29 07:17] LABS: BASO # 0.02 K/mm3 (0.0-2.0); BASO % 0.2 % (0.0-3.0); EOS # 0.1 (0.0-0.7); EOS % 0.9 % (1.5-5.0); HEMOGLOBIN 10.1 g/dL (14.0-18.0); LYMPH # 1.6 (1.2-3.4); LYMPH % 15.2 % (22.0-35.0); MEAN CELL VOLUME 92.4 fl (80.0-105.0); MEAN CORPUSCULAR HEMOGLOBIN 28.5 pg (25.0-35.0); MEAN CORPUSCULAR HGB CONC 30.9 g/dl (31.0-37.0); MEAN PLATELET VOLUME 9.9 fl (7.0-11.0); MONO # 0.4 (0.1-0.6); MONO % 3.7 % (1.0-6.0); RBC 3.54 10^6/uL (3.5-6.1); RED CELL DISTRIBUTION WIDTH 14.3 % (11.5-14.5); WHITE BLOOD COUNT 10.6 10^3/uL (4.5-11.0)
[2018-06-29 07:28] LABS: ALB/GLOB RATIO 0.8 (1.1-1.8); ALBUMIN 2.9 g/dL (3.0-4.8); ALT/SGPT 19 U/L (7-56); AST/SGOT 45 U/L (17-59); BLOOD UREA NITROGEN 26 mg/dL (7-21); CALCIUM 8.3 mg/dL (8.4-10.5); GFR NON-AFRICAN AMERICAN > 60
--- NOTE | 2018-06-29 08:14 | RAD ---
Date of service: 06/28/2018 HISTORY: monitor right pleural effusion COMPARISON: 06/26/2018 TECHNIQUE: 1 view obtained. FINDINGS: LUNGS: No active pulmonary disease. PLEURA: Small to moderate right-sided pleural effusion slightly decreased CARDIOVASCULAR: No aortic atherosclerotic calcification present. Normal cardiac size. No pulmonary vascular congestion. OSSEOUS STRUCTURES: No significant abnormalities. VISUALIZED UPPER ABDOMEN: Normal. OTHER FINDINGS: None. IMPRESSION: Small to moderate right-sided pleural effusion slightly decreased
[2018-06-29] MEDS ORDERED: Iohexol 350 MG/100 ML VIAL ONE (08:46)
[2018-06-29] MEDS: Pantoprazole 40 mg Susp UD PEG SCH (10:02)
--- NOTE | 2018-06-29 10:18 | CT ---
Date of service: 06/29/2018 PROCEDURE: CT Chest with contrast HISTORY: CT chest with IV contrast, right pleural effusion COMPARISON: None available. TECHNIQUE: Contiguous axial images were obtained through the chest with intravenous contrast enhancement. Sagittal and coronal reconstructions were performed. IV contrast: 100 cc of Omni 350 Radiation dose: Total exam DLP = 190.57 mGy-cm. This CT exam was performed using one or more of the following dose reduction techniques: Automated exposure control, adjustment of the mA and/or kV according to patient size, and/or use of iterative reconstruction technique. FINDINGS: LUNGS: There is dense consolidation in the right lower lobe and the medial aspect of the left lower lobe. Findings are most consistent with pneumonia. There is a moderate size right pleural effusion. MEDIASTINUM: Unremarkable thoracic aorta. No aneurysm or dissection. Normal sized heart. Main pulmonary artery unremarkable. No vascular congestion. No lymphadenopathy. No aortic atherosclerotic calcification or mural plaque present. PLEURA: There is a moderate size right pleural effusion. There is a small amount of air in the pleural space most likely from recent thoracentesis. BONES: No fracture. No destructive lesion. UPPER ABDOMEN: Grossly unremarkable. OTHER FINDINGS: None. IMPRESSION: There is dense consolidation in the right lower lobe and the medial aspect of the left lower lobe. Findings are most consistent with pneumonia. There is a moderate size right pleural effusion.
--- NOTE | 2018-06-29 12:37 | CP.PCM.PN ---
<Babak Fofana - Last Filed: 06/29/18 12:33> Subjective - Date & Time of Evaluation Date of Evaluation: 06/29/18 Time of Evaluation: 10:45 - Subjective Subjective: Babak Fofana PGY1 [facility] Medicine Progress Note Patient seen and examined at bedside this morning. No acute events reported overnight. Patient is s/p thoracentesis yesterday with 125cc straw colored fluid removed. CT head ordered for transient left sided weakness as per daughter. Patient admits to respiratory secretions. Denies any other complaints at this t alma. Objective - Vital Signs/Intake and Output Vital Signs (last 24 hours): Temp Pulse Resp BP Pulse Ox 99 F 82 18 122/66 94 L 06/29/18 06:00 06/29/18 06:00 06/29/18 06:00 06/29/18 10:01 06/29/18 06:00 Intake and Output: 06/29/18 06/29/18 06:59 18:59 Output Total 450 Balance -450 - Medications Medications: Current Medications Albuterol/Ipratropium (Duoneb 3 Mg/0.5 Mg (3 Ml) Ud) 3 ml IH Q2H PRN PRN Reason: Shortness of Breath Last Admin: 06/28/18 07:57 Dose: 3 ml Albuterol/Ipratropium (Duoneb 3 Mg/0.5 Mg (3 Ml) Ud) 3 ml IH [id number] [facility] Last Admin: 06/29/18 07:16 Dose: 3 ml Aspirin (Aspirin Chewable) 81 mg PEG DAILY [facility] Last Admin: 06/29/18 10:02 Dose: 81 mg Atorvastatin Calcium (Lipitor) 80 mg PEG DIN [facility] Last Admin: 06/28/18 18:39 Dose: 80 mg Carbidopa/Levodopa (Sinemet) 1 tab PEG 1100,1600 [facility] Last Admin: 06/29/18 12:12 Dose: 1 tab Carbidopa/Levodopa (Sinemet 10/100) 2 tab PEG 0700 [facility] Last Admin: 06/29/18 09:00 Dose: 2 tab Clopidogrel Bisulfate (Plavix) 75 mg PEG DAILY [facility] Last Admin: 06/29/18 10:02 Dose: 75 mg Hydrochlorothiazide (Hydrodiuril) 12.5 mg PEG DAILY [facility] Last Admin: 06/23/18 10:15 Dose: 12.5 mg Lisinopril (Zestril) 10 mg PEG DAILY [facility] Last Admin: 06/29/18 10:01 Dose: 10 mg Pantoprazole Sodium (Protonix Susp) 40 mg PEG DAILY [facility] Last Admin: 06/29/18 10:02 Dose: 40 mg - Labs Labs: 06/29/18 07:00 06/29/18 07:00 PT 14.2 SECONDS (9.4-12.5) H 06/26/18 12:20 INR 1.26 06/26/18 12:20 APTT 33.8 Seconds (26.9-38.3) 06/26/18 12:20 - Constitutional Appears: Non-toxic - Head Exam Head Exam: ATRAUMATIC, NORMAL INSPECTION, NORMOCEPHALIC Additional comments: Tracheostomy tube in place, clean and non bleeding/draining - Eye Exam Eye Exam: EOMI, Normal appearance, PERRL Pupil Exam: NORMAL ACCOMODATION, PERRL - ENT Exam ENT Exam: Mucous Membranes Moist, Normal Exam - Neck Exam Additional comments: Tracheostomy tube in place, clean and non bleeding/draining - Respiratory Exam Respiratory Exam: Clear to Auscultation Bilateral, NORMAL BREATHING PATTERN, no respiratory distress - Cardiovascular Exam Cardiovascular Exam: REGULAR RHYTHM, no tachycardia - GI/Abdominal Exam GI & Abdominal Exam: Normal Bowel Sounds, Soft. PEG Tube in place, site is c/d/i. Suprapubic catheter in place site is c/d/i. absent: Tenderness, rebound, guarding - Extremities Exam Extremities exam: Positive for: normal inspection. 5/5 muscle strength in upper and lower extremities B/L - Neurological Exam Neurological exam: Awake, Alert, CN II-XII Intact, Moves all extremities without difficulty. No focal motor/sensory deficits noted. No unilateral motor weakness appreciated. Resting tremor with masked facies present . - Psychiatric Exam Psychiatric exam: Normal Affect, Normal Mood - Skin Skin Exam: Dry, Intact, Normal Color, Warm Assessment and Plan - Assessment and Plan (Free Text) Assessment: 62 M with PMHx HTN, Parkinson's Disease, Recent CVA complicated by tracheostomy tube, PEG tube, Suprapubic catheter (Hospitalized 1 month ago in [facility] [place]) who presented to [facility] for mild shortness of breath with increased respiratory secretions due to recent tracheostomy tube placement and +Sputum Cultures. Patient has no focal neurological deficits. Neurology, Pulmonology, and ID are on consult. Patient's insurance recently terminated, will not qualify for home PT/nurse aid/services/rehab. Patient to have physical therapy until functionally clear to go home. Family educated on trach and PEG tube care. Plan: Right pleural effusion -s/p thoracentesis 06/28, 125cc straw colored fluid removed -pleural fluid pH 7, elevated WBC, RBC, cell count - concerning for infectious etiology -pleural glucose, LDH, TG pending -CT chest 06/29 shows dense consolidation in the right lower lobe and the medial aspect of the left lower lobe. Findings are most consistent with pneumonia. There is moderate size right pleural effusion. -CXR 06/26: interval development of moderate right pleural effusion with presumable compressive atelectasis in right lower lobe -pulm on consult Chronic CVA with Small Acute Infarct -CT head pending for transient left sided weakness, now resolved -PT recommending acute rehab/ HWS, however patient's insurance does qualify at this time -Continue to work with PT for improvement in functional status including ambulation and walking stairs -will discharge home once cleared by PT -06/18 MRI Brain: small 7mm acute infarct at R-cerebellar hemisphere. Chronic infarcts in joya and R-medulla. Chronic infarct in L-occipital lobe. -06/18 MRA Head: chronic occlusions -06/16 CT head: chronic lacunar infarctions in bilateral basal ganglia and chronic infarction in the left occipital. -06/16 CT Head/Neck: unremarkable -Carotid US: negative -Echo: EF 61%. Mod-severe aortic regurgitation. Bicuspid aortic valve. -continue aspirin, lipitor Respiratory Secretions - improved -2/2 Recent Tracheostomy Tube Placement -family educated on trach care -patient has been afebrile -continue trach suctioning as needed -sputum cx previously positive for klebsiella, serratia marcescens -now off antibiotics -repeat blood cultures negative for 5 days -urine culture growing yeast -continue chest PT, trach care -aspiration precautions, HOB elevated -elevate head of bed -ID and pulmonology on consult Hx of HTN - HCTZ 12.5mg on hold, Lisinopril 10mg daily -will consider decreasing lisinopril if BP low - continue to monitor Hx of HLD -continue Lipitor 80mg daily Hx of Parkinson's disease -continue Carbidopa-Levodopa, amantadine Hx PEG Tube -continue bolus feeds -family educated on PEG tube care Hx Suprapubic Cath -monitor -f/u outpatient urology upon discharge ppx: -protonix Patient seen and case discussed with attending, Dr. Prado <Maryam Prado - Last Filed: 07/03/18 14:24> Objective - Vital Signs/Intake and Output Vital Signs (last 24 hours): Temp Pulse Resp BP Pulse Ox 99.3 F 71 18 104/61 95 07/03/18 14:00 07/03/18 14:00 07/03/18 14:00 07/03/18 14:00 07/03/18 14:00 Intake and Output: 07/03/18 07/03/18 06:59 18:59 Intake Total 1700 Output Total 400 Balance 1300 - Medications Medications: Current Medications Carbidopa/Levodopa (Sinemet 10/) 2 tab PEG 0700 [facility] Last Admin: 07/03/18 10:35 Dose: 2 tab Clopidogrel Bisulfate (Plavix) 75 mg PEG DAILY [facility] Last Admin: 07/03/18 10:35 Dose: 75 mg Hydrochlorothiazide (Hydrodiuril) 12.5 mg PEG DAILY [facility] Last Admin: 06/23/18 10:15 Dose: 12.5 mg Pantoprazole Sodium (Protonix Susp) 40 mg PEG DAILY [facility] Last Admin: 07/03/18 10:35 Dose: 40 mg - Labs Labs: 07/03/18 07:00 07/03/18 07:00 PT 14.2 SECONDS (9.4-12.5) H 06/26/18 12:20 INR 1.26 06/26/18 12:20 APTT 33.8 Seconds (26.9-38.3) 06/26/18 12:20 Attending/Attestation - Attestation I have personally seen and examined this patient.: Yes I have fully participated in the care of the patient.: Yes I have reviewed all pertinent clinical information, including history, physical exam and plan: Yes Notes (Text): 07/03/18 14:24 Medical record note made by the resident after discussion with my direction and input after the patient was personally seen and examined by me. I have reviewed the chart and agree that the record accurately reflects by personal performance of the history, physical exam, data review, and medical decision-making, in the course for the patient. I have also personally directed the plan of care.
--- NOTE | 2018-06-29 14:12 | CT ---
Date of service: 06/29/2018 PROCEDURE: CT HEAD WITHOUT CONTRAST. HISTORY: transient left sided weakness COMPARISON: MRI brain without contrast from 06/17/[address] 06/17/2018 TECHNIQUE: Axial computed tomography images were obtained through the head/brain without intravenous contrast. Radiation dose: Total exam DLP = 983.22 mGy-cm. This CT exam was performed using one or more of the following dose reduction techniques: Automated exposure control, adjustment of the mA and/or kV according to patient size, and/or use of iterative reconstruction technique. FINDINGS: HEMORRHAGE: No intracranial hemorrhage. BRAIN: There are chronic infarctions in the joya and left occipital lobe. There mclean-white matter differentiation is preserved. There is no mass, mass effect or abnormal extra-axial fluid collection. The midline sagittal structures are normal. VENTRICLES: There is mild age-related global parenchymal volume loss and proportionate enlargement of the ventricles and cortical sulci. CALVARIUM: There is no calvarial fracture or extracranial soft tissue swelling. PARANASAL SINUSES: There fluid in the right maxillary sinus. The remaining included paranasal sinuses are predominantly clear. MASTOID AIR CELLS: Predominantly clear. OTHER FINDINGS: None. IMPRESSION: 1. No acute intracranial abnormality. If there is a persistent focal neurologic deficit and an ongoing clinical concern for acute infarction, an MRI of the brain without intravenous contrast would be a more sensitive modality for evaluation of hyperacute/acute ischemic infarction. 2. Chronic infarctions in the joya and left occipital lobe. 3. Fluid in the right maxillary sinus may represent acute sinusitis in the appropriate clinical setting.
--- NOTE | 2018-06-29 21:00 | PN ---
DATE: 06/29/2018 SUBJECTIVE: Patient is in bed, in no acute distress, nontoxic. PHYSICAL EXAMINATION: VITAL SIGNS: Temperature is 98, blood pressure is 112/70, respiratory rate of 16. HEENT: Unremarkable. NECK: Supple. LUNGS: Decreased breath sounds. HEART: Normal S1 and S2. ABDOMEN: Soft. LABORATORY DATA: Reveals the patient's white count of 10.6. Chemistry reveals a BUN of 26 and creatinine of 0.5. Urinalysis is noted. ASSESSMENT AND PLAN: A 62-year-old male seen earlier today who was originally in the [facility] [place], had a cerebrovascular accident and was hospitalized there for a month, resulting in a suprapubic catheter, percutaneous endoscopic gastrostomy tube placement, and a tracheostomy. The patient does have a history of Parkinson's disease. Currently, now off of antibiotics. He is afebrile. The culture of the pleural fluid is no growth. We will follow with you. Overall prognosis is poor. Aren Webb MD
[2018-06-30] MEDS: Albuterol-Ipratrop 3 mg / 0.5 (3 ml) UD IH SCH ×4 (01:16→19:41)
[2018-06-30 07:24] LABS: BASO # 0.01 K/mm3 (0.0-2.0); BASO % 0.1 % (0.0-3.0); EOS # 0.1 (0.0-0.7); EOS % 1.4 % (1.5-5.0); HEMOGLOBIN 9.9 g/dL (14.0-18.0); LYMPH # 1.5 (1.2-3.4); LYMPH % 15.6 % (22.0-35.0); MEAN CELL VOLUME 92.8 fl (80.0-105.0); MEAN CORPUSCULAR HEMOGLOBIN 28.4 pg (25.0-35.0); MEAN CORPUSCULAR HGB CONC 30.6 g/dl (31.0-37.0); MEAN PLATELET VOLUME 10.2 fl (7.0-11.0); MONO # 0.4 (0.1-0.6); MONO % 4.7 % (1.0-6.0); RBC 3.49 10^6/uL (3.5-6.1); RED CELL DISTRIBUTION WIDTH 14.4 % (11.5-14.5); WHITE BLOOD COUNT 9.3 10^3/uL (4.5-11.0)
[2018-06-30 07:46] LABS: ALB/GLOB RATIO 0.8 (1.1-1.8); ALBUMIN 2.9 g/dL (3.0-4.8); ALT/SGPT 21 U/L (7-56); AST/SGOT 40 U/L (17-59); BLOOD UREA NITROGEN 23 mg/dL (7-21); CALCIUM 8.3 mg/dL (8.4-10.5); GFR NON-AFRICAN AMERICAN > 60
[2018-06-30] MEDS ORDERED: Potassium Chloride 40 mEq/30 ml LIQ UD PO ONE (08:33)
--- NOTE | 2018-06-30 10:06 | PN ---
DATE: 06/30/2018 SUBJECTIVE: The patient is in bed in no acute distress, nontoxic. PHYSICAL EXAMINATION: VITAL SIGNS: Temperature is 98, blood pressure is 120/70, respiratory rate of 16. HEENT: Unremarkable. NECK: Supple. LUNGS: Have decreased breath sounds. HEART: Normal S1, S2. ABDOMEN: Soft, nontender. LABORATORY EXAMINATION: Reveals a white count of 10,000 and hemoglobin of 10, BUN of 26, creatinine of 0.5. Urinalysis is noted. Microbiology is reviewed. ASSESSMENT AND PLAN: This is a 62-year-old male who was seen earlier today in [facility] cerebrovascular accident, suprapubic catheter. Percutaneous endoscopic gastrostomy tube placement, tracheostomy Parkinson's. Currently off of antibiotics. The patient was seen earlier this morning. Family members asleep in the chair. We will follow with you. The patient is at risk for developing nosocomial infections. Aren Webb MD
[2018-06-30] MEDS: Pantoprazole 40 mg Susp UD PEG SCH (10:44)
--- NOTE | 2018-06-30 14:08 | CP.PCM.PN ---
<Babak Fofana - Last Filed: 06/30/18 13:52> Subjective - Date & Time of Evaluation Date of Evaluation: 06/30/18 Time of Evaluation: 11:50 - Subjective Subjective: Babak Fofana PGY1 [facility] Medicine Progress Note Patient seen and examined at bedside this morning. No acute events reported overnight. Patient seen resting in bed comfortably. Denies any new complaints at this time. No chest tube needed as per pulmonology for right pleural effusion. Objective - Vital Signs/Intake and Output Vital Signs (last 24 hours): Temp Pulse Resp BP Pulse Ox 98.9 F 74 18 98/74 L 95 06/30/18 07:51 06/30/18 07:51 06/30/18 07:51 06/30/18 10:41 06/30/18 07:51 Intake and Output: 06/30/18 06/30/18 06:59 18:59 Output Total 75 Balance -75 - Medications Medications: Current Medications Albuterol/Ipratropium (Duoneb 3 Mg/0.5 Mg (3 Ml) Ud) 3 ml IH Q2H PRN PRN Reason: Shortness of Breath Last Admin: 06/28/18 07:57 Dose: 3 ml Albuterol/Ipratropium (Duoneb 3 Mg/0.5 Mg (3 Ml) Ud) 3 ml IH [id number] [facility] Last Admin: 06/30/18 07:45 Dose: 3 ml Aspirin (Aspirin Chewable) 81 mg PEG DAILY [facility] Last Admin: 06/30/18 10:45 Dose: 81 mg Atorvastatin Calcium (Lipitor) 80 mg PEG DIN [facility] Last Admin: 06/29/18 17:24 Dose: 80 mg Carbidopa/Levodopa (Sinemet) 1 tab PEG 1100,1600 [facility] Last Admin: 06/30/18 10:45 Dose: 1 tab Carbidopa/Levodopa (Sinemet 10/100) 2 tab PEG 0700 [facility] Last Admin: 06/30/18 06:23 Dose: 2 tab Clopidogrel Bisulfate (Plavix) 75 mg PEG DAILY [facility] Last Admin: 06/30/18 10:45 Dose: 75 mg Hydrochlorothiazide (Hydrodiuril) 12.5 mg PEG DAILY [facility] Last Admin: 06/23/18 10:15 Dose: 12.5 mg Lisinopril (Zestril) 10 mg PEG DAILY [facility] Last Admin: 06/30/18 10:41 Dose: Not Given Pantoprazole Sodium (Protonix Susp) 40 mg PEG DAILY [facility] Last Admin: 06/30/18 10:44 Dose: 40 mg - Labs Labs: 06/30/18 07:05 06/30/18 07:05 PT 14.2 SECONDS (9.4-12.5) H 06/26/18 12:20 INR 1.26 06/26/18 12:20 APTT 33.8 Seconds (26.9-38.3) 06/26/18 12:20 - Constitutional Appears: Non-toxic - Head Exam Head Exam: ATRAUMATIC, NORMAL INSPECTION, NORMOCEPHALIC Additional comments: Tracheostomy tube in place, clean and non bleeding/draining - Eye Exam Eye Exam: EOMI, Normal appearance, PERRL Pupil Exam: NORMAL ACCOMODATION, PERRL - ENT Exam ENT Exam: Mucous Membranes Moist, Normal Exam - Neck Exam Additional comments: Tracheostomy tube in place, clean and non bleeding/draining - Respiratory Exam Respiratory Exam: Clear to Auscultation Bilateral, NORMAL BREATHING PATTERN, no respiratory distress - Cardiovascular Exam Cardiovascular Exam: REGULAR RHYTHM, no tachycardia - GI/Abdominal Exam GI & Abdominal Exam: Normal Bowel Sounds, Soft. PEG Tube in place, site is c/d/i. Suprapubic catheter in place site is c/d/i. absent: Tenderness, rebound, guarding - Extremities Exam Extremities exam: Positive for: normal inspection. 5/5 muscle strength in upper and lower extremities B/L - Neurological Exam Neurological exam: Awake, Alert, CN II-XII Intact, Moves all extremities without difficulty. No focal motor/sensory deficits noted. No unilateral motor weakness appreciated. Resting tremor with masked facies present . - Psychiatric Exam Psychiatric exam: Normal Affect, Normal Mood - Skin Skin Exam: Dry, Intact, Normal Color, Warm Assessment and Plan - Assessment and Plan (Free Text) Assessment: 62 M with PMHx HTN, Parkinson's Disease, Recent CVA complicated by tracheostomy tube, PEG tube, Suprapubic catheter (Hospitalized 1 month ago in [facility] [place]) who presented to [facility] for mild shortness of breath with increased respiratory secretions due to recent tracheostomy tube placement and +Sputum Cultures. Patient has no focal neurological deficits. Neurology, Pulmonology, and ID are on consult. Patient's insurance recently terminated, will not qualify for home PT/nurse aid/services/rehab. Patient to have physical therapy until functionally clear to go home. Family educated on trach and PEG tube care. No chest tube at this time as per pulmonology. Plan: Right pleural effusion -s/p thoracentesis 06/28, 125cc straw colored fluid removed -pulm on consult, recommends no chest tube at this time -pleural fluid pH 7, cloudy, elevated WBC, RBC, cell count - concerning for infectious etiology -pleural glucose, LDH, TG pending -CT chest 06/29 shows dense consolidation in the right lower lobe and the medial aspect of the left lower lobe. Findings are most consistent with pneumonia. There is moderate size right pleural effusion. -CXR 06/26: interval development of moderate right pleural effusion with presumable compressive atelectasis in right lower lobe Chronic CVA with Small Acute Infarct -CT head shows no acute intracranial abnormality. Ordered for transient left sided weakness, now resolved -PT recommending acute rehab/ HWS, however patient's insurance does qualify at this time -Continue to work with PT for improvement in functional status including ambulation and walking stairs -will discharge home once cleared by PT -06/18 MRI Brain: small 7mm acute infarct at R-cerebellar hemisphere. Chronic infarcts in joya and R-medulla. Chronic infarct in L-occipital lobe. -06/18 MRA Head: chronic occlusions -06/16 CT head: chronic lacunar infarctions in bilateral basal ganglia and chronic infarction in the left occipital. -06/16 CT Head/Neck: unremarkable -Carotid US: negative -Echo: EF 61%. Mod-severe aortic regurgitation. Bicuspid aortic valve. -continue aspirin, lipitor Hx Suprapubic Cath -monitor -urology on consult, Dr. Odell E -family is requesting evaluation for continued need of suprapubic catheter -f/u outpatient urology upon discharge Hypokalemia -repleted, f/u Hx PEG Tube -continue bolus feeds -family educated on PEG tube care Respiratory Secretions - improved -2/2 Recent Tracheostomy Tube Placement -family educated on trach care -patient has been afebrile -continue trach suctioning as needed -sputum cx previously positive for klebsiella, serratia marcescens -now off antibiotics -repeat blood cultures negative for 5 days -urine culture growing yeast -continue chest PT, trach care -aspiration precautions, HOB elevated -elevate head of bed -ID and pulmonology on consult Hx of HTN - HCTZ 12.5mg on hold, Lisinopril 10mg daily -will consider decreasing lisinopril if BP low - continue to monitor Hx of HLD -continue Lipitor 80mg daily Hx of Parkinson's disease -continue Carbidopa-Levodopa, amantadine ppx: -protonix Patient seen and case discussed with attending, Dr. Prado <Maryam Prado - Last Filed: 07/03/18 14:22> Objective - Vital Signs/Intake and Output Vital Signs (last 24 hours): Temp Pulse Resp BP Pulse Ox 99.3 F 71 18 104/61 95 07/03/18 14:00 07/03/18 14:00 07/03/18 14:00 07/03/18 14:00 07/03/18 14:00 Intake and Output: 07/03/18 07/03/18 06:59 18:59 Intake Total 1700 Output Total 400 Balance 1300 - Medications Medications: Current Medications Carbidopa/Levodopa (Sinemet 10/) 2 tab PEG 0700 [facility] Last Admin: 07/03/18 10:35 Dose: 2 tab Clopidogrel Bisulfate (Plavix) 75 mg PEG DAILY [facility] Last Admin: 07/03/18 10:35 Dose: 75 mg Hydrochlorothiazide (Hydrodiuril) 12.5 mg PEG DAILY [facility] Last Admin: 06/23/18 10:15 Dose: 12.5 mg Pantoprazole Sodium (Protonix Susp) 40 mg PEG DAILY [facility] Last Admin: 07/03/18 10:35 Dose: 40 mg - Labs Labs: 07/03/18 07:00 07/03/18 07:00 PT 14.2 SECONDS (9.4-12.5) H 06/26/18 12:20 INR 1.26 06/26/18 12:20 APTT 33.8 Seconds (26.9-38.3) 06/26/18 12:20 Attending/Attestation - Attestation I have personally seen and examined this patient.: Yes I have fully participated in the care of the patient.: Yes I have reviewed all pertinent clinical information, including history, physical exam and plan: Yes Notes (Text): 07/03/18 14:22 Medical record note made by the resident after discussion with my direction and input after the patient was personally seen and examined by me. I have reviewed the chart and agree that the record accurately reflects by personal performance of the history, physical exam, data review, and medical decision-making, in the course for the patient. I have also personally directed the plan of care.
[2018-07-01] MEDS: Albuterol-Ipratrop 3 mg / 0.5 (3 ml) UD IH SCH ×4 (01:31→20:28)
[2018-07-01 09:03] LABS: BASO # 0.01 K/mm3 (0.0-2.0); BASO % 0.1 % (0.0-3.0); EOS # 0.1 (0.0-0.7); EOS % 0.9 % (1.5-5.0); HEMOGLOBIN 9.4 g/dL (14.0-18.0); LYMPH # 1.3 (1.2-3.4); LYMPH % 17.2 % (22.0-35.0); MEAN CELL VOLUME 93.1 fl (80.0-105.0); MEAN CORPUSCULAR HEMOGLOBIN 28.2 pg (25.0-35.0); MEAN CORPUSCULAR HGB CONC 30.3 g/dl (31.0-37.0); MEAN PLATELET VOLUME 9.7 fl (7.0-11.0); MONO # 0.2 (0.1-0.6); MONO % 3.2 % (1.0-6.0); RBC 3.33 10^6/uL (3.5-6.1); RED CELL DISTRIBUTION WIDTH 14.4 % (11.5-14.5); WHITE BLOOD COUNT 7.6 10^3/uL (4.5-11.0)
[2018-07-01 09:21] LABS: ALB/GLOB RATIO 0.8 (1.1-1.8); ALBUMIN 2.9 g/dL (3.0-4.8); ALT/SGPT 17 U/L (7-56); AST/SGOT 40 U/L (17-59); BLOOD UREA NITROGEN 22 mg/dL (7-21); GFR NON-AFRICAN AMERICAN > 60
[2018-07-01] MEDS: Pantoprazole 40 mg Susp UD PEG SCH (10:45)
--- NOTE | 2018-07-01 13:36 | PN ---
DATE: 07/01/2018 SUBJECTIVE: The patient is in bed in no acute distress, nontoxic. The patient was seen earlier this morning. Family members are asleep in the chair. PHYSICAL EXAMINATION: VITAL SIGNS: Temperature of 99, blood pressure is 109/60, respiratory rate of 18. HEENT: Unremarkable. NECK: Supple. LUNGS: Have decreased breath sounds. HEART: Normal S1, S2. ABDOMEN: Soft. LABORATORY EXAMINATION: Reveals a white count of 7.6, hemoglobin of 9, BUN of 22, creatinine of 0.4. Urinalysis is noted and serology is noted. Microbiology reveals the cultures are negative and current orders reveals the patient to be off of antibiotics. ASSESSMENT AND PLAN: A 62-year-old male was seen earlier today initially had gone to [facility], he had a cerebrovascular accident in [facility] and was hospitalized there for over 1 month. He received suprapubic catheter, percutaneous endoscopic gastrostomy tube placement, tracheostomy. The patient with a past history of Parkinson's disease. Currently is completed the antibiotic therapy, off of antibiotics and afebrile. Normal white count; however, the patient is at risk for developing nosocomial infections. Aren Webb MD
--- NOTE | 2018-07-01 14:43 | CP.PCM.PN ---
<Babak Fofana - Last Filed: 07/01/18 14:34> Subjective - Date & Time of Evaluation Date of Evaluation: 07/01/18 Time of Evaluation: 11:00 - Subjective Subjective: Babak Fofana PGY1 [facility] Medicine Progress Note Patient seen and examined at bedside this morning. No acute events reported overnight. Patient able to walk with PT yesterday. Patient pending approval acute rehab facility. Denies any new complaints at this time. Objective - Vital Signs/Intake and Output Vital Signs (last 24 hours): Temp Pulse Resp BP Pulse Ox 98.2 F 69 20 109/53 L 96 07/01/18 14:00 07/01/18 14:00 07/01/18 14:00 07/01/18 14:00 07/01/18 14:00 Intake and Output: 07/01/18 07/01/18 06:59 18:59 Intake Total 630 Output Total 200 Balance 430 - Medications Medications: Current Medications Albuterol/Ipratropium (Duoneb 3 Mg/0.5 Mg (3 Ml) Ud) 3 ml IH [id number] [facility] Last Admin: 07/01/18 14:10 Dose: 3 ml Atorvastatin Calcium (Lipitor) 80 mg PEG DIN [facility] Last Admin: 06/30/18 17:11 Dose: 80 mg Carbidopa/Levodopa (Sinemet) 1 tab PEG 1100,1600 [facility] Last Admin: 07/01/18 10:45 Dose: 1 tab Carbidopa/Levodopa (Sinemet 10/100) 2 tab PEG 0700 [facility] Last Admin: 07/01/18 08:16 Dose: 2 tab Clopidogrel Bisulfate (Plavix) 75 mg PEG DAILY [facility] Last Admin: 07/01/18 10:45 Dose: 75 mg Hydrochlorothiazide (Hydrodiuril) 12.5 mg PEG DAILY [facility] Last Admin: 06/23/18 10:15 Dose: 12.5 mg Pantoprazole Sodium (Protonix Susp) 40 mg PEG DAILY [facility] Last Admin: 07/01/18 10:45 Dose: 40 mg - Labs Labs: 07/01/18 08:45 07/01/18 08:45 PT 14.2 SECONDS (9.4-12.5) H 06/26/18 12:20 INR 1.26 06/26/18 12:20 APTT 33.8 Seconds (26.9-38.3) 06/26/18 12:20 - Constitutional Appears: Non-toxic - Head Exam Head Exam: ATRAUMATIC, NORMAL INSPECTION, NORMOCEPHALIC Additional comments: - Eye Exam Eye Exam: EOMI, Normal appearance, PERRL Pupil Exam: NORMAL ACCOMODATION, PERRL - ENT Exam ENT Exam: Mucous Membranes Moist, Normal Exam - Neck Exam Additional comments: Tracheostomy tube in place, clean and non bleeding/draining - Respiratory Exam Respiratory Exam: Clear to Auscultation Bilateral, NORMAL BREATHING PATTERN, no respiratory distress - Cardiovascular Exam Cardiovascular Exam: REGULAR RHYTHM, no tachycardia - GI/Abdominal Exam GI & Abdominal Exam: Normal Bowel Sounds, Soft. PEG Tube in place, site is c/d/i. Suprapubic catheter in place site is c/d/i. absent: Tenderness, rebound, guarding - Extremities Exam Extremities exam: Positive for: normal inspection. 5/5 muscle strength in upper and lower extremities B/L - Neurological Exam Neurological exam: Awake, Alert, CN II-XII Intact, Moves all extremities without difficulty. No focal motor/sensory deficits noted. No unilateral motor weakness appreciated. Resting tremor with masked facies present . - Psychiatric Exam Psychiatric exam: Normal Affect, Normal Mood - Skin Skin Exam: Dry, Intact, Normal Color, Warm Assessment and Plan - Assessment and Plan (Free Text) Assessment: 62 M with PMHx HTN, Parkinson's Disease, Recent CVA complicated by tracheostomy tube, PEG tube, Suprapubic catheter (Hospitalized 1 month ago in [facility]) who presented to [facility] for mild shortness of breath with increased respiratory secretions due to recent tracheostomy tube placement and +Sputum Cultures. Patient has no focal neurological deficits. Neurology, Pulmonology, and ID are on consult. Patient's insurance recently terminated, will not qualify for home PT/nurse aid/services/rehab. Patient to have physical therapy until functionally clear to go home. Family educated on trach and PEG tube care. No chest tube at this time as per pulmonology. Awaiting cytology results. Discharge to home vs acute rehab. Plan: Chronic CVA with Small Acute Infarct -PT recommending acute rehab/ [facility], however patient's insurance does qualify at this time. Patient's ambulation tolerance improving with physical therapy -patient pending approval for acute rehab, however family wishes to take patient home -will continue discussion with patient and family on acute rehab vs home discharge -CT head shows no acute intracranial abnormality. Ordered for transient left sided weakness, now resolved -Continue to work with PT for improvement in functional status including ambulation and walking stairs -continue aspirin, lipitor 80mg -06/18 MRI Brain: small 7mm acute infarct at R-cerebellar hemisphere. Chronic infarcts in joya and R-medulla. Chronic infarct in L-occipital lobe. -06/18 MRA Head: chronic occlusions -06/16 CT head: chronic lacunar infarctions in bilateral basal ganglia and chronic infarction in the left occipital. -06/16 CT Head/Neck: unremarkable -Carotid US: negative -Echo: EF 61%. Mod-severe aortic regurgitation. Bicuspid aortic valve. Right pleural effusion -pulm on consult, recommends no chest tube at this time -s/p thoracentesis 06/28, 125cc straw colored fluid removed -pleural fluid pH 7, cloudy, elevated WBC, RBC, cell count - concerning for infectious etiology -awaiting pleural glucose, LDH, TG results -quantiferon pending -CT chest 06/29 shows dense consolidation in the right lower lobe and the medial aspect of the left lower lobe. Findings are most consistent with pneumonia. There is moderate size right pleural effusion. -as per ID, now off antibiotics -CXR 06/26: interval development of moderate right pleural effusion with presumable compressive atelectasis in right lower lobe Hx Suprapubic Cath -urology on consult, Dr. Odell, E -family is requesting evaluation for continued need of suprapubic catheter -f/u outpatient urology upon discharge Hypokalemia - resolved -monitor Hx PEG Tube -continue tube feeding diet -family educated on PEG tube care Respiratory Secretions - improved -2/2 Recent Tracheostomy Tube Placement -family educated on trach care -patient has been afebrile -continue trach suctioning as needed -sputum cx previously positive for klebsiella, serratia marcescens -now off antibiotics -repeat blood cultures negative for 5 days -urine culture growing yeast -continue chest PT, trach care -aspiration precautions, HOB elevated -elevate head of bed -ID and pulmonology on consult Hx of HTN - HCTZ 12.5mg on hold, Lisinopril 10mg daily -will consider decreasing lisinopril if BP low - continue to monitor Hx of HLD -continue Lipitor 80mg daily Hx of Parkinson's disease -continue Carbidopa-Levodopa, amantadine ppx: -protonix Patient seen and case discussed with attending, Dr. Prado <Maryam Prado - Last Filed: 07/03/18 14:21> Objective - Vital Signs/Intake and Output Vital Signs (last 24 hours): Temp Pulse Resp BP Pulse Ox 99.3 F 71 18 104/61 95 07/03/18 14:00 07/03/18 14:00 07/03/18 14:00 07/03/18 14:00 07/03/18 14:00 Intake and Output: 07/03/18 07/03/18 06:59 18:59 Intake Total 1700 Output Total 400 Balance 1300 - Medications Medications: Current Medications Carbidopa/Levodopa (Sinemet ) 2 tab PEG 0700 [facility] Last Admin: 07/03/18 10:35 Dose: 2 tab Clopidogrel Bisulfate (Plavix) 75 mg PEG DAILY [facility] Last Admin: 07/03/18 10:35 Dose: 75 mg Hydrochlorothiazide (Hydrodiuril) 12.5 mg PEG DAILY [facility] Last Admin: 06/23/18 10:15 Dose: 12.5 mg Pantoprazole Sodium (Protonix Susp) 40 mg PEG DAILY [facility] Last Admin: 07/03/18 10:35 Dose: 40 mg - Labs Labs: 07/03/18 07:00 07/03/18 07:00 PT 14.2 SECONDS (9.4-12.5) H 06/26/18 12:20 INR 1.26 06/26/18 12:20 APTT 33.8 Seconds (26.9-38.3) 06/26/18 12:20 Attending/Attestation - Attestation I have personally seen and examined this patient.: Yes I have fully participated in the care of the patient.: Yes I have reviewed all pertinent clinical information, including history, physical exam and plan: Yes Notes (Text): 07/03/18 14:21 Medical record note made by the resident after discussion with my direction and input after the patient was personally seen and examined by me. I have reviewed the chart and agree that the record accurately reflects by personal performance of the history, physical exam, data review, and medical decision-making, in the course for the patient. I have also personally directed the plan of care.
--- NOTE | 2018-07-01 16:28 | PCM.URO ---
Urology Progress Note - Objective Lab Studies: Reviewed (spt - plug and monitor urine output and post void and bun cr) Lab Results Last 24 Hours: Laboratory Results - last 24 hr 07/01/18 07/01/18 08:45 08:45 WBC 7.6 RBC 3.33 L Hgb 9.4 L Hct 31.0 L MCV 93.1 MCH 28.2 MCHC 30.3 L RDW 14.4 Plt Count 278 MPV 9.7 Neut % (Auto) 78.6 H Lymph % (Auto) 17.2 L [place] % (Auto) 3.2 Eos % (Auto) 0.9 L Baso % (Auto) 0.1 Lymph # (Auto) 1.3 [place] # (Auto) 0.2 Eos # (Auto) 0.1 Baso # (Auto) 0.01 Absolute Neuts (auto) 5.97 Sodium 143 Potassium 3.8 Chloride 107 Carbon Dioxide 28 Anion Gap 12 BUN 22 H Creatinine 0.4 L Est GFR ( Amer) > 60 Est GFR (Non-Af Amer) > 60 Random Glucose 116 H Calcium 8.0 L Total Bilirubin 0.4 AST 40 ALT 17 Alkaline Phosphatase 95 Total Protein 6.6 Albumin 2.9 L Globulin 3.7 Albumin/Globulin Ratio 0.8 L Intake & Output: Intake & Output 06/30/18 07/01/18 07/01/18 18:59 06:59 18:59 Intake Total 630 Output Total 200 Balance 430 Intake: Tube Feeding 380 Other 250 Output: Urine 200 Urethral (Rosen) 200 Vital Signs: Vital Signs - 24 hr 06/30/18 07/01/18 07/01/18 21:55 06:00 14:00 Temperature 99.1 F 99.9 F H 98.2 F Pulse Rate 83 75 69 Respiratory 18 20 20 Rate Blood Pressure 116/63 109/62 109/53 L O2 Sat by Pulse 93 L 97 96 Oximetry
[2018-07-02] MEDS: Albuterol-Ipratrop 3 mg / 0.5 (3 ml) UD IH SCH ×3 (01:42→13:21)
[2018-07-02 07:09] LABS: BASO # 0.01 K/mm3 (0.0-2.0); BASO % 0.1 % (0.0-3.0); EOS # 0.2 (0.0-0.7); EOS % 2.4 % (1.5-5.0); HEMOGLOBIN 9.2 g/dL (14.0-18.0); LYMPH # 1.6 (1.2-3.4); LYMPH % 18.7 % (22.0-35.0); MEAN CELL VOLUME 94.2 fl (80.0-105.0); MEAN CORPUSCULAR HGB CONC 29.8 g/dl (31.0-37.0); MEAN PLATELET VOLUME 10.1 fl (7.0-11.0); MONO # 0.3 (0.1-0.6); MONO % 3.8 % (1.0-6.0); RBC 3.28 10^6/uL (3.5-6.1); RED CELL DISTRIBUTION WIDTH 14.5 % (11.5-14.5); WHITE BLOOD COUNT 8.4 10^3/uL (4.5-11.0)
[2018-07-02 07:26] LABS: ALB/GLOB RATIO 0.8 (1.1-1.8); ALBUMIN 2.8 g/dL (3.0-4.8); ALT/SGPT 26 U/L (7-56); AST/SGOT 40 U/L (17-59); BLOOD UREA NITROGEN 24 mg/dL (7-21); CALCIUM 8.2 mg/dL (8.4-10.5); GFR NON-AFRICAN AMERICAN > 60
[2018-07-02] MEDS: Pantoprazole 40 mg Susp UD PEG SCH (10:13)
--- NOTE | 2018-07-02 11:23 | PN ---
DATE: 07/02/2018 SUBJECTIVE: The patient is seen earlier today 571, bed 1. No changes. No fevers. No chills, uneventful night. The patient's family member are in the chair, asleep. PHYSICAL EXAMINATION: VITAL SIGNS: Temperature is 99, blood pressure is 113/60, respiratory rate of 18. HEENT: Unremarkable. NECK: Supple. LUNGS: Decreased breath sounds. HEART: Normal S1 and S2. ABDOMEN: Soft. REVIEW OF ORDERS: Reveals the patient is not on any antibiotics. LABORATORY DATA: Reveals the white count is 8.4, hemoglobin of 9. Chemistries are noted to be within normal limits. Urinalysis is noted. Microbiology reveals the cultures are negative. ASSESSMENT AND PLAN: A 62-year-old male who seen earlier today, has been visiting [facility] and had a cerebrovascular accident in [facility] and was hospitalized for one month and has suprapubic catheter, percutaneous endoscopic gastrostomy tube placement and tracheostomy, history of Parkinson's disease, currently off of antibiotics. The patient is at risk for developing nosocomial infections. Aren Webb MD
--- NOTE | 2018-07-02 12:52 | CP.PCM.PN ---
<Babak Fofaan - Last Filed: 07/02/18 12:44> Subjective - Date & Time of Evaluation Date of Evaluation: 07/02/18 Time of Evaluation: 11:30 - Subjective Subjective: Babak Fofana PGY1 Hospital Medicine Progress Note Patient seen and examined at bedside this morning. No acute events reported overnight. Patient denies any acute complaints at this time. He was put on [place] cath yesterday. Discussion with family and patient concerning discharge to rehab vs home. Objective - Vital Signs/Intake and Output Vital Signs (last 24 hours): Temp Pulse Resp BP Pulse Ox 99.2 F 69 18 113/64 96 07/01/18 22:48 07/01/18 22:48 07/01/18 22:48 07/01/18 22:48 07/01/18 22:48 Intake and Output: 07/02/18 07/02/18 06:59 18:59 Intake Total 1050 Balance 1050 - Medications Medications: Current Medications Albuterol/Ipratropium (Duoneb 3 Mg/0.5 Mg (3 Ml) Ud) 3 ml IH [id number] [facility] Last Admin: 07/02/18 07:32 Dose: 3 ml Carbidopa/Levodopa (Sinemet) 1 tab PEG 1100,1600 [facility] Last Admin: 07/02/18 10:13 Dose: 1 tab Carbidopa/Levodopa (Sinemet 10/100) 2 tab PEG 0700 [facility] Last Admin: 07/02/18 10:13 Dose: 2 tab Clopidogrel Bisulfate (Plavix) 75 mg PEG DAILY [facility] Last Admin: 07/02/18 10:13 Dose: 75 mg Hydrochlorothiazide (Hydrodiuril) 12.5 mg PEG DAILY [facility] Last Admin: 06/23/18 10:15 Dose: 12.5 mg Pantoprazole Sodium (Protonix Susp) 40 mg PEG DAILY [facility] Last Admin: 07/02/18 10:13 Dose: 40 mg - Labs Labs: 07/02/18 06:30 07/02/18 06:30 PT 14.2 SECONDS (9.4-12.5) H 06/26/18 12:20 INR 1.26 06/26/18 12:20 APTT 33.8 Seconds (26.9-38.3) 06/26/18 12:20 - Constitutional Appears: Non-toxic - Head Exam Head Exam: ATRAUMATIC, NORMAL INSPECTION, NORMOCEPHALIC Additional comments: - Eye Exam Eye Exam: EOMI, Normal appearance, PERRL Pupil Exam: NORMAL ACCOMODATION, PERRL - ENT Exam ENT Exam: Mucous Membranes Moist, Normal Exam - Neck Exam Additional comments: Tracheostomy tube in place, clean and non bleeding/draining - Respiratory Exam Respiratory Exam: Clear to Auscultation Bilateral, NORMAL BREATHING PATTERN, no respiratory distress - Cardiovascular Exam Cardiovascular Exam: REGULAR RHYTHM, no tachycardia - GI/Abdominal Exam GI & Abdominal Exam: Normal Bowel Sounds, Soft. PEG Tube in place, site is c/d/i. [place] cath noted. suprapubic cath is clamped. absent: Tenderness, rebound, guarding - Extremities Exam Extremities exam: Positive for: normal inspection. 5/5 muscle strength in upper and lower extremities B/L - Neurological Exam Neurological exam: Awake, Alert, CN II-XII Intact, Moves all extremities without difficulty. No focal motor/sensory deficits noted. No unilateral motor weakness appreciated. Resting tremor with masked facies present . - Psychiatric Exam Psychiatric exam: Normal Affect, Normal Mood - Skin Skin Exam: Dry, Intact, Normal Color, Warm Assessment and Plan - Assessment and Plan (Free Text) Assessment: 62 M with PMHx HTN, Parkinson's Disease, Recent CVA complicated by tracheostomy tube, PEG tube, Suprapubic catheter (Hospitalized 1 month ago in [facility]) who presented to [facility] for mild shortness of breath with increased respiratory secretions due to recent tracheostomy tube placement and +Sputum Cultures. Patient has no focal neurological deficits. Neurology, Pulmonology, and ID are on consult. Patient's insurance recently terminated, will not qualify for home PT/nurse aid/services/rehab. Patient to have physical therapy until functionally clear to go home. Family educated on trach and PEG tube care. No chest tube at this time as per pulmonology. Family and patient currently deciding between rehab and discharge home. Plan: Chronic CVA with Small Acute Infarct- at functional baseline -patient pending approval for acute rehab, patient/family currently deciding -will continue discussion with patient and family on acute rehab vs home discharge -CT head shows no acute intracranial abnormality. Ordered for transient left sided weakness, now resolved -Continue to work with PT for improvement in functional status including ambulation and walking stairs -continue aspirin, lipitor 80mg -06/18 MRI Brain: small 7mm acute infarct at R-cerebellar hemisphere. Chronic infarcts in joya and R-medulla. Chronic infarct in L-occipital lobe. -06/18 MRA Head: chronic occlusions -06/16 CT head: chronic lacunar infarctions in bilateral basal ganglia and chronic infarction in the left occipital. -06/16 CT Head/Neck: unremarkable -Carotid US: negative -Echo: EF 61%. Mod-severe aortic regurgitation. Bicuspid aortic valve. Right pleural effusion -pulm on consult, recommends no chest tube at this time -s/p thoracentesis 06/28, 125cc straw colored fluid removed -pleural fluid pH 7, cloudy, elevated WBC, RBC, cell count -cytology consistent with exudative infiltrate -TB quantiferon negative -CT chest 06/29 shows dense consolidation in the right lower lobe and the medial aspect of the left lower lobe. Findings are most consistent with pneumonia. There is moderate size right pleural effusion. -as per ID, now off antibiotics -CXR 06/26: interval development of moderate right pleural effusion with presumable compressive atelectasis in right lower lobe Hx PEG Tube -continue tube feeding diet -family educated on PEG tube care Hx Suprapubic Cath -urology on consult, Dr. Odell, E -suprapubic cath clamped, started on [place] cath -bladder scan revealed 262cc on 07/01 -family is requesting evaluation for continued need of suprapubic catheter -f/u outpatient urology upon discharge Hypokalemia - resolved -monitor Respiratory Secretions - improving -2/2 Recent Tracheostomy Tube Placement -family educated on trach care -patient has been afebrile -continue trach suctioning as needed -sputum cx previously positive for klebsiella, serratia marcescens -now off antibiotics -repeat blood cultures negative for 5 days -urine culture growing yeast -continue chest PT, trach care -aspiration precautions, HOB elevated -elevate head of bed -ID and pulmonology on consult Hx of HTN - HCTZ 12.5mg on hold -continue to monitor Hx of HLD -continue Lipitor 80mg daily Hx of Parkinson's disease -continue Carbidopa-Levodopa, amantadine ppx: -protonix Patient seen and case discussed with attending, Dr. Prado <Maryam Prado - Last Filed: 07/03/18 14:20> Objective - Vital Signs/Intake and Output Vital Signs (last 24 hours): Temp Pulse Resp BP Pulse Ox 99.3 F 71 18 104/61 95 07/03/18 14:00 07/03/18 14:00 07/03/18 14:00 07/03/18 14:00 07/03/18 14:00 Intake and Output: 07/03/18 07/03/18 06:59 18:59 Intake Total 1700 Output Total 400 Balance 1300 - Medications Medications: Current Medications Carbidopa/Levodopa (Sinemet ) 2 tab PEG 0700 [facility] Last Admin: 07/03/18 10:35 Dose: 2 tab Clopidogrel Bisulfate (Plavix) 75 mg PEG DAILY [facility] Last Admin: 07/03/18 10:35 Dose: 75 mg Hydrochlorothiazide (Hydrodiuril) 12.5 mg PEG DAILY [facility] Last Admin: 06/23/18 10:15 Dose: 12.5 mg Pantoprazole Sodium (Protonix Susp) 40 mg PEG DAILY [facility] Last Admin: 07/03/18 10:35 Dose: 40 mg - Labs Labs: 07/03/18 07:00 07/03/18 07:00 PT 14.2 SECONDS (9.4-12.5) H 06/26/18 12:20 INR 1.26 06/26/18 12:20 APTT 33.8 Seconds (26.9-38.3) 06/26/18 12:20 Attending/Attestation - Attestation I have personally seen and examined this patient.: Yes I have fully participated in the care of the patient.: Yes I have reviewed all pertinent clinical information, including history, physical exam and plan: Yes Notes (Text): 07/03/18 14:20 Medical record note made by the resident after discussion with my direction and input after the patient was personally seen and examined by me. I have reviewed the chart and agree that the record accurately reflects by personal performance of the history, physical exam, data review, and medical decision-making, in the course for the patient. I have also personally directed the plan of care.
--- NOTE | 2018-07-02 19:16 | CON ---
DATE: 07/01/2018 UROLOGY CONSULTATION REASON FOR CONSULTATION: Urinary retention and urinary incontinence and further management. HISTORY OF PRESENT ILLNESS: The patient is a very pleasant 62-year-old gentleman, he was in the [place] on vacation. He has a baseline history of neurologic diseases. While there, apparently he had a CVA. He currently has a tracheostomy in place and an indwelling suprapubic, and Urology is consulted for further management. The family wants to know if we can remove it. See the plans list below. PAST MEDICAL AND SURGICAL HISTORY: As listed below. REVIEW OF SYSTEMS: As listed above. No other Urology note. Of significant note, the patent's daughter showed me a video of the patient ambulating today. This is significant because seeing the patient here lying in bed and him ambulating is making good progress. Apparently he is progressing slowly, but well, with a lot of optimism. PHYSICAL EXAMINATION: GENITOURINARY: Essentially unremarkable from the Urology standpoint. The catheter is in place and is draining. DIAGNOSES: Urinary incontinence and insertion of a cystostomy tube and management. The issue we have had to address is a 62-year-old gentleman. From the Urology standpoint, as long as he is not retaining urine it would be reasonable to remove it, although he is drastically incontinent. I explained to the daughter with pictures very clearly about neurologic issues after a cerebrovascular accident. I also explained to the patient what we could do in terms of management and diagnostic studies, etcetera. PLAN: After discussing this the plan will be as follows; 1. We are going to put a catheter plug in the suprapubic catheter. This will allow the urinary bladder to fill up to see if the patient can urinate well or if he has urinary incontinence. But even if he is incontinent, we will accept this. As long as it is not retention back pressure up to the kidney. So in this regard what we are going to do is plug the catheter and put a condom catheter on the penis and measure his urine output there. Then we will check every 6 hours, we will check a residual from the suprapubic and see if the patient is retaining urine. At the same line, we will also follow the patient's BUN and creatinine and also we can follow the hydronephrosis. Assuming that after we follow the patient for a while that the patient has no hydronephrosis, no change in BUN and creatinine and a low postvoid residual, we would then consider removing the suprapubic catheter. The patient and the family did not want a Rosen catheter; so at this point, at least the patient is draining from the bladder, but they would like to see what else we can offer. So again the plan is as follows; 1. Flush the suprapubic catheter, we are going to put a catheter plug in. 2. Every 6 hours, we are going to monitor the postvoid residual by unplugging it and waiting. Given the size of the catheter, we may to have to wait as long as 2 or 3 minutes just to measure the urine output so we can check the residual with this. 3. We will monitor urine output from below. 4. We will monitor the BUN and creatinine. 5. We will need an ultrasound to monitor the upper tract. Ten Odell MD
[2018-07-03 07:48] LABS: BASO # 0.02 K/mm3 (0.0-2.0); BASO % 0.2 % (0.0-3.0); EOS # 0.2 (0.0-0.7); EOS % 1.7 % (1.5-5.0); HEMOGLOBIN 9.4 g/dL (14.0-18.0); LYMPH # 1.5 (1.2-3.4); LYMPH % 16.9 % (22.0-35.0); MEAN CELL VOLUME 93.1 fl (80.0-105.0); MEAN CORPUSCULAR HEMOGLOBIN 28.1 pg (25.0-35.0); MEAN CORPUSCULAR HGB CONC 30.1 g/dl (31.0-37.0); MEAN PLATELET VOLUME 10.2 fl (7.0-11.0); MONO # 0.3 (0.1-0.6); MONO % 3.7 % (1.0-6.0); RBC 3.35 10^6/uL (3.5-6.1); RED CELL DISTRIBUTION WIDTH 14.2 % (11.5-14.5); WHITE BLOOD COUNT 8.8 10^3/uL (4.5-11.0)
[2018-07-03 08:01] LABS: ALB/GLOB RATIO 0.8 (1.1-1.8); ALBUMIN 2.8 g/dL (3.0-4.8); ALT/SGPT 24 U/L (7-56); AST/SGOT 42 U/L (17-59); BLOOD UREA NITROGEN 21 mg/dL (7-21); CALCIUM 8.3 mg/dL (8.4-10.5); GFR NON-AFRICAN AMERICAN > 60
--- NOTE | 2018-07-03 10:26 | CP.PCM.PN ---
<Babak Fofana - Last Filed: 07/03/18 10:20> Subjective - Date & Time of Evaluation Date of Evaluation: 07/03/18 Time of Evaluation: 09:30 - Subjective Subjective: Babak Fofana PGY1 [facility] Medicine Progress Note Patient seen and examined at bedside this morning. No acute events reported overnight. Patient seen sitting in chair comfortably. Denies any issues at this time. Suprapubic catheter continues to be clamped. Discharge planning for Thursday. Patient and family still deciding on discharge home vs rehab. Objective - Vital Signs/Intake and Output Vital Signs (last 24 hours): Temp Pulse Resp BP Pulse Ox 99 F 71 18 122/66 96 07/02/18 22:00 07/02/18 22:00 07/02/18 22:00 07/02/18 22:00 07/02/18 22:00 Intake and Output: 07/03/18 07/03/18 06:59 18:59 Intake Total 1700 Output Total 400 Balance 1300 - Medications Medications: Current Medications Carbidopa/Levodopa (Sinemet 10/100) 2 tab PEG 0700 [facility] Last Admin: 07/02/18 10:13 Dose: 2 tab Clopidogrel Bisulfate (Plavix) 75 mg PEG DAILY [facility] Last Admin: 07/02/18 10:13 Dose: 75 mg Hydrochlorothiazide (Hydrodiuril) 12.5 mg PEG DAILY [facility] Last Admin: 06/23/18 10:15 Dose: 12.5 mg Pantoprazole Sodium (Protonix Susp) 40 mg PEG DAILY [facility] Last Admin: 07/02/18 10:13 Dose: 40 mg - Labs Labs: 07/03/18 07:00 07/03/18 07:00 PT 14.2 SECONDS (9.4-12.5) H 06/26/18 12:20 INR 1.26 06/26/18 12:20 APTT 33.8 Seconds (26.9-38.3) 06/26/18 12:20 - Constitutional Appears: Non-toxic - Head Exam Head Exam: ATRAUMATIC, NORMAL INSPECTION, NORMOCEPHALIC Additional comments: - Eye Exam Eye Exam: EOMI, Normal appearance, PERRL Pupil Exam: NORMAL ACCOMODATION, PERRL - ENT Exam ENT Exam: Mucous Membranes Moist, Normal Exam - Neck Exam Additional comments: Tracheostomy tube in place, clean and non bleeding/draining - Respiratory Exam Respiratory Exam: Clear to Auscultation Bilateral, NORMAL BREATHING PATTERN, no respiratory distress - Cardiovascular Exam Cardiovascular Exam: REGULAR RHYTHM, no tachycardia - GI/Abdominal Exam GI & Abdominal Exam: Normal Bowel Sounds, Soft. PEG Tube in place, site is c/d/i. [place] cath noted. suprapubic cath is clamped. absent: Tenderness, rebou nd, guarding - Extremities Exam Extremities exam: Positive for: normal inspection. 5/5 muscle strength in upper and lower extremities B/L - Neurological Exam Neurological exam: Awake, Alert, CN II-XII Intact, Moves all extremities without difficulty. No focal motor/sensory deficits noted. No unilateral motor weakness appreciated. Resting tremor with masked facies present . - Psychiatric Exam Psychiatric exam: Normal Affect, Normal Mood - Skin Skin Exam: Dry, Intact, Normal Color, Warm Assessment and Plan - Assessment and Plan (Free Text) Assessment: 62 M with PMHx HTN, Parkinson's Disease, Recent CVA complicated by tracheostomy tube, PEG tube, Suprapubic catheter (Hospitalized 1 month ago in [facility]) who presented [place] [facility] for [place] shortness of breath with increased respiratory secretions due to recent tracheostomy tube placement and +Sputum Cultures. Patient has no focal neurological deficits. Neurology, Pulmonology, and ID are on consult. Patient's insurance recently terminated, will not qualify for home PT/nurse aid/services/rehab. Patient to have physical therapy until functionally clear to go home. Family educated on trach and PEG tube care. No chest tube at this time as per pulmonology. Family and patient currently deciding between rehab and discharge home. Discharge planning for Thursday Plan: Chronic CVA with Small Acute Infarct- at functional baseline -patient pending approval for acute rehab, patient/family currently deciding -discharge planning for Thursday per patient and families decision -CT head shows no acute intracranial abnormality. Ordered for transient left sided weakness, now resolved -Continue to work with PT for improvement in functional status including am bulation and walking stairs -continue aspirin, lipitor 80mg -06/18 MRI Brain: small 7mm acute infarct at R-cerebellar hemisphere. Chronic infarcts in joya and R-medulla. Chronic infarct in L-occipital lobe. -06/18 MRA Head: chronic occlusions -06/16 CT head: chronic lacunar infarctions in bilateral basal ganglia and chronic infarction in the left occipital. -06/16 CT Head/Neck: unremarkable -Carotid US: negative -Echo: EF 61%. Mod-severe aortic regurgitation. Bicuspid aortic valve. Hx Suprapubic Cath -urology on consult, Dr. Odell, E -per urology, consider removing suprapubic catheter if no hydronephrosis, no change in BUN/Cr, and low postvoid residual -positive fluid balance of 1300 cc on 07/03, voided 400cc overnight -suprapubic cath clamped, started on [place] cath -bladder scan revealed 262cc on 07/01 -family is requesting evaluation for continued need of suprapubic catheter -f/u outpatient urology upon discharge Right pleural effusion -pulm on consult, recommends no chest tube at this time -s/p thoracentesis 06/28, 125cc straw colored fluid removed -pleural fluid pH 7, cloudy, elevated WBC, RBC, cell count -cytology consistent with exudative infiltrate -TB quantiferon negative -CT chest 06/29 shows dense consolidation in the right lower lobe and the medial aspect of the left lower lobe. Findings are most consistent with pneumonia. There is moderate size right pleural effusion. -as per ID, now off antibiotics -CXR 06/26: interval development of moderate right pleural effusion with presumable compressive atelectasis in right lower lobe Hx PEG Tube -continue tube feeding diet -family educated on PEG tube care Hypokalemia - resolved -monitor Respiratory Secretions - improving -2/ Recent Tracheostomy Tube Placement -family educated on trach care -patient has been afebrile -continue trach suctioning as needed -sputum cx previously positive for klebsiella, serratia marcescens -now off antibiotics -repeat blood cultures negative for 5 days -urine culture growing yeast -continue chest PT, trach care -aspiration precautions, HOB elevated -elevate head of bed -ID and pulmonology on consult Hx of HTN - HCTZ 12.5mg on hold -continue to monitor Hx of HLD -continue Lipitor 80mg daily Hx of Parkinson's disease -continue Carbidopa-Levodopa, amantadine ppx: -protonix Patient seen and case discussed with attending, Dr. Prado <Maryam Prado - Last Filed: 07/03/18 14:18> Objective - Vital Signs/Intake and Output Vital Signs (last 24 hours): Temp Pulse Resp BP Pulse Ox 99 F 71 18 122/66 96 07/02/18 22:00 07/02/18 22:00 07/02/18 22:00 07/02/18 22:00 07/02/18 22:00 Intake and Output: 07/03/18 07/03/18 06:59 18:59 Intake Total 1700 Output Total 400 Balance 1300 - Medications Medications: Current Medications Carbidopa/Levodopa (Sinemet 10/100) 2 tab PEG 0700 [facility] Last Admin: 07/03/18 10:35 Dose: 2 tab Clopidogrel Bisulfate (Plavix) 75 mg PEG DAILY [facility] Last Admin: 07/03/18 10:35 Dose: 75 mg Hydrochlorothiazide (Hydrodiuril) 12.5 mg PEG DAILY [facility] Last Admin: 06/23/18 10:15 Dose: 12.5 mg Pantoprazole Sodium (Protonix Susp) 40 mg PEG DAILY [facility] Last Admin: 07/03/18 10:35 Dose: 40 mg - Labs Labs: 07/03/18 07:00 07/03/18 07:00 PT 14.2 SECONDS (9.4-12.5) H 06/26/18 12:20 INR 1.26 06/26/18 12:20 APTT 33.8 Seconds (26.9-38.3) 06/26/18 12:20 Attending/Attestation - Attestation I have personally seen and examined this patient.: Yes I have fully participated in the care of the patient.: Yes I have reviewed all pertinent clinical information, including history, physical exam and plan: Yes Notes (Text): 07/03/18 14:11 Patient was seen and examined with medical geneticist. 62 year old male with past medical history of hypertension, dyslipidemia, Parkinson's disease and recent CVA s/p trach s/p PEG and s/p suprapubic catheter was with increased secretions from trach. Tracheal cultures grew Klebsiella Pneumonia and Serratia Marcescens. Initial CXR was negative. Patient was treated with IV Cefepime . Repeat chest xray 06/25 was done as patient was dyspnic, showed interval development of moderate right pleural effusion.Patient underwent thoracocentesis.Fluid studies are exudative.Cultures are negative.As per ID, patient is afebrile, there is no leukocytosis, hypoxia is at base line, there is no need for further antibiotics.As per Pulmonary there is no need for chest tube/Pleural catheter.Patient clinically is at his base line. PT is following and recommending acute rehab. Family has not made any final decision regarding placement. Continue with physical therapy with stairs training with d/c planning home with family support once cleared by PT Continue with family education for trach/PEG care. Management plan was discussed in detail with patient. Education was provided.
[2018-07-03] MEDS: Pantoprazole 40 mg Susp UD PEG SCH (10:35)
--- NOTE | 2018-07-04 01:43 | PN ---
DATE: 07/03/2018 SUBJECTIVE: The patient is in bed, in no acute distress, nontoxic. PHYSICAL EXAMINATION: VITAL SIGNS: Temperature is 99, blood pressure is 104/60, respiratory rate of 18. HEENT: Unremarkable. NECK: Supple. LUNGS: Decreased breath sounds. HEART: Normal S1, S2. ABDOMEN: Soft. LABORATORY DATA: White count of 8.8, hemoglobin 9, BUN 21, creatinine 0.4. Urinalysis is noted and serology is noted. Microbiology is noted. ASSESSMENT AND PLAN: The patient is 62-year-old who was seen early this morning. The patient is comfortable. There are family members at bedside, sleeping in a chair. The patient was in [facility] [place] where he had a cerebrovascular accident, was hospitalized for one month, has a suprapubic catheter, PEG tube placement, tracheostomy, and the patient has Parkinson's disease, currently off of antibiotics. He is at risk for developing nosocomial infection. Aren Webb MD
[2018-07-04 07:47] LABS: BASO # 0.02 K/mm3 (0.0-2.0); BASO % 0.2 % (0.0-3.0); EOS # 0.1 (0.0-0.7); EOS % 1.2 % (1.5-5.0); LYMPH # 1.5 (1.2-3.4); LYMPH % 17.9 % (22.0-35.0); MEAN CELL VOLUME 93.2 fl (80.0-105.0); MEAN CORPUSCULAR HEMOGLOBIN 27.9 pg (25.0-35.0); MEAN CORPUSCULAR HGB CONC 29.9 g/dl (31.0-37.0); MEAN PLATELET VOLUME 9.9 fl (7.0-11.0); MONO # 0.4 (0.1-0.6); MONO % 4.2 % (1.0-6.0); RBC 3.23 10^6/uL (3.5-6.1); RED CELL DISTRIBUTION WIDTH 14.3 % (11.5-14.5); WHITE BLOOD COUNT 8.5 10^3/uL (4.5-11.0)
[2018-07-04 07:58] LABS: ALB/GLOB RATIO 0.8 (1.1-1.8); ALBUMIN 2.7 g/dL (3.0-4.8); ALT/SGPT 23 U/L (7-56); AST/SGOT 39 U/L (17-59); BLOOD UREA NITROGEN 23 mg/dL (7-21); GFR NON-AFRICAN AMERICAN > 60
--- NOTE | 2018-07-04 08:58 | PN ---
DATE: 07/04/2018 SUBJECTIVE: The patient is seen in room 571, bed 1. No fevers or chills. PHYSICAL EXAMINATION VITAL SIGNS: Temperature is 99, blood pressure is 123/60, respiratory rate of 20. HEENT: Unremarkable. NECK: Supple. LUNGS: Have decreased breath sounds. HEART: Normal S1, S2. ABDOMEN: Soft. LABORATORY EXAMINATION: Reveals a white count of 8.5, hemoglobin of 9, BUN of 23, creatinine of 0.4 and. Pleural fluid is noted. Serology is noted. QuantiFERON is negative. Microbiology reveals the cultures are negative. MEDICATIONS: Currently, the patient is off of antibiotics.. ASSESSMENT AND PLAN: This is a 62-year-old who was seen earlier who was in [facility] [place] had cerebrovascular accident, hospitalized there for 1 month and does have suprapubic catheter, percutaneous endoscopic gastrostomy tube and tracheostomy. The patient also has a long history of Parkinson's. Currently off of antibiotics, afebrile. The patient is at risk for developing nosocomial infections. Aren Webb MD
[2018-07-04] MEDS: Pantoprazole 40 mg Susp UD PEG SCH (09:06)
--- NOTE | 2018-07-04 13:19 | CP.PCM.PN ---
<Babak Fofana - Last Filed: 07/04/18 13:10> Subjective - Date & Time of Evaluation Date of Evaluation: 07/04/18 Time of Evaluation: 09:10 - Subjective Subjective: Babak Fofana PGY1 [facility] Medicine Progress Note Patient seen and examined at bedside this morning. No acute events reported overnight. Patient denies any complaints at this time. Patient and family have decided on rehab for placement. Discharge planning this week to rehab. Objective - Vital Signs/Intake and Output Vital Signs (last 24 hours): Temp Pulse Resp BP Pulse Ox 99.7 F H 65 20 123/64 96 07/03/18 22:19 07/03/18 22:19 07/03/18 22:19 07/03/18 22:19 07/03/18 22:19 - Medications Medications: Current Medications Carbidopa/Levodopa (Sinemet ) 2 tab PEG 0700 [facility] Last Admin: 07/04/18 08:44 Dose: 2 tab Clopidogrel Bisulfate (Plavix) 75 mg PEG DAILY [facility] Last Admin: 07/04/18 09:06 Dose: 75 mg Hydrochlorothiazide (Hydrodiuril) 12.5 mg PEG DAILY [facility] Last Admin: 06/23/18 10:15 Dose: 12.5 mg Pantoprazole Sodium (Protonix Susp) 40 mg PEG DAILY [facility] Last Admin: 07/04/18 09:06 Dose: 40 mg - Labs Labs: 07/04/18 07:00 07/04/18 07:00 PT 14.2 SECONDS (9.4-12.5) H 06/26/18 12:20 INR 1.26 06/26/18 12:20 APTT 33.8 Seconds (26.9-38.3) 06/26/18 12:20 - Constitutional Appears: Non-toxic - Head Exam Head Exam: ATRAUMATIC, NORMAL INSPECTION, NORMOCEPHALIC Additional comments: - Eye Exam Eye Exam: EOMI, Normal appearance, PERRL Pupil Exam: NORMAL ACCOMODATION, PERRL - ENT Exam ENT Exam: Mucous Membranes Moist, Normal Exam - Neck Exam Additional comments: Tracheostomy tube in place, clean and non bleeding/draining - Respiratory Exam Respiratory Exam: Clear to Auscultation Bilateral, NORMAL BREATHING PATTERN, no respiratory distress - Cardiovascular Exam Cardiovascular Exam: REGULAR RHYTHM, no tachycardia - GI/Abdominal Exam GI & Abdominal Exam: Normal Bowel Sounds, Soft. PEG Tube in place, site is c/d/i. [place] cath noted. suprapubic cath is clamped. absent: Tenderness, rebound, guarding - Extremities Exam Extremities exam: Positive for: normal inspection. 5/5 muscle strength in upper and lower extremities B/L - Neurological Exam Neurological exam: Awake, Alert, CN II-XII Intact, Moves all extremities without difficulty. No focal motor/sensory deficits noted. No unilateral motor weakness appreciated. Resting tremor with masked facies present . - Psychiatric Exam Psychiatric exam: Normal Affect, Normal Mood - Skin Skin Exam: Dry, Intact, Normal Color, Warm Assessment and Plan - Assessment and Plan (Free Text) Assessment: 62 M with PMHx HTN, Parkinson's Disease, Recent CVA complicated by tracheostomy tube, PEG tube, Suprapubic catheter (Hospitalized 1 month ago in [facility]) who presented [place] [facility] [place] mild shortness of breath with increased respiratory secretions due to recent tracheostomy tube placement and +Sputum Cu ltures. Patient has no focal neurological deficits. Neurology, Pulmonology, and ID are on consult. Patient's insurance recently terminated, will not qualify for home PT/nurse aid/services/rehab. Patient to have physical therapy until functionally clear to go home. Family educated on trach and PEG tube care. No chest tube at this time as per pulmonology. Patient and family agreeable to discharge to rehab, plan for placement this week. 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 Ordered for transient left sided weakness, now resolved -Continue to work with PT for improvement in functional status including ambulation and walking stairs -06/18 MRI Brain: small 7mm acute infarct at R-cerebellar hemisphere. Chronic infarcts in joya and R-medulla. Chronic infarct in L-occipital lobe. -06/18 MRA Head: chronic occlusions -06/16 CT head: chronic lacunar infarctions in bilateral basal ganglia and chronic infarction in the left occipital. -06/16 CT Head/Neck: unremarkable -Carotid US: negative -Echo: EF 61%. Mod-severe aortic regurgitation. Bicuspid aortic valve. -ASA/statin/plavix Hx Suprapubic Cath -urology on consult, Dr. Odell, E -per urology, consider removing suprapubic catheter if no hydronephrosis, no change in BUN/Cr, and low postvoid residual -follow up urology recommendations for suprapubic catheter for discharge -bladder scan revealed 262cc on 07/01 -family is requesting evaluation for continued need of suprapubic catheter -f/u outpatient urology upon discharge Right pleural effusion -pulm on consult, recommends no chest tube at this time -s/p thoracentesis 06/28, 125cc straw colored fluid removed -pleural fluid pH 7, cloudy, elevated WBC, RBC, cell count -cytology consistent with exudative infiltrate -TB quantiferon negative -CT chest 06/29 shows dense consolidation in the right lower lobe and the medial aspect of the left lower lobe. Findings are most consistent with pneumonia. There is moderate size right pleural effusion. -as per ID, now off antibiotics -CXR 06/26: interval development of moderate right pleural effusion with presumable compressive atelectasis in right lower lobe Hx PEG Tube -continue tube feeding diet -family educated on PEG tube care Hypokalemia - resolved -monitor Respiratory Secretions - improving -2/ Recent Tracheostomy Tube Placement -family educated on trach care -patient has been afebrile -continue trach suctioning as needed -sputum cx previously positive for klebsiella, serratia marcescens -now off antibiotics -repeat blood cultures negative for 5 days -urine culture growing yeast -continue chest PT, trach care -aspiration precautions, HOB elevated -elevate head of bed -ID and pulmonology on consult Hx of HTN - HCTZ 12.5mg on hold -continue to monitor Hx of HLD -continue Lipitor 80mg daily Hx of Parkinson's disease -continue Carbidopa-Levodopa, amantadine ppx: -protonix Patient seen and case discussed with attending, Dr. Prado <Maryam Prado - Last Filed: 07/04/18 13:50> Objective - Vital Signs/Intake and Output Vital Signs (last 24 hours): Temp Pulse Resp BP Pulse Ox 99.7 F H 65 20 123/64 96 07/03/18 22:19 07/03/18 22:19 07/03/18 22:19 07/03/18 22:19 07/03/18 22:19 - Medications Medications: Current Medications Aspirin (Ecotrin) 81 mg PO 0800 [facility] Atorvastatin Calcium (Lipitor) 80 mg PO DIN [facility] Carbidopa/Levodopa (Sinemet 10/100) 2 tab PEG 0700 [facility] Last Admin: 07/04/18 08:44 Dose: 2 tab Clopidogrel Bisulfate (Plavix) 75 mg PEG DAILY [facility] Last Admin: 07/04/18 09:06 Dose: 75 mg Hydrochlorothiazide (Hydrodiuril) 12.5 mg PEG DAILY [facility] Last Admin: 06/23/18 10:15 Dose: 12.5 mg Pantoprazole Sodium (Protonix Susp) 40 mg PEG DAILY [facility] Last Admin: 07/04/18 09:06 Dose: 40 mg - Labs Labs: 07/04/18 07:00 07/04/18 07:00 PT 14.2 SECONDS (9.4-12.5) H 06/26/18 12:20 INR 1.26 06/26/18 12:20 APTT 33.8 Seconds (26.9-38.3) 06/26/18 12:20 Attending/Attestation - Attestation I have personally seen and examined this patient.: Yes I have fully participated in the care of the patient.: Yes I have reviewed all pertinent clinical information, including history, physical exam and plan: Yes Notes (Text): 07/04/18 13:49 Medical record note made by the resident after discussion with my direction and input after the patient was personally seen and examined by me. I have reviewed the chart and agree that the record accurately reflects by personal performance of the history, physical exam, data review, and medical decision-making, in the course for the patient. I have also personally directed the plan of care. 62 year old male with past medical history of hypertension, dyslipidemia, Parkinson's disease and recent CVA s/p trach s/p PEG and s/p suprapubic catheter was with increased secretions from trach. Tracheal cultures grew Klebsiella Pneumonia and Serratia Marcescens. Initial CXR was negative. Patient was treated with IV Cefepime . Repeat chest x-ray 06/25 was done as patient was dyspnic, showed interval development of moderate right pleural effusion. Patient underwent thoracocentesis.Fluid studies are exudative. Cultures are negative. As per ID, patient is afebrile, there is no leukocytosis, hypoxia is at base line, there is no need for further antibiotics. As per Pulmonary there is no need for chest tube/Pleural catheter. Patient clinically is at his base line.He is tolerating feeding PT is following and recommending acute rehab. Patient got some insurance now, Family was not making any final decision regarding placement. Family finally agreed for rehab placement today, We will inform case management on Thursday.
[2018-07-05 07:22] LABS: BASO # 0.01 K/mm3 (0.0-2.0); BASO % 0.1 % (0.0-3.0); EOS # 0.1 (0.0-0.7); EOS % 1.2 % (1.5-5.0); HEMOGLOBIN 9.4 g/dL (14.0-18.0); LYMPH # 1.7 (1.2-3.4); LYMPH % 19.8 % (22.0-35.0); MEAN CELL VOLUME 92.3 fl (80.0-105.0); MEAN CORPUSCULAR HEMOGLOBIN 27.7 pg (25.0-35.0); MEAN PLATELET VOLUME 9.8 fl (7.0-11.0); MONO # 0.4 (0.1-0.6); MONO % 4.8 % (1.0-6.0); RBC 3.39 10^6/uL (3.5-6.1); RED CELL DISTRIBUTION WIDTH 14.5 % (11.5-14.5); WHITE BLOOD COUNT 8.4 10^3/uL (4.5-11.0)
[2018-07-05 07:38] LABS: ALB/GLOB RATIO 0.8 (1.1-1.8); ALBUMIN 2.8 g/dL (3.0-4.8); ALT/SGPT 24 U/L (7-56); AST/SGOT 35 U/L (17-59); BLOOD UREA NITROGEN 23 mg/dL (7-21); CALCIUM 8.1 mg/dL (8.4-10.5); GFR NON-AFRICAN AMERICAN > 60
[2018-07-05] MEDS: Pantoprazole 40 mg Susp UD PEG SCH (09:39)
--- NOTE | 2018-07-05 16:36 | CP.PCM.PN ---
<Luis Eduardo Brady - Last Filed: 07/05/18 16:30> Subjective - Date & Time of Evaluation Date of Evaluation: 07/05/18 Time of Evaluation: 07:30 - Subjective Subjective: Patient seen and examined at bedside. Patient with at bedside. Patient vomited overnight after bolus feeding. Patient with no complaints this morning. Patient has trouble speaking secondary to prior CVA. Objective - Vital Signs/Intake and Output Vital Signs (last 24 hours): Temp Pulse Resp BP Pulse Ox 98.7 F 96 H 20 97/62 L 100 07/04/18 21:46 07/04/18 21:46 07/04/18 21:46 07/04/18 21:46 07/04/18 21:46 - Medications Medications: Current Medications Aspirin (Ecotrin) 81 mg PO 0800 [facility] Last Admin: 07/05/18 09:38 Dose: 81 mg Atorvastatin Calcium (Lipitor) 80 mg PO DIN [facility] Last Admin: 07/04/18 17:33 Dose: 80 mg Carbidopa/Levodopa (Sinemet 10/100) 2 tab PEG 0700 [facility] Last Admin: 07/05/18 09:38 Dose: 2 tab Clopidogrel Bisulfate (Plavix) 75 mg PEG DAILY [facility] Last Admin: 07/05/18 09:38 Dose: 75 mg Hydrochlorothiazide (Hydrodiuril) 12.5 mg PEG DAILY [facility] Last Admin: 06/23/18 10:15 Dose: 12.5 mg Pantoprazole Sodium (Protonix Susp) 40 mg PEG DAILY [facility] Last Admin: 07/05/18 09:39 Dose: 40 mg - Labs Labs: 07/05/18 07:00 07/05/18 07:00 PT 14.2 SECONDS (9.4-12.5) H 06/26/18 12:20 INR 1.26 06/26/18 12:20 APTT 33.8 Seconds (26.9-38.3) 06/26/18 12:20 - Constitutional Appears: Non-toxic, No Acute Distress - Head Exam Head Exam: ATRAUMATIC, NORMAL INSPECTION, NORMOCEPHALIC - ENT Exam Additional comments: Trach collar - Respiratory Exam Respiratory Exam: Clear to Ausculation Bilateral, NORMAL BREATHING PATTERN. absent: Rales, Rhonchi, Wheezes - Cardiovascular Exam Cardiovascular Exam: RRR, +S1, +S2. absent: Gallop, Rubs, Murmur - GI/Abdominal Exam GI & Abdominal Exam: Soft, Normal Bowel Sounds. absent: Tenderness Additional comments: PEG tube in place Suprapubic catheter in place - Extremities Exam Extremities Exam: absent: Calf Tenderness, Pedal Edema - Neurological Exam Neurological Exam: Alert, Awake, Oriented x3 - Psychiatric Exam Psychiatric exam: Flat Affect - Skin Skin Exam: Dry, Intact, Normal Color, Warm Assessment and Plan - Assessment and Plan (Free Text) Plan: 62 M with PMHx HTN, Parkinson's Disease, Recent CVA complicated by tracheostomy tube, PEG tube, Suprapubic catheter who presented with shortness of breath and subsequently found to have Acute on chronic CVA. Patient's stay has been complicated by insurance issues, but patient now has insurance and is pending placement at rehab. Acute on chronic CVA, resolved CT head shows no acute intracranial abnormality. Ordered for transient left sided weakness, now resolved 06/18 MRI Brain: small 7 mm acute infarct at R-cerebellar hemisphere. Chronic infarcts in joya and R-medulla. Chronic infarct in L-occipital lobe. 06/18 MRA Head: chronic occlusions 06/16 CT head: chronic lacunar infarctions in bilateral basal ganglia and chronic infarction in the left occipital. Echo: EF 61%. Mod-severe aortic regurgitation. Bicuspid aortic valve. Continue ASA/statin/plavix Continue PT Hx Suprapubic Cath urology on consult, Dr. Odell Catheter capped today by Urology f/u outpatient urology upon discharge Right pleural effusion pulmonary consulted S/p thoracentesis, exudative TB quantiferon negative CT chest 06/29 shows dense consolidation in the right lower lobe and the medial aspect of the left lower lobe. Findings are most consistent with pneumonia. There is moderate size right pleural effusion. No antibiotics Hx PEG Tube Held AM feeding secondary to vomiting Will continue in afternoon Hx of HTN Normotensive Hold anti-hypertensives Hx of HLD Continue Lipitor 80mg daily Hx of Parkinson's disease Continue Carbidopa-Levodopa, amantadine PPX Protonix SCDs Jose Antonio, PGY-3 <Anh Beard - Last Filed: 07/05/18 17:58> Objective - Vital Signs/Intake and Output Vital Signs (last 24 hours): Temp Pulse Resp BP Pulse Ox 98.7 F 96 H 20 97/62 L 100 07/04/18 21:46 07/04/18 21:46 07/04/18 21:46 07/04/18 21:46 07/04/18 21:46 - Medications Medications: Current Medications Aspirin (Ecotrin) 81 mg PO 0800 [facility] Last Admin: 07/05/18 09:38 Dose: 81 mg Atorvastatin Calcium (Lipitor) 80 mg PO DIN [facility] Last Admin: 07/04/18 17:33 Dose: 80 mg Carbidopa/Levodopa (Sinemet 10/) 2 tab PEG 0700 [facility] Last Admin: 07/05/18 09:38 Dose: 2 tab Clopidogrel Bisulfate (Plavix) 75 mg PEG DAILY [facility] Last Admin: 07/05/18 09:38 Dose: 75 mg Hydrochlorothiazide (Hydrodiuril) 12.5 mg PEG DAILY [facility] Last Admin: 06/23/18 10:15 Dose: 12.5 mg Pantoprazole Sodium (Protonix Susp) 40 mg PEG DAILY [facility] Last Admin: 07/05/18 09:39 Dose: 40 mg - Labs Labs: 07/05/18 07:00 07/05/18 07:00 PT 14.2 SECONDS (9.4-12.5) H 06/26/18 12:20 INR 1.26 06/26/18 12:20 APTT 33.8 Seconds (26.9-38.3) 06/26/18 12:20 Attending/Attestation - Attestation I have personally seen and examined this patient.: Yes I have fully participated in the care of the patient.: Yes I have reviewed all pertinent clinical information, including history, physical exam and plan: Yes Notes (Text): 07/05/18 17:52 62 year old male with past medical history of Parkinson's disease, hyperten stion, dyslipidemia and recent CVA s/p trach s/p PEG s/p suprapubic catheter who presented with increased secretions from trach. Trach cultures grew Klebsiella Pneumonia and Serratia Marcescens and patient was treated with iv antibiotics. Repeat CXR showed moderatate right pleural effusion and patient underwent thoracocentesis. As per ID no further need for antibiotics and as per pulmonary no need for chest tube or pleural catheter. CT/MRI was reviewed as above. Patient is on aspirin, plavix and statin. PT is following who recommended acute rehab. Will again follow up with CMx/Sw as his insurance status is now active. Anh Beard MD Hospitalist.
--- NOTE | 2018-07-05 21:10 | PN ---
DATE: 07/05/2018 SUBJECTIVE: The patient is in bed, in no acute distress, nontoxic, was seen earlier today. PHYSICAL EXAMINATION: VITAL SIGNS: Temperature is 98, blood pressure is 97/60, respiratory rate 18. HEENT: Unremarkable. NECK: Supple. LUNGS: Decreased breath sounds. HEART: Normal S1, S2. ABDOMEN: Soft, nontender. LABORATORY DATA: Reveals a white count of 8.4, hemoglobin of 9, BUN of 23, creatinine of 0.4. Urinalysis is noted. Serology is noted. Microbiology is noted. ASSESSMENT AND PLAN: This is a 62-year-old, who was seen earlier. In [place], the patient had a cerebrovascular accident and suprapubic catheter, percutaneous endoscopic gastrostomy tube and tracheostomy, long history of Parkinson's disease. Currently now off of antibiotics, afebrile. The patient is at risk for developing nosocomial infections. Aren Webb MD
[2018-07-06 07:25] LABS: BASO # 0.01 K/mm3 (0.0-2.0); BASO % 0.1 % (0.0-3.0); EOS # 0.1 (0.0-0.7); EOS % 0.8 % (1.5-5.0); HEMOGLOBIN 9.6 g/dL (14.0-18.0); LYMPH # 1.5 (1.2-3.4); LYMPH % 18.4 % (22.0-35.0); MEAN CELL VOLUME 92.2 fl (80.0-105.0); MEAN CORPUSCULAR HEMOGLOBIN 27.9 pg (25.0-35.0); MEAN CORPUSCULAR HGB CONC 30.3 g/dl (31.0-37.0); MEAN PLATELET VOLUME 9.8 fl (7.0-11.0); MONO # 0.3 (0.1-0.6); MONO % 3.8 % (1.0-6.0); RBC 3.44 10^6/uL (3.5-6.1); RED CELL DISTRIBUTION WIDTH 14.3 % (11.5-14.5)
[2018-07-06 08:08] LABS: ALB/GLOB RATIO 0.8 (1.1-1.8); ALBUMIN 2.8 g/dL (3.0-4.8); ALT/SGPT 25 U/L (7-56); AST/SGOT 46 U/L (17-59); BLOOD UREA NITROGEN 22 mg/dL (7-21); GFR NON-AFRICAN AMERICAN > 60
[2018-07-06] MEDS: Pantoprazole 40 mg Susp UD PEG SCH (11:51)
--- NOTE | 2018-07-06 16:31 | CP.PCM.PN ---
<Lee Cote - Last Filed: 07/06/18 16:28> Subjective - Date & Time of Evaluation Date of Evaluation: 07/06/18 Time of Evaluation: 16:28 - Subjective Subjective: Lee Cote, PGY-1, Internal Medicine Progress Note for Dr. Beard Patient seen and evaluated at bedside. Patient had no acute overnight events. He continues to have increased secretions from tracheostomy. Tracheostomy is unable to be fenestrated at this time due to increased secretions. Patient was able to successfully walk with PT today. 12-point ROS was unattainable due to patient's current status. Objective - Vital Signs/Intake and Output Vital Signs (last 24 hours): Temp Pulse Resp BP Pulse Ox 99.2 F 85 17 124/65 94 L 07/06/18 14:00 07/06/18 14:00 07/06/18 14:00 07/06/18 14:00 07/06/18 14:00 Intake and Output: 07/06/18 07/06/18 06:59 18:59 Intake Total 1640 Output Total 470 Balance 1170 - Medications Medications: Current Medications Aspirin (Ecotrin) 81 mg PO 0800 [facility] Last Admin: 07/06/18 08:32 Dose: 81 mg Atorvastatin Calcium (Lipitor) 80 mg PO DIN [facility] Last Admin: 07/05/18 18:15 Dose: 80 mg Carbidopa/Levodopa (Sinemet 10/100) 2 tab PEG 0700 [facility] Last Admin: 07/06/18 08:32 Dose: 2 tab Clopidogrel Bisulfate (Plavix) 75 mg PEG DAILY [facility] Last Admin: 07/06/18 11:51 Dose: 75 mg Hydrochlorothiazide (Hydrodiuril) 12.5 mg PEG DAILY [facility] Last Admin: 06/23/18 10:15 Dose: 12.5 mg Pantoprazole Sodium (Protonix Susp) 40 mg PEG DAILY [facility] Last Admin: 07/06/18 11:51 Dose: 40 mg - Labs Labs: 07/06/18 07:00 07/06/18 07:00 PT 14.2 SECONDS (9.4-12.5) H 06/26/18 12:20 INR 1.26 06/26/18 12:20 APTT 33.8 Seconds (26.9-38.3) 06/26/18 12:20 - Constitutional Appears: Well, Non-toxic, No Acute Distress - Head Exam Head Exam: ATRAUMATIC, NORMAL INSPECTION, NORMOCEPHALIC - Eye Exam Eye Exam: EOMI, PERRL - ENT Exam ENT Exam: Mucous Membranes Moist - Neck Exam Additional comments: tracheostomy in place with copious secretions - Respiratory Exam Additional comments: upper lobe crackles - Cardiovascular Exam Cardiovascular Exam: REGULAR RHYTHM, RRR, +S1, +S2. absent: Clicks, Gallop, Rubs - GI/Abdominal Exam GI & Abdominal Exam: Soft, Normal Bowel Sounds. absent: Distended, Firm, Guarding, Tenderness - Extremities Exam Additional comments: able to walk but unsteady gait. residual left sided weakness - Neurological Exam Neurological Exam: Alert, Awake Additional comments: unable to fully evaluate - Psychiatric Exam Psychiatric exam: Normal Affect, Normal Mood - Skin Skin Exam: Dry, Intact, Normal Color Assessment and Plan - Assessment and Plan (Free Text) Assessment: 62 year old male with past medical history of hypertension, Parkinson's disease, recent CVA complicated by tracheostomy, PEG, suprapubic catheter presented for shortness of breath with increased respiratory secretions due to recent tracheostomy tube placement and positive sputum cultures. Patient now has Medicaid. However, there have been issues with obtaining rehabilitation/home PT. Patient is to have physical therpay until functionally clear to go home. Family has been educated on tracheostomy and PEG tube care. Plan: Chronic CVA with small acute infarct -MRI on 06/18: small 7 mm acute infarct of right cerebellar hemisphere. chronic infarcts of joya and right medulla. chronic right infarct of left occipital lobe -Carotid ultrasound, EKG, echocardiogram showed no etiology for stroke -Continue with aspirin, lipitor, plavix -Patient has respiratory secretions from tracheostomy. -Family has been educated about tracheostomy and PEG care. -Sputum culture was initially positive for klebsiella, serratia and is now off a ntibiotics -Continue with physical therapy and tracheostomy care -Cannot fenestrate as per surgery due to copious secretions -Aspiration precautions and HOB elevated to 45 degrees -PEG tube in place and should continue tube feeding diet -Suprapubic catheter capped and currently has condom catheter -Family agreeable to rehab. Following up with Rehab for acceptance Right pleural effusion -Status post thoracentesis on 06/28 with 125 cc aspirated -Cloudy, 1370 WBC, 39870 RBC, 100 total cell count, 56.7 mononuclear cell, 43.3 polymorphonuclear cell -Pleural protein: 5 -Pleural glucose: 88 -Pleural T -Thoracentesis pH: 7 -Not currently on antibiotics History of hypertension -Hold antihypertensives History of hyperlipidemia -Continue lipitor History of Parkinson's -Continue with Carbidopa/Levodopa GI prophylaxis: protonix DVT prophylaxis: SCD Disposition: Will follow up with Case management about acceptance to [facility] Patient plan discussed with Dr. Beard. <Anh Beard - Last Filed: 07/06/18 17:15> Objective - Vital Signs/Intake and Output Vital Signs (last 24 hours): Temp Pulse Resp BP Pulse Ox 99.2 F 85 17 124/65 94 L 07/06/18 14:00 07/06/18 14:00 07/06/18 14:00 07/06/18 14:00 07/06/18 14:00 Intake and Output: 07/06/18 07/06/18 06:59 18:59 Intake Total 1640 Output Total 470 Balance 1170 - Medications Medications: Current Medications Aspirin (Ecotrin) 81 mg PO 0800 [facility] Last Admin: 07/06/18 08:32 Dose: 81 mg Atorvastatin Calcium (Lipitor) 80 mg PO DIN [facility] Last Admin: 07/05/18 18:15 Dose: 80 mg Carbidopa/Levodopa (Sinemet 10/) 2 tab PEG 0700 [facility] Last Admin: 07/06/18 08:32 Dose: 2 tab Clopidogrel Bisulfate (Plavix) 75 mg PEG DAILY [facility] Last Admin: 07/06/18 11:51 Dose: 75 mg Hydrochlorothiazide (Hydrodiuril) 12.5 mg PEG DAILY [facility] Last Admin: 06/23/18 10:15 Dose: 12.5 mg Pantoprazole Sodium (Protonix Susp) 40 mg PEG DAILY [facility] Last Admin: 07/06/18 11:51 Dose: 40 mg - Labs Labs: 07/06/18 07:00 07/06/18 07:00 PT 14.2 SECONDS (9.4-12.5) H 06/26/18 12:20 INR 1.26 06/26/18 12:20 APTT 33.8 Seconds (26.9-38.3) 06/26/18 12:20 Attending/Attestation - Attestation I have personally seen and examined this patient.: Yes I have fully participated in the care of the patient.: Yes I have reviewed all pertinent clinical information, including history, physical exam and plan: Yes Notes (Text): 07/06/18 17:14 62 year old male with past medical history of Parkinson's disease, hypertenstion, dyslipidemia and recent CVA s/p trach s/p PEG s/p suprapubic catheter who presented with increased secretions from trach. Trach cultures grew Klebsiella Pneumonia and Serratia Marcescens and patient was treated with iv antibiotics. Repeat CXR showed moderatate right pleural effusion and patient underwent thoracocentesis. As per ID no further need for antibiotics and as per pulmonary no need for chest tube or pleural catheter. CT/MRI was reviewed as above. Patient is on aspirin, plavix and statin. PT is following who recommended acute rehab. Will follow up with CMx/Sw regarding possible d/c planning to [place]. Anh Beard MD Hospitalist.
[2018-07-07 07:20] LABS: BASO # 0.01 K/mm3 (0.0-2.0); BASO % 0.1 % (0.0-3.0); EOS % 0.4 % (1.5-5.0); HEMOGLOBIN 9.5 g/dL (14.0-18.0); LYMPH # 1.3 (1.2-3.4); MEAN CELL VOLUME 92.3 fl (80.0-105.0); MEAN CORPUSCULAR HGB CONC 30.4 g/dl (31.0-37.0); MEAN PLATELET VOLUME 9.8 fl (7.0-11.0); MONO # 0.3 (0.1-0.6); MONO % 3.7 % (1.0-6.0); RBC 3.39 10^6/uL (3.5-6.1); RED CELL DISTRIBUTION WIDTH 14.5 % (11.5-14.5); WHITE BLOOD COUNT 8.4 10^3/uL (4.5-11.0)
[2018-07-07 08:08] LABS: ALB/GLOB RATIO 0.7 (1.1-1.8); ALBUMIN 2.6 g/dL (3.0-4.8); ALT/SGPT 32 U/L (7-56); AST/SGOT 47 U/L (17-59); BLOOD UREA NITROGEN 20 mg/dL (7-21); CALCIUM 7.9 mg/dL (8.4-10.5); GFR NON-AFRICAN AMERICAN > 60
[2018-07-07 08:20] VITALS: BP 116/63; PULSE 81; RESP 18; TEMP 98.2; O2SAT 96
--- NOTE | 2018-07-07 08:32 | PN ---
DATE: 07/06/2018 SUBJECTIVE: The patient is seen in bed, in no acute distress. The patient was seen earlier today in 571. PHYSICAL EXAMINATION: VITAL SIGNS: The patient's temperature is 99, blood pressure is 120/60, respiratory rate 17. HEENT: Unremarkable. NECK: Supple. LUNGS: Decreased breath sounds. HEART: Normal S1 and S2. ABDOMEN: Soft. LABORATORY DATA: Laboratory examination reveals a white count of 8000, hemoglobin 9.6. Chemistries are noted. Urinalysis is noted. Serology is noted. Microbiology is reviewed. Review of orders. ASSESSMENT AND PLAN: This is a 62-year-old male, seen earlier today who was in [place], cerebrovascular accident, suprapubic catheter, percutaneous endoscopic gastrostomy tube, tracheostomy, and also has a history of Parkinson's disease. Currently off of antibiotics and should discontinue . No intravenous antibiotics. No medications were given to minimize . Aren Webb MD
[2018-07-07] MEDS: Pantoprazole 40 mg Susp UD PEG SCH (10:02)
[2018-07-07] MEDS ORDERED: Glycopyrrolate 1 mg/5mL Inj MDV IV PRN (11:05)
[2018-07-07 12:19] VITALS: BMI 17.6
--- NOTE | 2018-07-07 16:17 | CP.PCM.DIS ---
<Lee Cote - Last Filed: 07/07/18 15:55> Provider - Provider Date of Admission: 06/17/18 08:10 Attending physician: Anh Beard MD Primary care physician: JEANNA PRIMARY CARE PROVIDER Consults: 06/16/18 00:27 Physician Consult Routine Comment: Consulting Provider: Naseem Cook Consulting Physician: Naseem Cook Reason for Consult: s/p CVA, unknown cause 06/16/18 00:37 Consult [Physician Consult] Routine Comment: Consulting Provider: Myles Busby Consulting Physician: Myles Busby Reason for Consult: aspiration pneumonia, trach 06/16/18 05:12 Wound Care [Nursing Referral for Wound Care] Routine Comment: Physician Instructions: Reason For Exam: sacral decubitus and lowe left leg ulcer 06/16/18 13:55 Physician Consult Routine Comment: Consulting Provider: Noel Mora Consulting Physician: Noel Mora Reason for Consult: tracheostomy evaluation; with secretions Additional Comments: Pulmonology consult. Patient is stable. 06/28/18 07:48 Radiology Consult Routine Comment: Consulting Provider: Enrique Ellsworth Consulting Physician: Enrique Ellsworth Reason for Consult: diagnostic thoracentesis 06/30/18 11:41 Physician Consult Routine Comment: Consulting Provider: Robert Odell Consulting Physician: Robert Odell Reason for Consult: suprapubic catheter, family wants evaluation for removal 07/01/18 09:03 Nursing Referral for Wound Care Routine Comment: Physician Instructions: Reason For Exam: sacral stage 2 Time Spent in preparation of Discharge (in minutes): 45 Hospital Course - Lab Results Lab Results: Micro Results 06/28/18 15:20 Pleural Fluid Fungal Culture - Preliminary NO FUNGUS GROWTH IN 1 WEEK. 06/28/18 15:20 Pleural Fluid Gram Stain - Final 06/28/18 15:20 Pleural Fluid Anaerobic Culture - Final NO ANAEROBES ISOLATED. 06/28/18 15:20 Pleural Fluid Body Fluid Culture - Final No growth. 06/20/18 06:00 Blood-Venous Blood Culture - Final NO GROWTH AFTER 5 DAYS 06/20/18 06:00 Blood-Venous Gram Stain - Final TEST NOT PERFORMED 06/20/18 06:30 Blood-Venous Blood Culture - Final NO GROWTH AFTER 5 DAYS 06/20/18 06:30 Blood-Venous Gram Stain - Final TEST NOT PERFORMED 06/20/18 16:40 Urine,Catheterized Urine Culture - Final Yeast Species 06/15/18 22:43 Blood Blood Culture - Final NO GROWTH AFTER 5 DAYS 06/15/18 22:43 Blood Gram Stain - Final TEST NOT PERFORMED 06/15/18 22:43 Blood Blood Culture - Final NO GROWTH AFTER 5 DAYS 06/15/18 22:43 Blood Gram Stain - Final TEST NOT PERFORMED 06/17/18 00:15 Trachasp Gram Stain - Final 06/17/18 00:15 Trachasp Sputum Culture - Final Klebsiella Pneumoniae Ssp Pneu Serratia Marcescens 06/17/18 08:00 Naris MRSA Culture (Admit) - Final MRSA NOT DETECTED 06/17/18 00:18 Urine,Suprapubic Urine Culture - Final <10,000 CFU/ML. MULTIPLE SPECIES. PROBABLE CONTAMINATION. Most Recent Lab Values WBC 8.4 10^3/uL (4.5-11.0) 07/07/18 06:45 RBC 3.39 10^6/uL (3.5-6.1) L 07/07/18 06:45 Hgb 9.5 g/dL (14.0-18.0) L 07/07/18 06:45 Hct 31.3 % (42.0-52.0) L 07/07/18 06:45 MCV 92.3 fl (80.0-105.0) 07/07/18 06:45 MCH 28.0 pg (25.0-35.0) 07/07/18 06:45 MCHC 30.4 g/dl (31.0-37.0) L 07/07/18 06:45 RDW 14.5 % (11.5-14.5) 07/07/18 06:45 Plt Count 340 10^3/uL (120.0-450.0) 07/07/18 06:45 MPV 9.8 fl (7.0-11.0) 07/07/18 06:45 Neut % (Auto) 79.8 % (50.0-68.0) H 07/07/18 06:45 Lymph % (Auto) 16.0 % (22.0-35.0) L 07/07/18 06:45 Levy % (Auto) 3.7 % (1.0-6.0) 07/07/18 06:45 Eos % (Auto) 0.4 % (1.5-5.0) L 07/07/18 06:45 Baso % (Auto) 0.1 % (0.0-3.0) 07/07/18 06:45 Lymph # (Auto) 1.3 (1.2-3.4) 07/07/18 06:45 Levy # (Auto) 0.3 (0.1-0.6) 07/07/18 06:45 Eos # (Auto) 0.0 (0.0-0.7) 07/07/18 06:45 Baso # (Auto) 0.01 K/mm3 (0.0-2.0) 07/07/18 06:45 Absolute Neuts (auto) 6.68 (1.4-6.5) H 07/07/18 06:45 PT 14.2 SECONDS (9.4-12.5) H 06/26/18 12:20 INR 1.26 06/26/18 12:20 APTT 33.8 Seconds (26.9-38.3) 06/26/18 12:20 pCO2 35 mm/Hg (35-45) 06/16/18 16:19 pO2 69.0 mm/Hg (80-100) L 06/16/18 16:19 HCO3 24.9 mmol/L (21-28) 06/16/18 16:19 ABG pH 7.46 (7.35-7.45) H 06/16/18 16:19 ABG Total CO2 26.0 mmol.L (22-28) 06/16/18 16:19 ABG O2 Saturation 97.0 % (95-98) 06/16/18 16:19 ABG Base Excess 1.4 mmol/L (-2.0-3.0) 06/16/18 16:19 ABG Potassium 3.5 mmol/L (3.6-5.2) L 06/16/18 16:19 Sodium 140.0 mmol/L (132-148) 06/16/18 16:19 Chloride 107.0 mmol/L (98-107) 06/16/18 16:19 Glucose 74 mg/dl (75-110) L 06/16/18 16:19 Lactate 0.7 mmol/L (0.7-2.1) 06/16/18 16:19 FiO2 28.0 % 06/16/18 16:19 Sodium 145 mmol/L (132-148) 07/07/18 06:45 Potassium 3.5 mmol/L (3.6-5.0) L 07/07/18 06:45 Chloride 110 mmol/L (98-107) H 07/07/18 06:45 Carbon Dioxide 31 mmol/L (21-33) 07/07/18 06:45 Anion Gap 8 (10-20) L 07/07/18 06:45 BUN 20 mg/dL (7-21) 07/07/18 06:45 Creatinine 0.4 mg/dl (0.8-1.5) L 07/07/18 06:45 Est GFR ( Amer) > 60 07/07/18 06:45 Est GFR (Non-Af Amer) > 60 07/07/18 06:45 POC Glucose (mg/dL) 140 mg/dL (65-110) H 06/20/18 02:02 Random Glucose 114 mg/dL (70-110) H 07/07/18 06:45 Hemoglobin A1c 5.0 % (4.2-6.5) 06/16/18 07:30 Calcium 7.9 mg/dL (8.4-10.5) L 07/07/18 06:45 Phosphorus 3.4 mg/dL (2.5-4.5) 06/16/18 07:30 Magnesium 2.1 mg/dL (1.7-2.2) 06/16/18 07:30 Total Bilirubin 0.3 mg/dL (0.2-1.3) 07/07/18 06:45 AST 47 U/L (17-59) 07/07/18 06:45 ALT 32 U/L (7-56) 07/07/18 06:45 Alkaline Phosphatase 93 U/L (38-126) 07/07/18 06:45 NT-Pro-B Natriuret Pep 78.1 pg/mL (0-450) 06/15/18 20:45 Total Protein 6.2 g/dL (5.8-8.3) 07/07/18 06:45 Albumin 2.6 g/dL (3.0-4.8) L 07/07/18 06:45 Globulin 3.6 gm/dL 07/07/18 06:45 Albumin/Globulin Ratio 0.7 (1.1-1.8) L 07/07/18 06:45 Triglycerides 104 mg/dL (35-160) 06/16/18 07:30 Cholesterol 122 mg/dL (130-200) L 06/16/18 07:30 LDL Cholesterol Direct 77 mg/dL (0-129) 06/16/18 07:30 HDL Cholesterol 23 mg/dL (29-60) L 06/16/18 07:30 Procalcitonin 0.13 NG/ML (0.19-0.49) L 06/16/18 07:30 TSH 3rd Generation 1.23 mIU/mL (0.46-4.68) 06/16/18 07:30 Arterial Blood Potassium 3.5 mmol/L (3.6-5.2) L 06/16/18 16:19 Urine Color Yellow (YELLOW) 06/27/18 16:10 Urine Appearance Slight-cloudy (CLEAR) 06/27/18 16:10 Urine pH 6.0 (4.7-8.0) 06/27/18 16:10 Ur Specific [place] 1.025 (1.005-1.035) 06/27/18 16:10 Urine Protein 100 mg/dL (<30 mg/dL) H 06/27/18 16:10 Urine Glucose (UA) Negative mg/dL (NEGATIVE) 06/27/18 16:10 Urine Ketones Negative mg/dL (NEGATIVE) 06/27/18 16:10 Urine Blood Large (NEGATIVE) H 06/27/18 16:10 Urine Nitrate Negative (NEGATIVE) 06/27/18 16:10 Urine Bilirubin Small (NEGATIVE) H 06/27/18 16:10 Urine Urobilinogen 1.0 E.U./dL (<1 E.U./dL) H 06/27/18 16:10 Ur Leukocyte Esterase Moderate [place]/uL (NEGATIVE) H 06/27/18 16:10 Urine RBC 25 - 30 /hpf (0-2) H 06/27/18 16:10 Urine WBC 2 - 5 /hpf (0-6) 06/27/18 16:10 Ur Epithelial Cells None /hpf (0-5) 06/27/18 16:10 Calcium Oxalate Crystal Small /hpf (NONE) 06/27/18 16:10 Urine Bacteria Small /hpf (NONE) 06/27/18 16:10 Urine Other Uyeast /hpf 06/27/18 16:10 Fluid Source Pleural 06/28/18 15:20 Fluid Appearance Cloudy (CLEAR) 06/28/18 15:20 Fluid WBC 1370.0 /uL (0.0-300.0) H 06/28/18 15:20 Fluid RBC 14250.0 /uL (0.0-0.0) H 06/28/18 15:20 Fluid Tot Cell Count 100 (0-0) H 06/28/18 15:20 Fluid Mononuclear Cell 56.7 % (0-0) H 06/28/18 15:20 Fl Polymorphonucl Cell 43.3 % (0-0) H 06/28/18 15:20 Fluid Comment Red 06/28/18 15:20 Pleural Total Protein 5.0 g/dL 06/28/18 15:10 Pleural Glucose 88 mg/dL 06/28/18 15:10 Pleural Triglycerides 34 mg/dL 06/28/18 15:10 Thoracentesis Fluid pH 7.0 06/28/18 15:10 HIV 1&2 Ag/Ab, 4th Gen Nonreactive (Nonreactive) 06/16/18 08:56 TB Test (QFT) Nil 0.03 IU/mL 06/30/18 07:45 TB Test Mitogen - Nil 2.70 IU/mL 06/30/18 07:45 TB Test Antigen - Nil <0.00 IU/mL 06/30/18 07:45 TB Test TB - Nil <0.00 IU/mL 06/30/18 07:45 TB Test (QFT) Negative (Negative) 06/30/18 07:45 - Hospital Course Hospital Course: Lee Cote, PGY-1, Internal Medicine Discharge Summary for Dr. Beard 62 year old male with a past medical history of CVA (1 month ago), tracheostomy, PEG-tube placement, suprapubic catheter placement, hypertension, and Parkinson's disease presented to the ED on 06/16/18 complaining of shortness of breath. Patient arrived from a flight from [facility] on 06/16/18 and flew to [facility] 7 weeks prior to admission for vacation. Patient had a stroke on 05/11/2018 and was hospitalized in the [facility] during which he had a tracheostomy tube, PEG tube, and suprapubic catheter placed. Patient was discharged 3 days prior admission from the hospital. Patient had been bedridden ever since the stroke. Daughter stated that the patient had a fever at home on day of presentation but was unsure of the temperature. She also stated that her father had lost weight due to his hospitalization and was unsure how much weight he lost. During hospital stay, initial chest X ray did not show any acute abnormalities. Patient was afebrile with a slightly elevated WBC count and started on empiric antibiotics with cefepime for pneumonia. Procalcitonin was low, blood cultures were negative for 5 days, urine culture showed probable contamination and sputum culture was positive for klebsiella pneumonia and serratia marcescens. Patient was continued on cefepime for 7 days. Patient had neurology consulted. On 06/16, CTA was unremarkable, CT head showed chronic lacunar infarctions in bilateral basal ganglia and chronic infarction in the left occipital, and CT Head/Neck was unremarkable. Carotid US was negative. Echocardiogram revealed LVEF 61% with moderate-severe aortic regurgitation. MRI Brain on 06/18 showed small 7mm acute infarct at right cerebellar hemisphere. Chronic infarcts were present in joya and right medulla. Chronic infarct was in left occipital lobe. Patient remained in the hospital for acute on chronic CVA and increased respiratory secretions. Per neurology team, no intervention was needed at that time for acute CVA and patient was continued on aspirin, plavix and lipitor. Repeat CXR on 06/26 showed interval development of moderate right pleural effusion with presumable compressive atelectasis in right lower lobe. Patient subsequently had thoracentesis with 125cc of straw colored fluid removed. Pleural fluid pH was 7, cloudy, with elevated WBC, RBC, cell count and cytology consistent with exudat radu infiltrate. TB quantiferon obtained was negative. Urology was consulted for suprapubic catheter and decision was made to cap catheter. Patient received PEG tube feedings throughout admission, and family was educated on PEG tube feedings as well as tracheostomy care. Plan was initially for tracheostomy to be fenestrated prior to discharge but as patient has increased secretions, this will not be possible. Patient's strength increased throughout the admission and patient was able to walk though with unsteady gait yesterday. Family initially preferred to take patient home despite PT recommendations of acute rehab, however family later agreed to rehabilitation. Patient initially had difficulty with insurance for establishing a spot for rehabilitation. However, patient later obtained medicaid and was accepted to [facility] rehabilitation today. Patient was found to be stable and ready for discharge today. Patient was told to follow up with primary care doctor within 3-5 days. Patient was told to follow up with ENT, urology, pulmonology outpatient. Patient was told to take all medications as prescribed. Patient was told to take robinol if patient had increased secretions at rehabilitation. Patient was told to return to the emergency department if she had any new or concerning symptoms. This is a brief summary of the events that occurred during this hospital admission. For more information, please refer to hospital documentation. Discharge Diagnoses Chronic CVA with small acute infarct Right pleural effusion History of hypertension History of Hyperlipidemia History of Parkinson's - Date & Time of H&P Date of H&P: 06/16/18 Time of H&P: 00:23 Discharge Exam - Head Exam Head Exam: ATRAUMATIC, NORMAL INSPECTION, NORMOCEPHALIC - Eye Exam Eye Exam: EOMI, PERRL - Neck Exam Additional comments: tracheostomy in place with copious secretions - Respiratory Exam Respiratory Exam: Clear to PA & Lateral, NORMAL BREATHING PATTERN. absent: Rales, Rhonchi, Wheezes - Cardiovascular Exam Cardiovascular Exam: REGULAR RHYTHM, RRR, +S1, +S2. absent: Tachycardia, Clicks, Gallop, Rubs - GI/Abdominal Exam GI & Abdominal Exam: Normal Bowel Sounds, Soft. absent: Tenderness - Extremities Exam Extremities exam: full ROM, normal capillary refill, normal inspection Additional comments: able to walk but unsteady gait. residual left sided weakness - Neurological Exam Neurological exam: Alert, CN II-XII Intact Additional comments: unable to fully evaluate - Psychiatric Exam Psychiatric exam: Normal Affect, Normal Mood - Skin Skin Exam: Dry, Intact, Normal Color Discharge Plan - Discharge Medications Prescriptions: Aspirin [Ecotrin] 81 mg PO 0800 30 Days #30 tabec Atorvastatin [Lipitor] 80 mg PO DIN 30 Days #30 tab Clopidogrel [Plavix] 75 mg PEG DAILY 30 Days #30 tab - Follow Up Plan Condition: STABLE Disposition: REHAB FACILITY/REHAB UNIT Instructions: Pneumonia, Adult (DC), How to Care for a Tracheostomy, Percutaneous Endoscopic Gastrostomy (DC) Additional Instructions: For free tubefeeding supply donation and more education, contact [email or web address] at [email or web address] Please follow up with your PMD within 3-5 days of discharge. Please follow up with your ENT within 5-7 days of discharge. Please follow up with your urologist within 5-7 days of discharge. Please follow up with your exercise equipment specialist within 5-7 days of discharge. Please take all medications as prescribed. Please consider robinol if patient continues to have increased secretions. Continue with tracheostomy and PEG tube care as instructed. Please return to the ED for any new or worsening symptoms. Referrals: Eitan Vasquez MD [Family Provider] - <Anh Beard - Last Filed: 07/07/18 16:36> Provider - Provider Date of Admission: 06/17/18 08:10 Attending physician: Anh Beard MD Primary care physician: JEANNA PRIMARY CARE PROVIDER Consults: 06/16/18 00:27 Physician Consult Routine Comment: Consulting Provider: Naseem Cook Consulting Physician: Naseem Cook Reason for Consult: s/p CVA, unknown cause 06/16/18 00:37 Consult [Physician Consult] Routine Comment: Consulting Provider: Myles Busby Consulting Physician: Myles Busby Reason for Consult: aspiration pneumonia, trach 06/16/18 05:12 Wound Care [Nursing Referral for Wound Care] Routine Comment: Physician Instructions: Reason For Exam: sacral decubitus and lowe left leg ulcer 06/16/18 13:55 Physician Consult Routine Comment: Consulting Provider: Noel Mora Consulting Physician: Noel Mora Reason for Consult: tracheostomy evaluation; with secretions Additional Comments: Pulmonology consult. Patient is stable. 06/28/18 07:48 Radiology Consult Routine Comment: Consulting Provider: Ernique Ellsworth Consulting Physician: Enrique Ellsworth Reason for Consult: diagnostic thoracentesis 06/30/18 11:41 Physician Consult Routine Comment: Consulting Provider: Robert Odell Consulting Physician: Robert Odell Reason for Consult: suprapubic catheter, family wants evaluation for removal 07/01/18 09:03 Nursing Referral for Wound Care Routine Comment: Physician Instructions: Reason For Exam: sacral stage 2 Hospital Course - Lab Results Lab Results: Micro Results 06/28/18 15:20 Pleural Fluid Fungal Culture - Preliminary NO FUNGUS GROWTH IN 1 WEEK. 06/28/18 15:20 Pleural Fluid Gram Stain - Final 06/28/18 15:20 Pleural Fluid Anaerobic Culture - Final NO ANAEROBES ISOLATED. 06/28/18 15:20 Pleural Fluid Body Fluid Culture - Final No growth. 06/20/18 06:00 Blood-Venous Blood Culture - Final NO GROWTH AFTER 5 DAYS 06/20/18 06:00 Blood-Venous Gram Stain - Final TEST NOT PERFORMED 06/20/18 06:30 Blood-Venous Blood Culture - Final NO GROWTH AFTER 5 DAYS 06/20/18 06:30 Blood-Venous Gram Stain - Final TEST NOT PERFORMED 06/20/18 16:40 Urine,Catheterized Urine Culture - Final Yeast Species 06/15/18 22:43 Blood Blood Culture - Final NO GROWTH AFTER 5 DAYS 06/15/18 22:43 Blood Gram Stain - Final TEST NOT PERFORMED 06/15/18 22:43 Blood Blood Culture - Final NO GROWTH AFTER 5 DAYS 06/15/18 22:43 Blood Gram Stain - Final TEST NOT PERFORMED 06/17/18 00:15 Trachasp Gram Stain - Final 06/17/18 00:15 Trachasp Sputum Culture - Final Klebsiella Pneumoniae Ssp Pneu Serratia Marcescens 06/17/18 08:00 Naris MRSA Culture (Admit) - Final MRSA NOT DETECTED 06/17/18 00:18 Urine,Suprapubic Urine Culture - Final <10,000 CFU/ML. MULTIPLE SPECIES. PROBABLE CONTAMINATION. Most Recent Lab Values WBC 8.4 10^3/uL (4.5-11.0) 07/07/18 06:45 RBC 3.39 10^6/uL (3.5-6.1) L 07/07/18 06:45 Hgb 9.5 g/dL (14.0-18.0) L 07/07/18 06:45 Hct 31.3 % (42.0-52.0) L 07/07/18 06:45 MCV 92.3 fl (80.0-105.0) 07/07/18 06:45 MCH 28.0 pg (25.0-35.0) 07/07/18 06:45 MCHC 30.4 g/dl (31.0-37.0) L 07/07/18 06:45 RDW 14.5 % (11.5-14.5) 07/07/18 06:45 Plt Count 340 10^3/uL (120.0-450.0) 07/07/18 06:45 MPV 9.8 fl (7.0-11.0) 07/07/18 06:45 Neut % (Auto) 79.8 % (50.0-68.0) H 07/07/18 06:45 Lymph % (Auto) 16.0 % (22.0-35.0) L 07/07/18 06:45 Levy % (Auto) 3.7 % (1.0-6.0) 07/07/18 06:45 Eos % (Auto) 0.4 % (1.5-5.0) L 07/07/18 06:45 Baso % (Auto) 0.1 % (0.0-3.0) 07/07/18 06:45 Lymph # (Auto) 1.3 (1.2-3.4) 07/07/18 06:45 Levy # (Auto) 0.3 (0.1-0.6) 07/07/18 06:45 Eos # (Auto) 0.0 (0.0-0.7) 07/07/18 06:45 Baso # (Auto) 0.01 K/mm3 (0.0-2.0) 07/07/18 06:45 Absolute Neuts (auto) 6.68 (1.4-6.5) H 07/07/18 06:45 PT 14.2 SECONDS (9.4-12.5) H 06/26/18 12:20 INR 1.26 06/26/18 12:20 APTT 33.8 Seconds (26.9-38.3) 06/26/18 12:20 pCO2 35 mm/Hg (35-45) 06/16/18 16:19 pO2 69.0 mm/Hg (80-100) L 06/16/18 16: HCO3 24.9 mmol/L (21-28) 06/16/18 16:19 ABG pH 7.46 (7.35-7.45) H 06/16/18 16:19 ABG Total CO2 26.0 mmol.L (22-28) 06/16/18 16:19 ABG O2 Saturation 97.0 % (95-98) 06/16/18 16:19 ABG Base Excess 1.4 mmol/L (-2.0-3.0) 06/16/18 16:19 ABG Potassium 3.5 mmol/L (3.6-5.2) L 06/16/18 16:19 Sodium 140.0 mmol/L (132-148) 06/16/18 16:19 Chloride 107.0 mmol/L (98-107) 06/16/18 16:19 Glucose 74 mg/dl (75-110) L 06/16/18 16:19 Lactate 0.7 mmol/L (0.7-2.1) 06/16/18 16: FiO2 28.0 % 06/16/18 16:19 Sodium 145 mmol/L (132-148) 07/07/18 06:45 Potassium 3.5 mmol/L (3.6-5.0) L 07/07/18 06:45 Chloride 110 mmol/L (98-107) H 07/07/18 06:45 Carbon Dioxide 31 mmol/L (21-33) 07/07/18 06:45 Anion Gap 8 (10-20) L 07/07/18 06:45 BUN 20 mg/dL (7-21) 07/07/18 06:45 Creatinine 0.4 mg/dl (0.8-1.5) L 07/07/18 06:45 Est GFR ( Amer) > 60 07/07/18 06:45 Est GFR (Non-Af Amer) > 60 07/07/18 06:45 POC Glucose (mg/dL) 140 mg/dL (65-110) H 06/20/18 02:02 Random Glucose 114 mg/dL (70-110) H 07/07/18 06:45 Hemoglobin A1c 5.0 % (4.2-6.5) 06/16/18 07:30 Calcium 7.9 mg/dL (8.4-10.5) L 07/07/18 06:45 Phosphorus 3.4 mg/dL (2.5-4.5) 06/16/18 07:30 Magnesium 2.1 mg/dL (1.7-2.2) 06/16/18 07:30 Total Bilirubin 0.3 mg/dL (0.2-1.3) 07/07/18 06:45 AST 47 U/L (17-59) 07/07/18 06:45 ALT 32 U/L (7-56) 07/07/18 06:45 Alkaline Phosphatase 93 U/L (38-126) 07/07/18 06:45 NT-Pro-B Natriuret Pep 78.1 pg/mL (0-450) 06/15/18 20:45 Total Protein 6.2 g/dL (5.8-8.3) 07/07/18 06:45 Albumin 2.6 g/dL (3.0-4.8) L 07/07/18 06:45 Globulin 3.6 gm/dL 07/07/18 06:45 Albumin/Globulin Ratio 0.7 (1.1-1.8) L 07/07/18 06:45 Triglycerides 104 mg/dL (35-160) 06/16/18 07:30 Cholesterol 122 mg/dL (130-200) L 06/16/18 07:30 LDL Cholesterol Direct 77 mg/dL (0-129) 06/16/18 07:30 HDL Cholesterol 23 mg/dL (29-60) L 06/16/18 07:30 Procalcitonin 0.13 NG/ML (0.19-0.49) L 06/16/18 07:30 TSH 3rd Generation 1.23 mIU/mL (0.46-4.68) 06/16/18 07:30 Arterial Blood Potassium 3.5 mmol/L (3.6-5.2) L 06/16/18 16:19 Urine Color Yellow (YELLOW) 06/27/18 16:10 Urine Appearance Slight-cloudy (CLEAR) 06/27/18 16:10 Urine pH 6.0 (4.7-8.0) 06/27/18 16:10 Ur Specific [place] 1.025 (1.005-1.035) 06/27/18 16:10 Urine Protein 100 mg/dL (<30 mg/dL) H 06/27/18 16:10 Urine Glucose (UA) Negative mg/dL (NEGATIVE) 06/27/18 16:10 Urine Ketones Negative mg/dL (NEGATIVE) 06/27/18 16:10 Urine Blood Large (NEGATIVE) H 06/27/18 16:10 Urine Nitrate Negative (NEGATIVE) 06/27/18 16:10 Urine Bilirubin Small (NEGATIVE) H 06/27/18 16:10 Urine Urobilinogen 1.0 E.U./dL (<1 E.U./dL) H 06/27/18 16:10 Ur Leukocyte Esterase Moderate [place]/uL (NEGATIVE) H 06/27/18 16:10 Urine RBC 25 - 30 /hpf (0-2) H 06/27/18 16:10 Urine WBC 2 - 5 /hpf (0-6) 06/27/18 16:10 Ur Epithelial Cells None /hpf (0-5) 06/27/18 16:10 Calcium Oxalate Crystal Small /hpf (NONE) 06/27/18 16:10 Urine Bacteria Small /hpf (NONE) 06/27/18 16:10 Urine Other Uyeast /hpf 06/27/18 16:10 Fluid Source Pleural 06/28/18 15:20 Fluid Appearance Cloudy (CLEAR) 06/28/18 15:20 Fluid WBC 1370.0 /uL (0.0-300.0) H 06/28/18 15:20 Fluid RBC 93840.0 /uL (0.0-0.0) H 06/28/18 15:20 Fluid Tot Cell Count 100 (0-0) H 06/28/18 15:20 Fluid Mononuclear Cell 56.7 % (0-0) H 06/28/18 15:20 Fl Polymorphonucl Cell 43.3 % (0-0) H 06/28/18 15:20 Fluid Comment Red 06/28/18 15:20 Pleural Total Protein 5.0 g/dL 06/28/18 15:10 Pleural Glucose 88 mg/dL 06/28/18 15:10 Pleural Triglycerides 34 mg/dL 06/28/18 15:10 Thoracentesis Fluid pH 7.0 06/28/18 15:10 HIV 1&2 Ag/Ab, 4th Gen Nonreactive (Nonreactive) 06/16/18 08:56 TB Test (QFT) Nil 0.03 IU/mL 06/30/18 07:45 TB Test Mitogen - Nil 2.70 IU/mL 06/30/18 07:45 TB Test Antigen - Nil <0.00 IU/mL 06/30/18 07:45 TB Test TB - Nil <0.00 IU/mL 06/30/18 07:45 TB Test (QFT) Negative (Negative) 06/30/18 07:45 Attending/Attestation - Attestation I have personally seen and examined this patient.: Yes I have fully participated in the care of the patient.: Yes I have reviewed all pertinent clinical information, including history, physical exam and plan: Yes Notes (Text): 07/07/18 16:34 62 year old male with past medical history of Parkinson's disease, hypertenstion, dyslipidemia and recent CVA s/p trach s/p PEG s/p suprapubic catheter who presented with increased secretions from trach. Trach cultures grew Klebsiella Pneumonia and Serratia Marcescens and patient was treated with iv antibiotics. Repeat CXR showed moderatate right pleural effusion and patient underwent thoracocentesis. As per ID no further need for antibiotics and as per pulmonary no need for chest tube or pleural catheter. CT/MRI was reviewed as above. Patient is on aspirin, plavix and statin. PT is following who recommended acute rehab. Patient will be transferred to [facility] rehab. Follow up with pmd, pulmonary, ENT and urology. Continue with aspirin, plavix and statin. Anh Beard MD Hospitalist.
--- NOTE | 2018-07-07 21:57 | PN ---
DATE: 07/07/2018 SUBJECTIVE: The patient is in bed, was seen early this morning in bed. No acute distress. Family members are at the bedside. No fevers. No chills. No nausea. He was seen earlier in 571, bed 1. PHYSICAL EXAMINATION: VITAL SIGNS: Temperature is 98, blood pressure is 116/60, respiratory rate of 18. HEENT: Unremarkable. NECK: Supple. LUNGS: Decreased breath sounds. HEART: Normal S1 and S2. ABDOMEN: Soft. LABORATORY DATA: Laboratory examination reveals a white count of 8.4, hemoglobin of 9. BUN of 20, creatinine of 0.4. Urinalysis is noted. ASSESSMENT AND PLAN: This is a 62-year-old male who was seen earlier today, in [place] had a cerebrovascular accident, suprapubic catheter, percutaneous endoscopic gastrostomy tube, tracheostomy, also had history of Parkinson's disease. Currently off of antibiotics. Afebrile. Does not have a heparin lock. He is at risk for developing nosocomial infections. Aren Webb MD
== END 2018-07-07 16:45 | DRG 137 ==
LOC: ED 20:01 → ERH 22:33 → 5RSO 06-16 00:32 → OBSVTOIN 06-17 08:10
PROVIDERS: ADMIT Internal Medicine; ATTEND Internal Medicine
PROC: BB4BZZZ Ultrasonography of Pleura (ICD-10-PCS; 2018-06-28)
PROC: 0W993ZZ Drainage of Right Pleural Cavity, Percutaneous Approach (ICD-10-PCS; principal; 2018-06-28 14:30)
DX: J15.0 Pneumonia due to Klebsiella pneumoniae (principal); I63.9 Cerebral infarction, unspecified; L89.312 Pressure ulcer of right buttock, stage 2; L89.151 Pressure ulcer of sacral region, stage 1; I11.0 Hypertensive heart disease with heart failure; J90 Pleural effusion, not elsewhere classified; R64 Cachexia; Z93.0 Tracheostomy status; L89.322 Pressure ulcer of left buttock, stage 2; I50.9 Heart failure, unspecified; Q23.1 Congenital insufficiency of aortic valve; J98.11 Atelectasis; R47.01 Aphasia; G20 Parkinson's disease; J04.10 Acute tracheitis without obstruction; J40 Bronchitis, not specified as acute or chronic; E78.5 Hyperlipidemia, unspecified; Z86.73 Personal history of transient ischemic attack (TIA), and cerebral infarction without residual deficits; R32 Unspecified urinary incontinence; R62.7 Adult failure to thrive; Z74.01 Bed confinement status; Z79.02 Long term (current) use of antithrombotics/antiplatelets; Z79.82 Long term (current) use of aspirin; Z82.49 Family history of ischemic heart disease and other diseases of the circulatory system; Z83.3 Family history of diabetes mellitus; Z93.1 Gastrostomy status; Z91.011 Allergy to milk products